=== PATIENT | male | born 1950 | race Caucasian/White ===

== ENCOUNTER 2017-09-22 03:27 | Emergency (ER) | payer OTHER ==
[2017-09-22] MEDS ORDERED: DEXAMETHASONE 10 MG/ML VIAL PO STA (03:45)
[2017-09-22] MEDS ORDERED: ALBUTEROL NEB 2.5 MG/3 ML INH STA (03:45)
[2017-09-22] MEDS ORDERED: IPRATROPIUM 0.2 MG/ML NEB INH STA (03:45)
--- NOTE | 2017-09-22 04:49 | XRAY Report ---
Procedure Date: 09/22/2017 Accession Number: [id number] / [id number] Procedure: XR - Chest 2 View X-Ray CPT Code: 20300 FULL RESULT: EXAM: CHEST RADIOGRAPHY EXAM DATE: 09/22/2017 04:41 AM. CLINICAL HISTORY: [place]. COMPARISON: CXR 1V 12/01/2006. TECHNIQUE: 2 views. FINDINGS: Lungs/Pleura: Basilar atelectasis. No effusion or pneumothorax. Mediastinum: Postoperative changes. No cardiomegaly. Other: None. IMPRESSION: Bibasilar atelectasis. RADIA
--- NOTE | 2017-09-22 05:21 | ED Physician Documentation ---
History of Present Illness - Stated complaint Stated Complaint: SOA - Chief complaint Chief Complaint: Resp - History obtained from History obtained from: Patient - Additonal information Additional information: 67-year-old male presents the emergency department with increasing wheezing and shortness of breath similar to his prior episodes of COPD. Patient has an ongoing history of COPD and did not get significant improvement with his normal inhaler. The patient denies any triggering factors. No fevers, chills, cough.No chest pain or abdominal pain. Symptoms are described as moderate. No other associated symptoms. Review of Systems Constitutional: denies: Fever, Chills Eyes: denies: Discharge Ears: denies: Ear pain Nose: denies: Congestion Throat: denies: Dental pain / toothache Cardiac: denies: Chest pain / pressure Respiratory: reports: Dyspnea, Wheezing GI: denies: Abdominal Pain Musculoskeletal: denies: Neck pain Neurologic: denies: Generalized weakness Immunocompromised: denies: Chemotherapy PD PAST MEDICAL HISTORY - Past Medical History Past Medical History: Yes Cardiovascular: Congestive heart failure, Hypertension, High cholesterol Respiratory: COPD, Emphysema, Shortness of breath : Other Other Past Medical History: Prostate CA - Past Surgical History Past Surgical History: No - Allergies Allergies/Adverse Reactions: Allergies Allergy/AdvReac Type Severity Reaction Status Date / Time buspirone [From BuSpar] Allergy Intermediate Respiratory Verified 09/22/17 03:33 - Social History Does the pt smoke?: Yes Smoking Status: Former smoker Does the pt drink ETOH?: Yes Does the pt have substance abuse?: No - Immunizations Immunizations are current?: Yes PD ED PE NORMAL - General General: Alert and oriented X 3, No acute distress - HEENT HEENT: Atraumatic, PERRL, EOMI, Ears normal - Neck Neck: Supple, no meningeal sign - Cardiac Cardiac: RRR, No gallop - Respiratory Respiratory: Other (The patient has decreased aeration and wheezing diffusely) - Abdomen Abdomen: Soft, Non tender - Derm Derm: Normal color - Extremities Extremities: No deformity - Neuro Neuro: Alert and oriented X 3, Normal speech - Psych Psych: Normal mood Results - Vitals Vitals: Vital Signs - 24 hr 09/22/17 09/22/17 03:33 03:59 Temperature 36.6 C Heart Rate 86 66 Respiratory 20 18 Rate Blood Pressure 163/93 H O2 Saturation 97 Oxygen O2 Source Room air - Rads (name of study) Chest x-ray Radiology: Final report received PD MEDICAL DECISION MAKING - ED course ED course: The patient was treated with a long breathing treatment, the patient was observed in the emergency department and on reevaluation is resting comfortably. The patient had much improved aeration and was reporting that he felt much improved and requested discharge home. The patient currently appears appropriate for discharge. I discussed warning signs and recommended returning to the emergency department immediately for worsening or any concerns. - Sepsis Event Vital Signs: Vital Signs - 24 hr 09/22/17 09/22/17 03:33 03:59 Temperature 36.6 C Heart Rate 86 66 Respiratory 20 18 Rate Blood Pressure 163/93 H O2 Saturation 97 Oxygen O2 Source Room air Departure - Departure Disposition: 01 Home, Self Care Clinical Impression: COPD exacerbation Condition: Good Instructions: COPD Dc, Emphysema Dc Comments: Please follow-up with your primary care physician this week for recheck. Please return to the emergency department immediately for worsening symptoms or any concerns
[2017-09-22 05:24] VITALS: BP 140/76
== END 2017-09-22 05:23 | disposition home or self-care (01) ==
LOC: ED 03:27
DX: J44.1 Chronic obstructive pulmonary disease with (acute) exacerbation (principal); Z87.891 Personal history of nicotine dependence; I11.0 Hypertensive heart disease with heart failure; I50.9 Heart failure, unspecified
CPT/HCPCS: 71046; 94640; 94664; 99283; 99284; A9270

== ENCOUNTER 2017-10-03 09:38 | Outpatient (CLI) | payer OTHER ==
[2017-10-03] MEDS ORDERED: ALBUTEROL NEB 2.5 MG/3 ML INH ONE (12:00)
== END 2017-10-03 09:39 | disposition home or self-care (01) ==
LOC: RT 09:38
PROVIDERS: ATTEND Nurse Practitioner Adult Health
DX: J44.9 Chronic obstructive pulmonary disease, unspecified (principal)
CPT/HCPCS: 94060; 94727

== ENCOUNTER 2017-12-04 10:27 | Outpatient (CLI) | payer OTHER | END 2017-12-04 10:28 | disposition short-term general hospital (02) | LOC: EMS 10:27 | PROVIDERS: ATTEND Surgery | DX: R07.9 Chest pain, unspecified (principal) | CPT/HCPCS: A0425; A0427 ==

== ENCOUNTER 2018-01-18 19:32 | Emergency (ER) | payer OTHER ==
[2018-01-18] MEDS ORDERED: IPRATROPIUM/ALBUTEROL 3 ML NEB INH STA (19:47)
[2018-01-18 19:55] LABS: BASOPHILS # (AUTO) 0.1 10^3/uL (0.0-0.1); BASOPHILS % (AUTO) 0.5 %; EOSINOPHILS # (AUTO) 0.1 10^3/uL (0.0-0.7); EOSINOPHILS % (AUTO) 0.5 %; HGB - HEMOGLOBIN 15.4 g/dL (14.0-18.0); LYMPHOCYTES # (AUTO) 2.6 10^3/uL (1.5-3.5); LYMPHOCYTES % (AUTO) 17.7 %; MEAN CORPUSCULAR HEMOGLOBIN 31.7 pg (27.0-31.0); MEAN CORPUSCULAR HGB CONC 33.7 g/dL (32.0-36.0); MEAN CORPUSCULAR VOLUME 94.1 fL (80.0-94.0); MEAN PLATELET VOLUME 8.1 fL (7.4-11.4); MONOCYTES % (AUTO) 6.9 %; NEUTROPHILS % (AUTO) 74.4 %; PLT - PLATELET COUNT 140 10^3/uL (130-450); RED BLOOD COUNT 4.86 10^6/uL (4.70-6.10); RED CELL DISTRIBUTION WIDTH 14.2 % (12.0-15.0); WHITE BLOOD COUNT 14.8 x10^3/uL (4.8-10.8)
--- NOTE | 2018-01-18 19:59 | ED Physician Documentation ---
PD HPI DYSPNEA - Stated complaint Stated Complaint: SOA - Chief complaint Chief Complaint: Resp - History obtained from History obtained from: Patient - History of Present Illness Timing - onset: How many weeks ago (2 weeks of worse breathing and using nebulizer more. Worse even more the past couple of days. Has cough with some sputum production. Continual wheezing even with nebs.) Timing - onset during: Light activity Timing - details: Gradual onset, Still present Inciting event(s): URI. No: Out of meds Improved by: O2, Inhaler/neb Associated symptoms: Cough, Wheezing, Chest pain / discomfort. No: Fever, Palpitations, Bilateral edema Similar symptoms before: Diagnosis (COPD and had pneumonia recently) Review of Systems Constitutional: reports: Myalgias. denies: Fever, Chills Nose: reports: Rhinorrhea / runny nose, Congestion Cardiac: denies: Chest pain / pressure, Palpitations Respiratory: reports: Dyspnea, Cough, Wheezing GI: denies: Vomiting, Diarrhea Skin: denies: Rash, Lesions Musculoskeletal: denies: Extremity swelling Neurologic: reports: Generalized weakness. denies: Focal weakness, Numbness, Near syncope, Altered mental status PD PAST MEDICAL HISTORY - Past Medical History Cardiovascular: Congestive heart failure, Hypertension, High cholesterol Respiratory: COPD, Emphysema, Shortness of breath : Other - Past Surgical History Past Surgical History: No - Present Medications Home Medications: Ambulatory Orders Medication Instructions Recorded Confirmed Albuterol 2.5 mg INH Q4H PRN #30 neb 01/18/18 Dexamethasone [Decadron] 4 mg PO DAILY #7 tablet 01/18/18 Doxycycline Hyclate 100 mg PO BID #20 capsule 01/18/18 - Allergies Allergies/Adverse Reactions: Allergies Allergy/AdvReac Type Severity Reaction Status Date / Time buspirone [From BuSpar] Allergy Intermediate Respiratory Verified 09/22/17 03:33 - Social History Does the pt smoke?: Yes Smoking Status: Former smoker Does the pt drink ETOH?: Yes Does the pt have substance abuse?: No - Immunizations Immunizations are current?: Yes PD ED PE NORMAL - Vitals Vital signs reviewed: Yes - General General: Alert and oriented X 3, Well developed/nourished, Other (appears in resp distress tripoding. ) - HEENT HEENT: Ears normal, Pharynx benign - Neck Neck: Supple, no meningeal sign, No adenopathy - Cardiac Cardiac: RRR, No murmur - Respiratory Respiratory: No: Clear bilaterally (diffuse wheezing and tight sounds. moderate accessory muscle use. ) - Abdomen Abdomen: Soft, Non tender - Derm Derm: Normal color, Warm and dry - Extremities Extremities: Normal ROM s pain, No edema, No calf tenderness / cord - Neuro Neuro: Alert and oriented X 3, No motor deficit, Normal speech Eye Opening: Spontaneous Motor: Obeys Commands Verbal: Oriented GCS Score: 15 Results - Vitals Vitals: Oxygen O2 Source Nasal cannula Oxygen Flow Rate 2 - EKG (time done) 19:46 Rate: Rate (enter#) (102) Rhythm: Sinus tachycardia [place]: Normal Intervals: Normal SC QRS: Normal Ischemia: Normal ST segments. No: ST elevation c/w ischemia, ST depression Compare to prior EKG: Unchanged from prior EKG - Labs Labs: Laboratory Tests 01/18/18 01/18/18 01/18/18 19:43 19:43 19:43 WBC 14.8 H RBC 4.86 Hgb 15.4 Hct 45.8 MCV 94.1 H MCH 31.7 H MCHC 33.7 RDW 14.2 Plt Count 140 MPV 8.1 Neut # (Auto) 11.0 H Lymph # (Auto) 2.6 [place] # (Auto) 1.0 Eos # (Auto) 0.1 Baso # (Auto) 0.1 Absolute Nucleated RBC 0.01 Nucleated RBC % 0.1 Manual Slide Review Indicated WBC Morphology 2+ HYPERSEG NEUT Platelet Estimate NORMAL (130-450,000) Platelet Morphology 1+ GIANT PLATELETS RBC Morph Micro Appear NORMAL APPEARANCE Sodium 138 Potassium 3.3 L Chloride 105 Carbon Dioxide 26 Anion Gap 7.0 BUN 18 Creatinine 0.9 Estimated GFR (MDRD) 84 L Glucose 157 H Calcium 8.3 L Total Bilirubin 0.6 AST 28 ALT 40 Alkaline Phosphatase 70 Troponin I < 0.04 B-Natriuretic Peptide Total Protein 6.2 L Albumin 3.4 Globulin 2.8 Albumin/Globulin Ratio 1.2 Lipase 37 01/18/18 19:43 WBC RBC Hgb Hct MCV MCH MCHC RDW Plt Count MPV Neut # (Auto) Lymph # (Auto) [place] # (Auto) Eos # (Auto) Baso # (Auto) Absolute Nucleated RBC Nucleated RBC % Manual Slide Review WBC Morphology Platelet Estimate Platelet Morphology RBC Morph Micro Appear Sodium Potassium Chloride Carbon Dioxide Anion Gap BUN Creatinine Estimated GFR (MDRD) Glucose Calcium Total Bilirubin AST ALT Alkaline Phosphatase Troponin I B-Natriuretic Peptide 197 H Total Protein Albumin Globulin Albumin/Globulin Ratio Lipase - Rads (name of study) chest xray Radiology: Prelim report reviewed (somewhat enlarged heart. No infiltrates. ), EMP read contemporaneously PD MEDICAL DECISION MAKING - ED course Complexity details: re-evaluated patient (still wheezing but he feels a lot better and says he always has some wheeze. He feels improved enough to go home. Has nebulizer there. Has home oxygen. ), considered differential (seems flare COPD and likely bronchitis/infectious. ), d/w patient Departure - Departure Disposition: Home, Self Care Clinical Impression: Acute exacerbation of COPD with asthma, Bronchitis Condition: Stable Record reviewed to determine appropriate education?: Yes Instructions: ED Bronchitis Asthmatic, ED COPD Flare Follow-Up: Marcie Mg MD [Primary Care Provider] - Prescriptions: Albuterol 2.5 mg INH Q4H PRN #30 neb PRN Reason: Wheezing Dexamethasone [Decadron] 4 mg PO DAILY #7 tablet Doxycycline Hyclate 100 mg PO BID #20 capsule Comments: Continue usual medications. Use your usual DuoNeb every 4 hours or 4 times a day as you usually do. Add albuterol every 1-2 hours if needed for wheezing. Decadron steroid daily for the following week. Doxycycline antibiotic twice daily for 10 days for presumed infection of bronchitis or early pneumonia. Activity as able. Recheck if not improving over the next couple of days and return sooner if worsening. Discharge Date/Time: 01/18/18 22:11
[2018-01-18 20:12] LABS: ALBUMIN 3.4 g/dL (3.2-5.5); ALBUMIN/GLOBULIN RATIO 1.2 (1.0-2.2); BILIRUBIN,TOTAL 0.6 mg/dL (0.2-1.0); CALCIUM 8.3 mg/dL (8.5-10.3); CREATININE 0.9 mg/dL (0.6-1.2); TOTAL PROTEIN 6.2 g/dL (6.7-8.2)
[2018-01-18] MEDS ORDERED: ALBUTEROL NEB 2.5 MG/3 ML INH STA ×2 (20:21→21:05)
[2018-01-18] MEDS ORDERED: DOXYCYCLINE 100 MG TABLET PO STA (20:21)
[2018-01-18 20:32] LABS: PLATELET ESTIMATE, MANUAL NORMAL (130-450,000) (NORMAL); PLATELET MORPHOLOGY 1+ GIANT PLATELETS (NORMAL); RBC MORPHOLOGY (MULTIPLE) NORMAL APPEARANCE (NORMAL)
[2018-01-18] MEDS ORDERED: DEXAMETHASONE 10 MG/ML VIAL IVP STA (21:05)
--- NOTE | 2018-01-18 21:14 | XRAY Report ---
Reason: dyspnea and cough Procedure Date: 01/18/2018 Accession Number: [id number] / [id number] Procedure: XR - Chest 1 View X-Ray CPT Code: 33427 FULL RESULT: EXAM: CHEST RADIOGRAPHY EXAM DATE: 01/18/2018 08:31 PM. CLINICAL HISTORY: Dyspnea and cough. COMPARISON: Chest x-ray 09/22/2017. TECHNIQUE: 1 view. FINDINGS: Lungs/Pleura: No pleural effusion or pneumothorax. Some attenuation of the vasculature in the upper lungs. Mild right infrahilar linear opacities. Mediastinum: Normal heart size. Status post median sternotomy. Other: None. IMPRESSION: 1. Mild right infrahilar opacities consistent with atelectasis or early pneumonia. 2. Mild attenuation of the vasculature suggesting underlying emphysema. RADIA
[2018-01-18 22:06] VITALS: BP 132/85
== END 2018-01-18 22:11 | disposition home or self-care (01) ==
LOC: ED 19:32
DX: J44.1 Chronic obstructive pulmonary disease with (acute) exacerbation (principal); J45.909 Unspecified asthma, uncomplicated; R00.0 Tachycardia, unspecified; I11.0 Hypertensive heart disease with heart failure; I50.9 Heart failure, unspecified; E78.00 Pure hypercholesterolemia, unspecified; Z87.891 Personal history of nicotine dependence
CPT/HCPCS: 36415; 71045; 80053; 83690; 83880; 84484; 85025; 94640; 96374; 99284; 99285; A9270

== ENCOUNTER 2018-02-04 14:35 | Outpatient (CLI) | payer OTHER | END 2018-02-04 14:36 | disposition critical access hospital (66) | LOC: EMS 14:35 | PROVIDERS: ATTEND Surgery | DX: R06.00 Dyspnea, unspecified (principal) | CPT/HCPCS: A0425; A0427 ==

== ENCOUNTER 2018-02-04 14:47 | Emergency (ER) | payer OTHER ==
--- NOTE | 2018-02-04 14:53 | ED Physician Documentation ---
PD HPI DYSPNEA - Stated complaint Stated Complaint: SOA - History obtained from History obtained from: Patient - History of Present Illness Timing - onset: How many days ago (few) Timing - duration: Days (few) Timing - details: Gradual onset, Still present Inciting event(s): Out of meds ([facility] not [facility] usual Duoneb Rx as yet, so out for couple days, and having some URI symptoms as well.) Improved by: Inhaler/neb (but ran out couple days ago) Worsened by: Exertion Associated symptoms: Cough, Wheezing. No: Fever, Hemoptysis, Bilateral edema Similar symptoms before: Diagnosis Recently seen: Not recently seen Review of Systems Constitutional: reports: Chills, Myalgias. denies: Fever Nose: reports: Rhinorrhea / runny nose, Congestion Throat: denies: Sore throat Respiratory: reports: Dyspnea, Cough, Wheezing GI: denies: Abdominal Pain, Nausea, Vomiting Skin: denies: Rash, Lesions Musculoskeletal: denies: Extremity swelling Neurologic: reports: Generalized weakness. denies: Near syncope PD PAST MEDICAL HISTORY - Past Medical History Cardiovascular: Congestive heart failure, Hypertension, High cholesterol Respiratory: COPD, Emphysema, Shortness of breath : Other - Past Surgical History Past Surgical History: No - Present Medications Home Medications: Ambulatory Orders Medication Instructions Recorded Confirmed Albuterol 2.5 mg INH Q4H PRN #30 neb 01/18/18 Dexamethasone [Decadron] 4 mg PO DAILY #7 tablet 01/18/18 Doxycycline Hyclate 100 mg PO BID #20 capsule 01/18/18 Amox/Clav 875/125 [Augmentin] 1 each PO Q12H #14 tablet 02/04/18 Benzonatate [Tessalon Perle] 100 - 200 mg PO TID PRN #30 capsule 02/04/18 Ipratropium/Albuterol [Duoneb] 3 ml INH Q6H #30 neb 02/04/18 predniSONE [Prednisone] 10 mg PO DAILY #20 tablet 02/04/18 - Allergies Allergies/Adverse Reactions: Allergies Allergy/AdvReac Type Severity Reaction Status Date / Time buspirone [From BuSpar] Allergy Intermediate Respiratory Verified 09/22/17 03:33 - Social History Does the pt smoke?: Yes Smoking Status: Former smoker Does the pt drink ETOH?: Yes Does the pt have substance abuse?: No - Immunizations Immunizations are current?: Yes PD ED PE NORMAL - Vitals Vital signs reviewed: Yes - General General: Alert and oriented X 3, No acute distress, Well developed/nourished - HEENT HEENT: Ears normal, Pharynx benign - Neck Neck: Supple, no meningeal sign, No adenopathy - Cardiac Cardiac: RRR, No murmur - Respiratory Respiratory: No: Clear bilaterally (diminished tidal volume and wheezing noted diffusely. ) - Abdomen Abdomen: Soft, Non tender - Back Back: No CVA TTP - Derm Derm: Normal color, Warm and dry - Extremities Extremities: No tenderness to palpate, Normal ROM s pain, No edema, No calf tenderness / cord - Neuro Neuro: Alert and oriented X 3, No motor deficit, Normal speech Results - Vitals Vitals: Oxygen O2 Source Nasal cannula Oxygen Flow Rate 2 - Labs Labs: Laboratory Tests 02/04/18 02/04/18 02/04/18 15:27 15:27 15:27 WBC 14.0 H RBC 4.94 Hgb 15.6 Hct 46.3 MCV 93.9 MCH 31.6 H MCHC 33.7 RDW 13.9 Plt Count 130 MPV 7.6 Neut # (Auto) Not Reportable Lymph # (Auto) Not Reportable [place] # (Auto) Not Reportable Eos # (Auto) Not Reportable Baso # (Auto) Not Reportable Absolute Nucleated RBC Not Reportable Total Counted 100 Band Neuts % (Manual) 7 Abnorm Lymph % (Manual) 0 Nucleated RBC % Not Reportable Neutrophils # (Manual) 11.9 H Lymphocytes # (Manual) 1.8 Monocytes # (Manual) 0.3 Eosinophils # (Manual) 0.0 Basophils # (Manual) 0.0 Differential Comment MANUAL DIFFERENTIAL Manual Slide Review Indicated WBC Morphology NORMAL APPEARANCE Platelet Estimate NORMAL (130-450,000) Platelet Morphology NORMAL APPEARANCE RBC Morph Micro Appear NORMAL APPEARANCE Sodium 136 Potassium 4.2 Chloride 100 L Carbon Dioxide 28 Anion Gap 8.0 BUN 20 Creatinine 0.8 Estimated GFR (MDRD) 96 Glucose 215 H Calcium 8.6 Total Bilirubin 1.5 H AST 29 ALT 65 H Alkaline Phosphatase 81 Troponin I < 0.04 B-Natriuretic Peptide Total Protein 5.8 L Albumin 3.4 Globulin 2.4 Albumin/Globulin Ratio 1.4 Lipase 02/04/18 15:27 WBC RBC Hgb Hct MCV MCH MCHC RDW Plt Count MPV Neut # (Auto) Lymph # (Auto) [place] # (Auto) Eos # (Auto) Baso # (Auto) Absolute Nucleated RBC Total Counted Band Neuts % (Manual) Abnorm Lymph % (Manual) Nucleated RBC % Neutrophils # (Manual) Lymphocytes # (Manual) Monocytes # (Manual) Eosinophils # (Manual) Basophils # (Manual) Differential Comment Manual Slide Review WBC Morphology Platelet Estimate Platelet Morphology RBC Morph Micro Appear Sodium Potassium Chloride Carbon Dioxide Anion Gap BUN Creatinine Estimated GFR (MDRD) Glucose Calcium Total Bilirubin AST ALT Alkaline Phosphatase Troponin I B-Natriuretic Peptide 132 H Total Protein Albumin Globulin Albumin/Globulin Ratio Lipase - Rads (name of study) chest xray Radiology: Prelim report reviewed, EMP read contemporaneously (no significant infiltrates), See rad report PD MEDICAL DECISION MAKING - ED course Complexity details: reviewed results, re-evaluated patient (improved with neb. ), considered differential (given history of COPD, with resp infection and flare of it, would treat with abx for likely improved outcome. ), d/w patient Departure - Departure Disposition: Home, Self Care Clinical Impression: Acute exacerbation of COPD with asthma, Bronchitis Dyspnea Qualifiers: Dyspnea type: dyspnea on exertion Qualified Code(s): R06.09 - Other forms of dyspnea Condition: Stable Record reviewed to determine appropriate education?: Yes Follow-Up: Marcie Mg MD [Primary Care Provider] - Prescriptions: Amox/Clav 875/125 [Augmentin] 1 each PO Q12H #14 tablet Benzonatate [Tessalon Perle] 100 - 200 mg PO TID PRN #30 capsule PRN Reason: Cough Ipratropium/Albuterol [Duoneb] 3 ml INH Q6H #30 neb predniSONE [Prednisone] 10 mg PO DAILY #20 tablet Comments: Continue usual medications. Increase her prednisone to 20 mg daily for the next 3 or 4 days and then back down to 10 mg. Continue your duo nebs 4 times a day. Add Augmentin antibiotic twice daily for a week. Use Tessalon if needed for cough. Follow-up with your primary care if not improving over the next couple of days and return sooner if worse. Discharge Date/Time: 02/04/18 16:45
[2018-02-04 15:03] VITALS: BP 119/65
[2018-02-04] MEDS: SODIUM CHLORIDE 0.9% 500 ML IV ONE (15:34)
[2018-02-04 15:35] LABS: BASOPHILS % (AUTO) 0.2 %; HGB - HEMOGLOBIN 15.6 g/dL (14.0-18.0); LYMPHOCYTES % (AUTO) 7.5 %; MEAN CORPUSCULAR HEMOGLOBIN 31.6 pg (27.0-31.0); MEAN CORPUSCULAR HGB CONC 33.7 g/dL (32.0-36.0); MEAN CORPUSCULAR VOLUME 93.9 fL (80.0-94.0); MEAN PLATELET VOLUME 7.6 fL (7.4-11.4); MONOCYTES % (AUTO) 5.3 %; PLT - PLATELET COUNT 130 10^3/uL (130-450); RED BLOOD COUNT 4.94 10^6/uL (4.70-6.10); RED CELL DISTRIBUTION WIDTH 13.9 % (12.0-15.0)
[2018-02-04 15:36] LABS: ABNORMAL LYMPHS % (MANUAL) 0 %
[2018-02-04 15:47] LABS: ALBUMIN 3.4 g/dL (3.2-5.5); ALBUMIN/GLOBULIN RATIO 1.4 (1.0-2.2); BILIRUBIN,TOTAL 1.5 mg/dL (0.2-1.0); CALCIUM 8.6 mg/dL (8.5-10.3); CREATININE 0.8 mg/dL (0.6-1.2); TOTAL PROTEIN 5.8 g/dL (6.7-8.2)
[2018-02-04 15:53] LABS: BAND NEUTROPHILS % (MANUAL) 7 %; LYMPHOCYTES # (MANUAL) 1.8 10^3/uL (1.5-3.5); LYMPHOCYTES % (MANUAL) 13 %; MONOCYTES # (MANUAL) 0.3 10^3/uL (0.0-1.0); NEUTROPHILS # (MANUAL) 11.9 10^3/uL (1.5-6.6); NEUTROPHILS % (MANUAL) 78 %
[2018-02-04 15:54] LABS: DIFFERENTIAL COMMENT MANUAL DIFFERENTIAL; PLATELET ESTIMATE, MANUAL NORMAL (130-450,000) (NORMAL); PLATELET MORPHOLOGY NORMAL APPEARANCE (NORMAL); RBC MORPHOLOGY (MULTIPLE) NORMAL APPEARANCE (NORMAL)
[2018-02-04] MEDS: cefTRIAXone 1 GM VIAL IVP STA (15:56)
[2018-02-04] MEDS: DEXAMETHASONE 10 MG/ML VIAL IVP STA (15:56)
[2018-02-04] MEDS: IPRATROPIUM/ALBUTEROL 3 ML NEB INH STA (15:58)
--- NOTE | 2018-02-04 16:21 | XRAY Report ---
Reason: dyspnea and cough Procedure Date: 02/04/2018 Accession Number: [id number] / [id number] Procedure: XR - Chest 2 View X-Ray CPT Code: 67187 FULL RESULT: EXAM: CHEST RADIOGRAPHY EXAM DATE: 02/04/2018 03:47 PM. CLINICAL HISTORY: Dyspnea and cough. COMPARISON: CHEST 1 VIEW 01/18/2018 8:21 PM. TECHNIQUE: 2 views. FINDINGS: Lungs/Pleura: No consolidative process or focal pneumonia. Negative for pleural effusion and pneumothorax. Lung volumes appear within normal limits. Mediastinum: Previous median sternotomy noted. Trachea is midline. Heart size is normal. Other: None. IMPRESSION: Negative for an acute cardiopulmonary abnormality. RADIA
== END 2018-02-04 16:45 | disposition home or self-care (01) ==
LOC: EDUNIT# → ED 14:47
DX: J44.1 Chronic obstructive pulmonary disease with (acute) exacerbation (principal); J40 Bronchitis, not specified as acute or chronic; I11.0 Hypertensive heart disease with heart failure; I50.9 Heart failure, unspecified; E78.00 Pure hypercholesterolemia, unspecified; Z87.891 Personal history of nicotine dependence
CPT/HCPCS: 36415; 71046; 80053; 83690; 83880; 84484; 85025; 94640; 96374; 99283; 99284

== ENCOUNTER 2018-02-09 02:04 | Outpatient (CLI) | payer OTHER | END 2018-02-09 02:05 | disposition critical access hospital (66) | LOC: EMS 02:04 | PROVIDERS: ATTEND Surgery | DX: R06.02 Shortness of breath (principal); R53.1 Weakness | CPT/HCPCS: A0425; A0427 ==

== ENCOUNTER 2018-02-10 16:09 | Outpatient (CLI) | payer OTHER | END 2018-02-10 16:10 | disposition critical access hospital (66) | LOC: EMS 16:09 | PROVIDERS: ATTEND Surgery | DX: R10.30 Lower abdominal pain, unspecified (principal); R19.8 Other specified symptoms and signs involving the digestive system and abdomen | CPT/HCPCS: A0425; A0429 ==

== ENCOUNTER 2018-02-21 23:27 | Outpatient (CLI) | payer OTHER | END 2018-02-21 23:28 | disposition critical access hospital (66) | LOC: EMS 23:27 | PROVIDERS: ATTEND Surgery | DX: R06.00 Dyspnea, unspecified (principal) | CPT/HCPCS: A0425; A0427 ==

== ENCOUNTER 2018-02-21 23:35 | Emergency (ER) | payer OTHER ==
[2018-02-21] MEDS ORDERED: methylPREDNISolone SUCCINATE 125 MG/2 ML VIAL IVP STA (23:43)
--- NOTE | 2018-02-22 00:03 | XRAY Report ---
Reason: dyspena Procedure Date: 02/21/2018 Accession Number: [id number] / [id number] Procedure: XR - Chest 1 View X-Ray CPT Code: 38348 FULL RESULT: EXAM: CHEST RADIOGRAPHY EXAM DATE: 02/21/2018 11:56 PM. CLINICAL HISTORY: Dyspena. COMPARISON: CHEST 1 VIEW 02/09/2018 2:32 AM. TECHNIQUE: 1 view. FINDINGS: Lungs/Pleura: No focal opacities evident. No pleural effusion. No pneumothorax. Mediastinum: Within exam limitations, the cardiomediastinal contour is normal. Other: None. IMPRESSION: Normal single view chest. RADIA
[2018-02-22 00:17] LABS: VBG PCO2 34.4 mmHg (41-51); VBG PH 7.46 (7.31-7.41); VBG PO2 91.9 mmHg (25-47)
[2018-02-22 00:18] LABS: VBG BASE EXCESS 0.6 mmol/L (-2 - +2)
--- NOTE | 2018-02-22 00:22 | ED Physician Documentation ---
PD HPI DYSPNEA - Stated complaint Stated Complaint: SOA - Chief complaint Chief Complaint: Resp - History obtained from History obtained from: Patient, Family, EMS - History of Present Illness Timing - onset: How many weeks ago (4) Timing - onset during: Rest Timing - duration: Weeks (4) Timing - details: Gradual onset, Still present, Waxing and waning Inciting event(s): URI Improved by: Inhaler/neb, Steroids Worsened by: Exertion, Coughing Associated symptoms: Cough, Wheezing. 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 Over the past 4 weeks he has had increased symptoms of dyspnea and cough. He has coughed up some yellow and green phlegm but he has not had fever or chest pain. He states that he has been taking some prednisone he is gone to taking 20 mg/day which seemed to help for a while and this is not helping any longer. He was unable to get any relief with 30 mg today and called the ambulance. He has been using his rescue inhaler and nebulizer machine. He has been placed on oxygen within the past month. He has an appointment to see the oyster buyer in 4 days. Review of Systems Constitutional: reports: Fatigue. denies: Fever Eyes: denies: Decreased vision Ears: denies: Ear pain Nose: reports: Congestion. denies: Rhinorrhea / runny nose Throat: denies: Sore throat Cardiac: denies: Chest pain / pressure, Palpitations Respiratory: reports: Dyspnea, Cough, Wheezing. denies: Hemoptysis GI: denies: Abdominal Pain, Nausea, Vomiting : denies: Dysuria, Frequency Musculoskeletal: denies: Neck pain, Back pain, Extremity pain Neurologic: denies: Generalized weakness, Focal weakness, Numbness Endocrine: reports: Polydypsia PD PAST MEDICAL HISTORY - Past Medical History Cardiovascular: Congestive heart failure, Hypertension, High cholesterol Respiratory: COPD, Emphysema, Shortness of breath : Other - Past Surgical History Past Surgical History: No - Present Medications Home Medications: Ambulatory Orders Medication Instructions Recorded Confirmed Albuterol 2.5 mg INH Q4H PRN #30 neb 01/18/18 Dexamethasone [Decadron] 4 mg PO DAILY #7 tablet 01/18/18 Doxycycline Hyclate 100 mg PO BID #20 capsule 01/18/18 Amox/Clav 875/125 [Augmentin] 1 each PO Q12H #14 tablet 02/04/18 Benzonatate [Tessalon Perle] 100 - 200 mg PO TID PRN #30 capsule 02/04/18 predniSONE [Prednisone] 10 mg PO DAILY #20 tablet 02/04/18 Azithromycin [Zithromax] 0 mg PO DAILY #6 tablet 02/09/18 Ipratropium/Albuterol [Duoneb] 3 ml INH Q6H #30 neb 02/09/18 predniSONE [Deltasone] 10 mg PO [id number] #30 tab 02/09/18 Amox/Clav 875/125 [Augmentin] 1 each PO Q12H #14 tablet 02/22/18 predniSONE [Deltasone] 10 mg PO ONCE #26 tablet 02/22/18 - Allergies Allergies/Adverse Reactions: Allergies Allergy/AdvReac Type Severity Reaction Status Date / Time buspirone [From BuSpar] Allergy Intermediate Respiratory Verified 02/10/18 16:39 - Social History Does the pt smoke?: Yes Smoking Status: Current every day smoker Does the pt drink ETOH?: Yes Does the pt have substance abuse?: No - Immunizations Immunizations are current?: Yes - POLST Patient has POLST: No PD ED PE NORMAL - Vitals Vital signs reviewed: Yes - General General: Alert and oriented X 3, Well developed/nourished, Other (acute dyspnea speaking in 4-6 word sentences ) - HEENT HEENT: Atraumatic, PERRL, EOMI, Other (mild inflamation along the umbo on the left side dry mucous membranes ) - Neck Neck: Supple, no meningeal sign, No bony TTP - Cardiac Cardiac: RRR, No murmur - Respiratory Respiratory: Other (tachypnea at rest with fine wheeze and diminished breat sounds bilaterally ) - Abdomen Abdomen: Soft, Non tender - Back Back: No CVA TTP, No spinal TTP - Derm Derm: Normal color, Warm and dry, No rash - Extremities Extremities: No deformity, Normal ROM s pain, No edema, No calf tenderness / cord - Neuro Neuro: Alert and oriented X 3, 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, No motor deficit, No sensory deficit, Normal speech Eye Opening: Spontaneous Motor: Obeys Commands Verbal: Oriented GCS Score: 15 - Psych Psych: Normal mood, Normal affect Results - Vitals Vitals: Vital Signs - 24 hr 02/21/18 02/22/18 02/22/18 23:40 00:46 01:09 Temperature 36.1 C L Heart Rate 99 95 85 Respiratory 28 H 20 20 Rate Blood Pressure 128/81 H 103/55 L 122/77 O2 Saturation 99 94 99 Oxygen O2 Source Room air Oxygen Flow Rate 2 - Labs Labs: Laboratory Tests 02/21/18 02/22/18 02/22/18 00:05 00:05 00:05 WBC 14.7 H RBC 4.36 L Hgb 13.7 L Hct 40.2 L MCV 92.3 MCH 31.5 H MCHC 34.1 RDW 14.0 Plt Count 142 MPV 7.9 Neut # (Auto) Not Reportable Lymph # (Auto) Not Reportable Arthur # (Auto) Not Reportable Eos # (Auto) Not Reportable Baso # (Auto) Not Reportable Absolute Nucleated RBC Not Reportable Total Counted 100 Band Neuts % (Manual) 6 Reactive Lymphs % (Man) 5 Abnorm Lymph % (Manual) 0 Metamyelocytes % 1 H Nucleated RBC % Not Reportable Neutrophils # (Manual) 12.8 H Lymphocytes # (Manual) 1.3 L Monocytes # (Manual) 0.4 Eosinophils # (Manual) 0.0 Basophils # (Manual) 0.0 Differential Comment MANUAL DIFFERENTIAL Platelet Estimate NORMAL (130-450,000) Platelet Morphology NORMAL APPEARANCE RBC Morph Micro Appear NORMAL APPEARANCE VBG pH VBG pCO2 VBG pO2 VBG HCO3 VBG Total CO2 VBG O2 Saturation VBG Base Excess Sodium 139 Potassium 4.4 Chloride 105 Carbon Dioxide 25 Anion Gap 9.0 BUN 15 Creatinine 0.8 Estimated GFR (MDRD) 96 Glucose 164 H Lactic Acid Calcium 8.7 Total Bilirubin 0.9 AST 22 ALT 46 Alkaline Phosphatase 98 Troponin I < 0.04 B-Natriuretic Peptide Total Protein 5.7 L Albumin 3.1 L Globulin 2.6 Albumin/Globulin Ratio 1.2 Lipase 27 02/22/18 02/22/18 02/22/18 00:05 00:05 00:05 WBC RBC Hgb Hct MCV MCH MCHC RDW Plt Count MPV Neut # (Auto) Lymph # (Auto) Arthur # (Auto) Eos # (Auto) Baso # (Auto) Absolute Nucleated RBC Total Counted Band Neuts % (Manual) Reactive Lymphs % (Man) Abnorm Lymph % (Manual) Metamyelocytes % Nucleated RBC % Neutrophils # (Manual) Lymphocytes # (Manual) Monocytes # (Manual) Eosinophils # (Manual) Basophils # (Manual) Differential Comment Platelet Estimate Platelet Morphology RBC Morph Micro Appear VBG pH 7.460 H VBG pCO2 34.4 L VBG pO2 91.9 H VBG HCO3 23.9 VBG Total CO2 25.0 VBG O2 Saturation 96.8 H VBG Base Excess 0.6 Sodium Potassium Chloride Carbon Dioxide Anion Gap BUN Creatinine Estimated GFR (MDRD) Glucose Lactic Acid 2.3 H Calcium Total Bilirubin AST ALT Alkaline Phosphatase Troponin I B-Natriuretic Peptide 161 H Total Protein Albumin Globulin Albumin/Globulin Ratio Lipase - Rads (name of study) 1 veiw chest Radiology: Prelim report reviewed (Impression normal single view chest.), EMP read indepedently, See rad report Procedures - IVC sono (time) 0100 Bedside IVC sono: IVC measures (cm) (1.07), IVC collapsed c insp (cm) (complete), Dehydration (est 1 liter deficit) PD MEDICAL DECISION MAKING - ED course Complexity details: reviewed old records, reviewed results, re-evaluated patient, considered differential, d/w patient, d/w family ED course: 67-year-old male with steroid-dependent asthma presents to the emergency department with acute dyspnea and he does not appear to have acute pneumonia but an exacerbation of his COPD. He has been coughing up some scant amount of yellow and green phlegm and on examination has signs of otitis in the left ear. In the emergency department he is administered Solu-Medrol 125 mg intravenously and he feels this has a prompt and sustained noticeable improvement. This improvement happens in a short order. On interrogation of the inferior vena cava the patient is found to be dehydrated and he is administered intravenous saline as well. His lactate was 2.3 on arrival. He is also administered Rocephin 1 g intravenously. Chest x-ray appea rs dry. The patient will need an increase in his prednisone we will put him on a taper starting at 60 mg/day and lowering to 40 mg by the time he goes into see his oyster buyer. Departure - Departure Disposition: 01 Home, Self Care Clinical Impression: COPD exacerbation Otitis media Qualifiers: Otitis media type: suppurative Chronicity: acute Laterality: left Recurrence: not specified as recurrent Spontaneous tympanic membrane rupture: without spontaneous rupture Qualified Code(s): H66.002 - Acute suppurative otitis media without spontaneous rupture of ear drum, left ear Condition: Stable Instructions: ED COPD Flare, ED Otitis Media Acute Adult Follow-Up: Marcie Mg MD [Primary Care Provider] - Prescriptions: Amox/Clav 875/125 [Augmentin] 1 each PO Q12H #14 tablet predniSONE [Deltasone] 10 mg PO ONCE #26 tablet
[2018-02-22 00:23] LABS: BASOPHILS % (AUTO) 0.6 %; HGB - HEMOGLOBIN 13.7 g/dL (14.0-18.0); LYMPHOCYTES % (AUTO) 9.4 %; MEAN CORPUSCULAR HEMOGLOBIN 31.5 pg (27.0-31.0); MEAN CORPUSCULAR HGB CONC 34.1 g/dL (32.0-36.0); MEAN CORPUSCULAR VOLUME 92.3 fL (80.0-94.0); MEAN PLATELET VOLUME 7.9 fL (7.4-11.4); MONOCYTES % (AUTO) 5.5 %; NEUTROPHILS % (AUTO) 84.5 %; PLT - PLATELET COUNT 142 10^3/uL (130-450); RED BLOOD COUNT 4.36 10^6/uL (4.70-6.10); WHITE BLOOD COUNT 14.7 x10^3/uL (4.8-10.8)
[2018-02-22 00:28] LABS: ALBUMIN 3.1 g/dL (3.2-5.5); ALBUMIN/GLOBULIN RATIO 1.2 (1.0-2.2); BILIRUBIN,TOTAL 0.9 mg/dL (0.2-1.0); CALCIUM 8.7 mg/dL (8.5-10.3); CREATININE 0.8 mg/dL (0.6-1.2); TOTAL PROTEIN 5.7 g/dL (6.7-8.2)
[2018-02-22 00:31] LABS: ABNORMAL LYMPHS % (MANUAL) 0 %
[2018-02-22] MEDS ORDERED: cefTRIAXone 1 GM in SODIUM CHLORIDE 0.9% MINIBAG 100 ML IV STA (00:44)
[2018-02-22] MEDS ORDERED: SODIUM CHLORIDE 0.9% 1,000 ML IV ONE (00:45)
[2018-02-22 00:46] LABS: BAND NEUTROPHILS % (MANUAL) 6 %; LYMPHOCYTES # (MANUAL) 1.3 10^3/uL (1.5-3.5); LYMPHOCYTES % (MANUAL) 4 %; METAMYELOCYTES % (MANUAL) 1 %; MONOCYTES # (MANUAL) 0.4 10^3/uL (0.0-1.0); NEUTROPHILS # (MANUAL) 12.8 10^3/uL (1.5-6.6); NEUTROPHILS % (MANUAL) 81 %
[2018-02-22 00:47] LABS: DIFFERENTIAL COMMENT MANUAL DIFFERENTIAL; PLATELET ESTIMATE, MANUAL NORMAL (130-450,000) (NORMAL); PLATELET MORPHOLOGY NORMAL APPEARANCE (NORMAL); RBC MORPHOLOGY (MULTIPLE) NORMAL APPEARANCE (NORMAL)
[2018-02-22 02:32] VITALS: BP 134/83
== END 2018-02-22 02:42 | disposition home or self-care (01) ==
LOC: EDUNIT# → ED 23:35
DX: J44.1 Chronic obstructive pulmonary disease with (acute) exacerbation (principal); H66.002 Acute suppurative otitis media without spontaneous rupture of ear drum, left ear; I11.0 Hypertensive heart disease with heart failure; I50.9 Heart failure, unspecified; E78.00 Pure hypercholesterolemia, unspecified; F17.200 Nicotine dependence, unspecified, uncomplicated
CPT/HCPCS: 36415; 71045; 80053; 82803; 83605; 83690; 83880; 84484; 85025; 87040; 96365; 96375; 99284

== ENCOUNTER 2018-03-03 14:37 | Emergency (ER) | payer OTHER ==
[2018-03-03 15:39] LABS: BASOPHILS % (AUTO) 0.5 %; EOSINOPHILS % (AUTO) 0.1 %; HGB - HEMOGLOBIN 14.3 g/dL (14.0-18.0); LYMPHOCYTES % (AUTO) 8.3 %; MEAN CORPUSCULAR HEMOGLOBIN 31.9 pg (27.0-31.0); MEAN CORPUSCULAR HGB CONC 34.9 g/dL (32.0-36.0); MEAN CORPUSCULAR VOLUME 91.3 fL (80.0-94.0); MEAN PLATELET VOLUME 8.2 fL (7.4-11.4); MONOCYTES % (AUTO) 6.5 %; NEUTROPHILS % (AUTO) 84.6 %; PLT - PLATELET COUNT 134 10^3/uL (130-450); RED BLOOD COUNT 4.47 10^6/uL (4.70-6.10); RED CELL DISTRIBUTION WIDTH 14.6 % (12.0-15.0); WHITE BLOOD COUNT 15.2 x10^3/uL (4.8-10.8)
[2018-03-03 15:40] LABS: BILIRUBIN,URINE NEGATIVE (NEGATIVE); GLUCOSE, URINE (UA) NEGATIVE (NEGATIVE); KETONES,URINE (UA) NEGATIVE (NEGATIVE); LEUKOCYTE ESTERASE, URINE NEGATIVE (NEGATIVE); NITRITE,URINE NEGATIVE (NEGATIVE); OCCULT BLOOD,URINE NEGATIVE (NEGATIVE); PROTEIN,URINE NEGATIVE (NEGATIVE); UROBILINOGEN,URINE 0.2 (NORMAL) E.U./dL (NORMAL)
[2018-03-03 15:41] LABS: ALBUMIN 3.2 g/dL (3.2-5.5); ALBUMIN/GLOBULIN RATIO 1.2 (1.0-2.2); CALCIUM 9.1 mg/dL (8.5-10.3); CREATININE 1.1 mg/dL (0.6-1.2); TOTAL PROTEIN 5.9 g/dL (6.7-8.2)
[2018-03-03 15:43] LABS: ABNORMAL LYMPHS % (MANUAL) 0 %
[2018-03-03 15:43] LABS: CLARITY,URINE CLEAR (CLEAR)
[2018-03-03] MEDS ORDERED: IPRATROPIUM/ALBUTEROL 3 ML NEB INH STA (15:58)
[2018-03-03 16:12] LABS: BAND NEUTROPHILS % (MANUAL) 2 %; LYMPHOCYTES # (MANUAL) 1.4 10^3/uL (1.5-3.5); LYMPHOCYTES % (MANUAL) 5 %; MONOCYTES # (MANUAL) 0.3 10^3/uL (0.0-1.0); NEUTROPHILS # (MANUAL) 13.5 10^3/uL (1.5-6.6); NEUTROPHILS % (MANUAL) 87 %
[2018-03-03 16:13] LABS: DIFFERENTIAL COMMENT MANUAL DIFFERENTIAL; PLATELET ESTIMATE, MANUAL NORMAL (130-450,000) (NORMAL); PLATELET MORPHOLOGY NORMAL APPEARANCE (NORMAL); RBC MORPHOLOGY (MULTIPLE) NORMAL APPEARANCE (NORMAL)
--- NOTE | 2018-03-03 16:31 | XRAY Report ---
Reason: chest pain Procedure Date: 03/03/2018 Accession Number: [id number] / [id number] Procedure: XR - Chest 1 View X-Ray CPT Code: 24005 FULL RESULT: EXAM: CHEST RADIOGRAPHY EXAM DATE: 03/03/2018 04:14 PM. CLINICAL HISTORY: Chest pain. COMPARISON: None. TECHNIQUE: 1 view. FINDINGS: Lungs/Pleura: Blunting left costophrenic angle consistent with small effusion. Left basilar atelectasis. Mild atelectasis right costophrenic angle. Mediastinum: Post sternotomy. Heart size normal. Other: None. IMPRESSION: Left basilar atelectasis, small left effusion. RADIA
[2018-03-03] MEDS ORDERED: FUROSEMIDE 40 MG/4 ML VIAL IVP STA (16:52)
--- NOTE | 2018-03-03 18:53 | ED Physician Documentation ---
History of Present Illness - Stated complaint Stated Complaint: WEAKNESS, UNABLE TO STAND - Chief complaint Chief Complaint: General - History obtained from History obtained from: Patient - History of Present Illness Timing: How many days ago (2) Pain level max: 3 Pain level now: 3 Severity Comments: Mild Quality: Dull Radiates to: None Improved by: Nothing Worsened by: Nothing Associated symptoms: Shortness of breath Review of Systems Ten Systems: 10 systems reviewed and negative Constitutional: reports: Reviewed and negative Eyes: reports: Reviewed and negative Ears: reports: Reviewed and negative Nose: reports: Reviewed and negative Throat: reports: Reviewed and negative Cardiac: reports: Reviewed and negative Respiratory: reports: Reviewed and negative GI: reports: Reviewed and negative : reports: Reviewed and negative Skin: reports: Reviewed and negative Musculoskeletal: reports: Reviewed and negative Neurologic: reports: Reviewed and negative Psychiatric: reports: Reviewed and negative Endocrine: reports: Reviewed and negative Immunocompromised: reports: Reviewed and negative PD PAST MEDICAL HISTORY - Past Medical History Cardiovascular: Congestive heart failure, Hypertension, High cholesterol Respiratory: COPD, Emphysema, Shortness of breath Neuro: Head injury Endocrine/Autoimmune: Type 1 diabetes GI: GERD : Other Musculoskeletal: Osteoarthritis - Past Surgical History Past Surgical History: No Cardiovascular: CABG HEENT: Cataracts - Present Medications Home Medications: Ambulatory Orders Medication Instructions Recorded Confirmed Albuterol 2.5 mg INH Q4H PRN #30 neb 01/18/18 03/03/18 predniSONE [Prednisone] 10 mg PO DAILY #20 tablet 02/04/18 03/03/18 Azithromycin [Zithromax] 0 mg PO DAILY #6 tablet 02/09/18 Ipratropium/Albuterol [Duoneb] 3 ml INH Q6H #30 neb 02/09/18 03/03/18 predniSONE [Deltasone] 10 mg PO [id number] #30 tab 02/09/18 03/03/18 predniSONE [Deltasone] 10 mg PO ONCE #26 tablet 02/22/18 03/03/18 - Allergies Allergies/Adverse Reactions: Allergies Allergy/AdvReac Type Severity Reaction Status Date / Time buspirone [From BuSpar] Allergy Intermediate Respiratory Verified 03/03/18 14:49 - Social History Does the pt smoke?: Yes Smoking Status: Current every day smoker Does the pt drink ETOH?: Yes Does the pt have substance abuse?: No - Immunizations Immunizations are current?: Yes - POLST Patient has POLST: No PD ED PE NORMAL - Vitals Vital signs reviewed: Yes - General General: Alert and oriented X 3, No acute distress - HEENT HEENT: PERRL - Neck Neck: Supple, no meningeal sign - Cardiac Cardiac: RRR, No murmur - Respiratory Respiratory: Clear bilaterally - Abdomen Abdomen: Normal bowel sounds, Soft, Non tender, Non distended - Derm Derm: Warm and dry - Extremities Extremities: No deformity, Other (Mild pitting edema bilaterally) - Neuro Neuro: Alert and oriented X 3 - Psych Psych: Normal mood, Normal affect Results - Vitals Vitals: Vital Signs - 24 hr 03/03/18 03/03/18 03/03/18 14:44 16:27 17:00 Temperature 36.9 C Heart Rate 102 H 95 93 Respiratory 14 21 24 Rate Blood Pressure 91/52 L 110/89 H O2 Saturation 95 98 03/03/18 19:03 Temperature 36.8 C Heart Rate 108 H Respiratory 20 Rate Blood Pressure 97/76 O2 Saturation 96 Oxygen O2 Source Room air Oxygen Flow Rate 3 - EKG (time done) 1616 Rate: Rate (enter#) (93) Rhythm: NSR [place]: Normal Intervals: Normal [place] QRS: Normal Ischemia: Normal ST segments. No: T wave inversion - Labs Labs: Laboratory Tests 03/03/18 03/03/18 03/03/18 15:19 15:19 15:19 WBC 15.2 H RBC 4.47 L Hgb 14.3 Hct 40.8 L MCV 91.3 MCH 31.9 H MCHC 34.9 RDW 14.6 Plt Count 134 MPV 8.2 Neut # (Auto) Not Reportable Lymph # (Auto) Not Reportable Mckean # (Auto) Not Reportable Eos # (Auto) Not Reportable Baso # (Auto) Not Reportable Absolute Nucleated RBC Not Reportable Total Counted 100 Band Neuts % (Manual) 2 Reactive Lymphs % (Man) 4 Abnorm Lymph % (Manual) 0 Nucleated RBC % Not Reportable Neutrophils # (Manual) 13.5 H Lymphocytes # (Manual) 1.4 L Monocytes # (Manual) 0.3 Eosinophils # (Manual) 0.0 Basophils # (Manual) 0.0 Differential Comment MANUAL DIFFERENTIAL Platelet Estimate NORMAL (130-450,000) Platelet Morphology NORMAL APPEARANCE RBC Morph Micro Appear NORMAL APPEARANCE Sodium 132 L Potassium 3.9 Chloride 93 L Carbon Dioxide 28 Anion Gap 11.0 BUN 34 H Creatinine 1.1 Estimated GFR (MDRD) 67 L Glucose 133 H Calcium 9.1 Total Bilirubin 1.0 AST 30 ALT 46 Alkaline Phosphatase 80 Troponin I < 0.04 B-Natriuretic Peptide Total Protein 5.9 L Albumin 3.2 Globulin 2.7 Albumin/Globulin Ratio 1.2 Lipase 93 H Urine Color Urine Clarity Urine pH Ur Specific [place] Urine Protein Urine Glucose (UA) Urine Ketones Urine Occult Blood Urine Nitrite Urine Bilirubin Urine Urobilinogen Ur Leukocyte Esterase Ur Microscopic Review Urine Culture Comments 03/03/18 03/03/18 15:19 15:23 WBC RBC Hgb Hct MCV MCH MCHC RDW Plt Count MPV Neut # (Auto) Lymph # (Auto) Mckean # (Auto) Eos # (Auto) Baso # (Auto) Absolute Nucleated RBC Total Counted Band Neuts % (Manual) Reactive Lymphs % (Man) Abnorm Lymph % (Manual) Nucleated RBC % Neutrophils # (Manual) Lymphocytes # (Manual) Monocytes # (Manual) Eosinophils # (Manual) Basophils # (Manual) Differential Comment Platelet Estimate Platelet Morphology RBC Morph Micro Appear Sodium Potassium Chloride Carbon Dioxide Anion Gap BUN Creatinine Estimated GFR (MDRD) Glucose Calcium Total Bilirubin AST ALT Alkaline Phosphatase Troponin I B-Natriuretic Peptide 109 H Total Protein Albumin Globulin Albumin/Globulin Ratio Lipase Urine Color YELLOW Urine Clarity CLEAR Urine pH 5.0 Ur Specific [place] >=1.030 H Urine Protein NEGATIVE Urine Glucose (UA) NEGATIVE Urine Ketones NEGATIVE Urine Occult Blood NEGATIVE Urine Nitrite NEGATIVE Urine Bilirubin NEGATIVE Urine Urobilinogen 0.2 (NORMAL) Ur Leukocyte Esterase NEGATIVE Ur Microscopic Review NOT INDICATED Urine Culture Comments NOT INDICATED - Rads (name of study) Chest XRAY Radiology: Prelim report reviewed, Final report received (IMPRESSION: Left basilar atelectasis, small left effusion. ) PD MEDICAL DECISION MAKING - ED course Complexity details: reviewed old records, reviewed results, re-evaluated patient, considered differential, d/w patient, d/w family ED course: 67-year-old male with history of CHF presents with bilateral lower extremity weakness, swelling, shortness of breath with exertion. BNP mildly elevated. Patient given twice his home dose of Lasix by IV. Patient able to ambulate without difficulty. Vital signs are reassuring. EKG is unremarkable. Chest x- ray shows mild fluid overload. Patient discharged home on increased dose of Lasix and will follow-up with PCP in 2 days. Departure - Departure Disposition: 01 Home, Self Care Clinical Impression: CHF exacerbation Qualifiers: Heart failure type: unspecified Qualified Code(s): I50.9 - Heart failure, unspecified Instructions: ED CHF General Follow-Up: Marcie gM MD [Primary Care Provider] - Comments: Please double dose of lasix for next two days. Return with worsening symptoms. Follow up with PCP in 1-2 days. Discharge Date/Time: 03/03/18 19:15
[2018-03-03 19:04] VITALS: BP 97/76
== END 2018-03-03 19:15 | disposition home or self-care (01) ==
LOC: ED 14:37
DX: I11.0 Hypertensive heart disease with heart failure (principal); I50.9 Heart failure, unspecified; J98.11 Atelectasis; E78.00 Pure hypercholesterolemia, unspecified; E10.9 Type 1 diabetes mellitus without complications; F17.200 Nicotine dependence, unspecified, uncomplicated; Z95.1 Presence of aortocoronary bypass graft
CPT/HCPCS: 36415; 71045; 80053; 81001; 81003; 83690; 83880; 84484; 85025; 87086; 93005; 94640; 96374; 99284

== ENCOUNTER 2018-03-09 09:30 | Outpatient (CLI) | payer OTHER | END 2018-03-09 09:31 | disposition critical access hospital (66) | LOC: EMS 09:30 | PROVIDERS: ATTEND Surgery | DX: M79.89 Other specified soft tissue disorders (principal); R42 Dizziness and giddiness; R06.01 Orthopnea; R25.2 Cramp and spasm; R06.02 Shortness of breath | CPT/HCPCS: A0425; A0429 ==

== ENCOUNTER 2018-03-09 09:42 | Emergency (ER) | payer OTHER ==
[2018-03-09] MEDS ORDERED: SODIUM CHLORIDE 0.9% 1,000 ML IV ONE (09:59)
--- NOTE | 2018-03-09 10:01 | ED Physician Documentation ---
History of Present Illness - Stated complaint Stated Complaint: DIZZY FEET SWELLING - Chief complaint Chief Complaint: Resp - History obtained from History obtained from: Patient - History of Present Illness Timing: Today - Additonal information Additional information: 67-year-old male who is recently been admitted to [facility] in [place] for exacerbation of COPD spent about 3 days in the hospital there and was discharged about 2 weeks ago. He had exacerabation of CHF and was placed on increased dose of lasix on 03-03-18. He states that he was doing better with his breathing and is now able to walk across the room without such a chore but this morning began to feel lightheaded and dizzy and had some numbness to the top of his head. He did take his furosemide this morning and he called the ambulance. Review of Systems Constitutional: reports: Fatigue. denies: Fever, Chills, Myalgias Eyes: denies: Decreased vision Ears: denies: Ear pain Nose: denies: Rhinorrhea / runny nose, Congestion Throat: denies: Sore throat Cardiac: reports: Pedal edema. denies: Chest pain / pressure, Palpitations, Calf pain Respiratory: reports: Dyspnea, Wheezing. denies: Cough GI: denies: Abdominal Pain, Nausea, Vomiting : denies: Dysuria, Frequency Skin: denies: Rash Musculoskeletal: reports: Extremity swelling. denies: Neck pain, Back pain, Extremity pain Neurologic: reports: Numbness. denies: Generalized weakness, Focal weakness PD PAST MEDICAL HISTORY - Past Medical History Cardiovascular: Congestive heart failure, Hypertension, High cholesterol Respiratory: COPD, Emphysema, Shortness of breath Neuro: Head injury Endocrine/Autoimmune: Type 1 diabetes GI: GERD : Other Musculoskeletal: Osteoarthritis - Past Surgical History Past Surgical History: No Cardiovascular: CABG HEENT: Cataracts - Present Medications Home Medications: Ambulatory Orders Medication Instructions Recorded Confirmed RX: Albuterol 2.5 mg INH Q4H PRN #30 neb 01/18/18 03/09/18 Ipratropium/Albuterol [Duoneb] 3 ml INH Q6H #30 neb 02/09/18 03/09/18 RX: Azithromycin [Zithromax] 0 mg PO DAILY #6 tablet 02/09/18 03/09/18 RX: predniSONE [Deltasone] 10 mg PO [id number] #30 tab 02/09/18 03/09/18 Albuterol Sulfate [Proair Hfa 1 - 2 puffs INH Q4H PRN 03/09/18 03/09/18 Inhaler] Budesonide/Formoterol Fumarate 10.2 gm IH BID 03/09/18 03/09/18 [Symbicort 160-4.5 Mcg Inhaler] Cholecalciferol (Vitamin D3) 1,000 unit PO DAILY 03/09/18 03/09/18 [Vitamin D3] RX: Atorvastatin Calcium 40 mg PO QPM 03/09/18 03/09/18 RX: Carvedilol 25 mg PO BID 03/09/18 03/09/18 RX: Losartan Potassium 25 mg PO BID 03/09/18 03/09/18 RX: Omeprazole 40 mg PO BID 03/09/18 03/09/18 Tiotropium [place] [Spiriva] 18 mcg IH DAILY 03/09/18 03/09/18 - Allergies Allergies/Adverse Reactions: Allergies Allergy/AdvReac Type Severity Reaction Status Date / Time buspirone [From BuSpar] Allergy Intermediate Respiratory Verified 03/09/18 11:24 - Social History Does the pt smoke?: Yes Smoking Status: Current every day smoker Does the pt drink ETOH?: Yes Does the pt have substance abuse?: No - Immunizations Immunizations are current?: Yes - POLST Patient has POLST: No PD ED PE NORMAL - Vitals Vital signs reviewed: Yes (hypertensive ) - General General: Alert and oriented X 3, No acute distress, Well developed/nourished - HEENT HEENT: Atraumatic, PERRL, EOMI - Neck Neck: Supple, no meningeal sign, No bony TTP - Cardiac Cardiac: RRR, No murmur - Respiratory Respiratory: No respiratory distress, Other (diminished breath sounds bilaterally) - Abdomen Abdomen: Soft, Non tender - Derm Derm: Normal color, Warm and dry, No rash - Extremities Extremities: No deformity, Other (There is trace edema to both feet ) - Neuro Neuro: Alert and oriented X 3, 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, No motor deficit, No sensory deficit, Normal speech Eye Opening: Spontaneous Motor: Obeys Commands Verbal: Oriented GCS Score: 15 - Psych Psych: Normal mood, Normal affect Results - Vitals Vitals: Vital Signs - 24 hr 03/09/18 03/09/18 03/09/18 09:48 11:17 12:30 Temperature 36.6 C 36.4 C L Heart Rate 86 71 81 Respiratory 18 16 18 Rate Blood Pressure 133/77 H 111/77 103/73 O2 Saturation 94 100 99 Oxygen O2 Source Nasal cannula - Labs Labs: Laboratory Tests 03/09/18 03/09/18 03/09/18 10:00 10:00 10:00 WBC 15.5 H RBC 4.20 L Hgb 13.5 L Hct 38.0 L MCV 90.4 MCH 32.1 H MCHC 35.5 RDW 15.3 H Plt Count 133 MPV 8.1 Neut # (Auto) Not Reportable Lymph # (Auto) Not Reportable [place] # (Auto) Not Reportable Eos # (Auto) Not Reportable Baso # (Auto) Not Reportable Absolute Nucleated RBC Not Reportable Total Counted 100 Band Neuts % (Manual) 9 Abnorm Lymph % (Manual) 0 Metamyelocytes % 2 H Nucleated RBC % Not Reportable Neutrophils # (Manual) 12.6 H Lymphocytes # (Manual) 1.1 L Monocytes # (Manual) 1.4 H Eosinophils # (Manual) 0.2 Basophils # (Manual) 0.0 Differential Comment MANUAL DIFFERENTIAL Manual Slide Review Indicated Platelet Estimate NORMAL (130-450,000) Platelet Morphology NORMAL APPEARANCE RBC Morph Micro Appear NORMAL APPEARANCE Sodium 133 L Potassium 3.9 Chloride 93 L Carbon Dioxide 29 Anion Gap 11.0 BUN 18 Creatinine 0.8 Estimated GFR (MDRD) 96 Glucose 169 H Calcium 8.8 Total Bilirubin 1.1 H AST 28 ALT 45 Alkaline Phosphatase 87 Troponin I < 0.04 B-Natriuretic Peptide Total Protein 5.9 L Albumin 3.3 Globulin 2.6 Albumin/Globulin Ratio 1.3 Lipase 35 Urine Color Urine Clarity Urine pH Ur Specific [place] Urine Protein Urine Glucose (UA) Urine Ketones Urine Occult Blood Urine Nitrite Urine Bilirubin Urine Urobilinogen Ur Leukocyte Esterase Ur Microscopic Review Urine Culture Comments 03/09/18 03/09/18 10:00 10:50 WBC RBC Hgb Hct MCV MCH MCHC RDW Plt Count MPV Neut # (Auto) Lymph # (Auto) [place] # (Auto) Eos # (Auto) Baso # (Auto) Absolute Nucleated RBC Total Counted Band Neuts % (Manual) Abnorm Lymph % (Manual) Metamyelocytes % Nucleated RBC % Neutrophils # (Manual) Lymphocytes # (Manual) Monocytes # (Manual) Eosinophils # (Manual) Basophils # (Manual) Differential Comment Manual Slide Review Platelet Estimate Platelet Morphology RBC Morph Micro Appear Sodium Potassium Chloride Carbon Dioxide Anion Gap BUN Creatinine Estimated GFR (MDRD) Glucose Calcium Total Bilirubin AST ALT Alkaline Phosphatase Troponin I B-Natriuretic Peptide 192 H Total Protein Albumin Globulin Albumin/Globulin Ratio Lipase Urine Color YELLOW Urine Clarity CLEAR Urine pH 6.0 Ur Specific [place] 1.015 Urine Protein NEGATIVE Urine Glucose (UA) 250 H Urine Ketones NEGATIVE Urine Occult Blood NEGATIVE Urine Nitrite NEGATIVE Urine Bilirubin NEGATIVE Urine Urobilinogen 0.2 (NORMAL) Ur Leukocyte Esterase NEGATIVE Ur Microscopic Review NOT INDICATED Urine Culture Comments NOT INDICATED Procedures - IVC sono (time) 0955 Bedside IVC sono: IVC measures (cm) (0.79), IVC collapsed c insp (cm) (complete), Dehydration (est 1-2 liter deficit.) PD MEDICAL DECISION MAKING - ED course Complexity details: reviewed old records, reviewed results, re-evaluated patient, considered differential, d/w patient ED course: 67-year-old male with a history of congestive heart failure and COPD has had a recent hospitalization he has been diuresed and today he appears dry. He is having some symptoms of lightheadedness and dizziness and is administered some intravenous fluid with improvement. I discussed with the patient daily weights and management of his congestive heart failure based on his weights. Departure - Departure Disposition: 01 Home, Self Care Clinical Impression: Dehydration Condition: Stable Instructions: ED Dehydration Follow-Up: Marcie Mg MD [Provider Admit Priv/Credential] - Comments: Today it appears that your lightheadedness and dizziness is related to dehydration. This is due to the increased amount of Lasix you have been taking. My recommendation is to weigh yourself daily and if you find you are several pounds over your dry weight,double up on your Lasix. If you are below your dry weight stop the Lasix. Today I am recomending you decrease your lasix to one per day. Discharge Date/Time: 03/09/18 13:24
[2018-03-09 10:16] LABS: BASOPHILS % (AUTO) 1.1 %; HGB - HEMOGLOBIN 13.5 g/dL (14.0-18.0); LYMPHOCYTES % (AUTO) 8.6 %; MEAN CORPUSCULAR HEMOGLOBIN 32.1 pg (27.0-31.0); MEAN CORPUSCULAR HGB CONC 35.5 g/dL (32.0-36.0); MEAN CORPUSCULAR VOLUME 90.4 fL (80.0-94.0); MEAN PLATELET VOLUME 8.1 fL (7.4-11.4); MONOCYTES % (AUTO) 4.9 %; NEUTROPHILS % (AUTO) 85.4 %; PLT - PLATELET COUNT 133 10^3/uL (130-450); RED CELL DISTRIBUTION WIDTH 15.3 % (12.0-15.0); WHITE BLOOD COUNT 15.5 x10^3/uL (4.8-10.8)
[2018-03-09 10:29] LABS: ALBUMIN 3.3 g/dL (3.2-5.5); ALBUMIN/GLOBULIN RATIO 1.3 (1.0-2.2); BILIRUBIN,TOTAL 1.1 mg/dL (0.2-1.0); CALCIUM 8.8 mg/dL (8.5-10.3); CREATININE 0.8 mg/dL (0.6-1.2); TOTAL PROTEIN 5.9 g/dL (6.7-8.2)
[2018-03-09 10:33] LABS: ABNORMAL LYMPHS % (MANUAL) 0 %
[2018-03-09 10:35] LABS: BAND NEUTROPHILS % (MANUAL) 9 %; EOSINOPHILS # (MANUAL) 0.2 10^3/uL (0-0.7); LYMPHOCYTES # (MANUAL) 1.1 10^3/uL (1.5-3.5); LYMPHOCYTES % (MANUAL) 7 %; METAMYELOCYTES % (MANUAL) 2 %; MONOCYTES # (MANUAL) 1.4 10^3/uL (0.0-1.0); NEUTROPHILS # (MANUAL) 12.6 10^3/uL (1.5-6.6); NEUTROPHILS % (MANUAL) 72 %
[2018-03-09 10:36] LABS: DIFFERENTIAL COMMENT MANUAL DIFFERENTIAL; PLATELET ESTIMATE, MANUAL NORMAL (130-450,000) (NORMAL); PLATELET MORPHOLOGY NORMAL APPEARANCE (NORMAL); RBC MORPHOLOGY (MULTIPLE) NORMAL APPEARANCE (NORMAL)
--- NOTE | 2018-03-09 10:47 | XRAY Report ---
Reason: dyspnea Procedure Date: 03/09/2018 Accession Number: [id number] / [id number] Procedure: XR - Chest 1 View X-Ray CPT Code: 02585 FULL RESULT: EXAM: CHEST RADIOGRAPHY EXAM DATE: 03/09/2018 10:30 AM. CLINICAL HISTORY: Dyspnea. COMPARISON: CHEST 1 VIEW 03/03/2018 4:00 PM. TECHNIQUE: 1 view. FINDINGS: Lungs/Pleura: Hyperinflation. Basilar parenchymal scarring. Bilateral upper lung lucent areas consistent with emphysematous changes. No vascular congestion. No pneumothorax. Mediastinum: Heart size and mediastinal contour are stable. Other: Changes again seen from median sternotomy. IMPRESSION: 1. Hyperinflation. 2. Basilar parenchymal scarring. 3. No acute disease. RADIA
[2018-03-09 11:01] LABS: BILIRUBIN,URINE NEGATIVE (NEGATIVE); GLUCOSE, URINE (UA) 250 mg/dL (NEGATIVE); KETONES,URINE (UA) NEGATIVE (NEGATIVE); LEUKOCYTE ESTERASE, URINE NEGATIVE (NEGATIVE); NITRITE,URINE NEGATIVE (NEGATIVE); OCCULT BLOOD,URINE NEGATIVE (NEGATIVE); PROTEIN,URINE NEGATIVE (NEGATIVE); UROBILINOGEN,URINE 0.2 (NORMAL) E.U./dL (NORMAL)
[2018-03-09 11:02] LABS: CLARITY,URINE CLEAR (CLEAR)
[2018-03-09 12:31] VITALS: BP 103/73
== END 2018-03-09 13:24 | disposition home or self-care (01) ==
LOC: EDUNIT# → ED 09:42
DX: E86.0 Dehydration (principal); R42 Dizziness and giddiness; I11.0 Hypertensive heart disease with heart failure; I50.9 Heart failure, unspecified; J43.9 Emphysema, unspecified; F17.200 Nicotine dependence, unspecified, uncomplicated; E10.9 Type 1 diabetes mellitus without complications
CPT/HCPCS: 36415; 71045; 80053; 81001; 81003; 83690; 83880; 84484; 85025; 87086; 96360; 96361; 99283; 99284

== ENCOUNTER 2018-04-30 12:32 | Outpatient (CLI) | payer OTHER | END 2018-04-30 12:33 | disposition home or self-care (01) | LOC: DI 12:32 | PROVIDERS: ATTEND Internal Medicine | DX: I11.0 Hypertensive heart disease with heart failure (principal); I50.9 Heart failure, unspecified | CPT/HCPCS: 93306 ==

== ENCOUNTER 2018-04-30 21:43 | Outpatient (CLI) | payer OTHER | END 2018-04-30 21:44 | disposition critical access hospital (66) | LOC: EMS 21:43 | PROVIDERS: ATTEND Surgery | DX: R06.02 Shortness of breath (principal); R05 Cough | CPT/HCPCS: A0425; A0427 ==

== ENCOUNTER 2018-04-30 21:54 | Emergency (ER) | payer OTHER ==
[2018-04-30] MEDS ORDERED: methylPREDNISolone SUCCINATE 125 MG/2 ML VIAL IVP STA (22:02)
[2018-04-30] MEDS ORDERED: ALBUTEROL NEB 2.5 MG/3 ML INH STA (22:06)
[2018-04-30] MEDS ORDERED: MORPHINE 2 MG/ML CARPUJECT NEB STA (22:06)
[2018-04-30] MEDS ORDERED: SODIUM CHLORIDE 0.9% 1,000 ML IV ONE (22:07)
--- NOTE | 2018-04-30 22:11 | ED Physician Documentation ---
PD HPI DYSPNEA - Stated complaint Stated Complaint: COPD/SOA - Chief complaint Chief Complaint: Resp - History obtained from History obtained from: Patient - History of Present Illness Timing - onset: Today Timing - onset during: Rest Timing - duration: Hours Timing - details: Abrupt onset, Still present Inciting event(s): URI Improved by: O2, Inhaler/neb Worsened by: Exertion Associated symptoms: Cough, Wheezing Similar symptoms before: Diagnosis (exacerbation of COPD) - Additional information Additional information: 67-year-old male with a history of COPD oxygen dependent at home and a history of congestive heart failure has developed increasing dyspnea over the past 2 days after getting a URI but the rest of his family has. He is increased his prednisone to 20 mg/day from 10 despite this he is continued to be short of breath. He does still get some relief with a nebulizer treatment. He is does not have any swelling to his extremities and he is not currently taking any diuretic. Review of Systems Constitutional: reports: Fatigue. denies: Fever, Chills, Myalgias Eyes: denies: Decreased vision Ears: denies: Ear pain Nose: reports: Rhinorrhea / runny nose, Congestion Throat: reports: Sore throat Cardiac: denies: Chest pain / pressure, Palpitations Respiratory: reports: Dyspnea, Cough, Wheezing GI: denies: Abdominal Pain, Nausea, Vomiting : denies: Dysuria, Frequency Skin: denies: Rash Musculoskeletal: denies: Neck pain, Back pain, Extremity pain, Extremity swelling Neurologic: denies: Generalized weakness, Focal weakness, Numbness PD PAST MEDICAL HISTORY - Past Medical History Cardiovascular: Congestive heart failure, Hypertension, High cholesterol Respiratory: COPD, Emphysema, Shortness of breath Neuro: Head injury Endocrine/Autoimmune: Type 1 diabetes GI: GERD : Other HEENT: None Psych: None Musculoskeletal: Osteoarthritis - Past Surgical History Past Surgical History: No Cardiovascular: CABG HEENT: Cataracts - Present Medications Home Medications: Ambulatory Orders Medication Instructions Recorded Confirmed RX: Albuterol 2.5 mg INH Q4H PRN #30 neb 01/18/18 03/09/18 RX: Azithromycin [Zithromax] 0 mg PO DAILY #6 tablet 02/09/18 03/09/18 Albuterol Sulfate [Proair Hfa 1 - 2 puffs INH Q4H PRN 03/09/18 03/09/18 Inhaler] Budesonide/Formoterol Fumarate 10.2 gm IH BID 03/09/18 03/09/18 [Symbicort 160-4.5 Mcg Inhaler] Cholecalciferol (Vitamin D3) 1,000 unit PO DAILY 03/09/18 03/09/18 [Vitamin D3] RX: Atorvastatin Calcium 40 mg PO QPM 03/09/18 03/09/18 RX: Carvedilol 25 mg PO BID 03/09/18 03/09/18 RX: Losartan Potassium 25 mg PO BID 03/09/18 03/09/18 RX: Omeprazole 40 mg PO BID 03/09/18 03/09/18 Tiotropium [place] [Spiriva] 18 mcg IH DAILY 03/09/18 03/09/18 Alfuzosin HCl [Alfuzosin HCl ER] 10 mg PO DAILY 04/30/18 04/30/18 Isosorbide Mononitrate [Isosorbide 30 mg PO 04/30/18 04/30/18 Mononitrate ER] RX: Furosemide 20 mg PO 04/30/18 04/30/18 metFORMIN [Glucophage] 250 mg PO BID 04/30/18 04/30/18 Amox/Clav 875/125 [Augmentin] 1 each PO Q12H #20 tablet 05/01/18 RX: predniSONE [Deltasone] 10 mg PO ONCE #26 tablet 05/01/18 - Allergies Allergies/Adverse Reactions: Allergies Allergy/AdvReac Type Severity Reaction Status Date / Time buspirone [From BuSpar] Allergy Intermediate Respiratory Verified 04/30/18 22:00 - Social History Does the pt smoke?: Yes Smoking Status: Current every day smoker Does the pt drink ETOH?: Yes Does the pt have substance abuse?: No - Immunizations Immunizations are current?: Yes - POLST Patient has POLST: No PD ED PE NORMAL - Vitals Vital signs reviewed: Yes (tachy, tachypneic and hypertensive ) - General General: Alert and oriented X 3, Well developed/nourished - HEENT HEENT: Atraumatic, PERRL, EOMI, Other (There is mild inflamation in the attic on the left side. ) - Neck Neck: Supple, no meningeal sign, No bony TTP - Cardiac Cardiac: No murmur, Other (tachy ) - Respiratory Respiratory: Other (tachypneic with diminished breath sounds. 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, No motor deficit, No sensory deficit, Normal speech Eye Opening: Spontaneous Motor: Obeys Commands Verbal: Oriented GCS Score: 15 - Psych Psych: Normal mood, Normal affect Results - Vitals Vitals: Vital Signs - 24 hr 04/30/18 04/30/18 04/30/18 21:55 22:12 22:16 Temperature 36.3 C L Heart Rate 105 H 102 H 103 H Respiratory 26 H 27 H 25 H Rate Blood Pressure 121/95 H O2 Saturation 93 04/30/18 04/30/18 05/01/18 22:25 22:26 00:00 Temperature Heart Rate 103 H 104 H 90 Respiratory 26 H 22 18 Rate Blood Pressure 110/71 94/54 L O2 Saturation 99 96 05/01/18 05/01/18 05/01/18 01:10 02:06 02:48 Temperature Heart Rate 94 97 80 Respiratory 16 22 20 Rate Blood Pressure 92/64 97/62 88/59 L O2 Saturation 95 96 96 05/01/18 05/01/18 05/01/18 02:51 03:03 03:16 Temperature 36.2 C L Heart Rate 86 79 80 Respiratory 24 23 23 Rate Blood Pressure 101/64 101/64 O2 Saturation 97 94 05/01/18 04:20 Temperature Heart Rate 84 Respiratory 20 Rate Blood Pressure 96/51 L O2 Saturation 96 Oxygen O2 Source Nasal cannula Oxygen Flow Rate 2 - Labs Labs: Laboratory Tests 04/30/18 04/30/18 04/30/18 22:10 22:10 22:10 WBC 8.1 RBC 4.02 L Hgb 12.8 L Hct 37.9 L MCV 94.2 H MCH 31.8 H MCHC 33.8 RDW 15.3 H Plt Count 181 MPV 7.4 Neut # (Auto) 6.0 Lymph # (Auto) 1.4 L [place] # (Auto) 0.6 Eos # (Auto) 0.0 Baso # (Auto) 0.1 Absolute Nucleated RBC 0.01 Nucleated RBC % 0.1 Sodium 135 Potassium 3.7 Chloride 100 L Carbon Dioxide 25 Anion Gap 10.0 BUN 11 Creatinine 0.8 Estimated GFR (MDRD) 96 Glucose 126 H Calcium 8.5 Total Bilirubin 1.2 H AST 26 ALT 24 Alkaline Phosphatase 103 Troponin I < 0.04 B-Natriuretic Peptide Total Protein 5.9 L Albumin 3.1 L Globulin 2.8 Albumin/Globulin Ratio 1.1 Lipase 28 04/30/18 22:10 WBC RBC Hgb Hct MCV MCH MCHC RDW Plt Count MPV Neut # (Auto) Lymph # (Auto) [place] # (Auto) Eos # (Auto) Baso # (Auto) Absolute Nucleated RBC Nucleated RBC % Sodium Potassium Chloride Carbon Dioxide Anion Gap BUN Creatinine Estimated GFR (MDRD) Glucose Calcium Total Bilirubin AST ALT Alkaline Phosphatase Troponin I B-Natriuretic Peptide 154 H Total Protein Albumin Globulin Albumin/Globulin Ratio Lipase - Rads (name of study) chest Radiology: Prelim report reviewed (Impression: COPD without acute process seen in the chest.), EMP read indepedently, See rad report Procedures - IVC sono (time) 1105 Bedside IVC sono: IVC measures (cm) (tiny vessle mostly collapsed) PD MEDICAL DECISION MAKING - ED course Complexity details: reviewed old records, reviewed results, re-evaluated patient, considered differential, d/w patient ED course: 67-year-old male with a history of oxygen dependent COPD has developed increased shortness of breath and despite using his nebulizer is unable to get adequate relief. Here in the emergency department he is again found to be volume depleted and today he has left otitis on exam. He has diminished breath sounds to his lungs and he does improve with use of a DuoNeb treatment and 125 mg of Solu-Medrol. He has improvement in his air movement and he appears to have an exacerbation of COPD and left otitis on exam. He is administered Rocephin 1 g intravenously and we will place him on a prednisone taper as well as outpatient antibiotic. Departure - Departure Disposition: 01 Home, Self Care Clinical Impression: COPD exacerbation, Otitis media, Dehydration Condition: Stable Instructions: ED COPD Flare, ED Otitis Media Acute Adult Follow-Up: Marcie Mg MD [Primary Care Provider] - Prescriptions: Amox/Clav 875/125 [Augmentin] 1 each PO Q12H #20 tablet RX: predniSONE [Deltasone] 10 mg PO ONCE #26 tablet Discharge Date/Time: 05/01/18 04:42
[2018-04-30 22:22] LABS: BASOPHILS # (AUTO) 0.1 10^3/uL (0.0-0.1); BASOPHILS % (AUTO) 0.9 %; EOSINOPHILS % (AUTO) 0.2 %; HGB - HEMOGLOBIN 12.8 g/dL (14.0-18.0); LYMPHOCYTES # (AUTO) 1.4 10^3/uL (1.5-3.5); LYMPHOCYTES % (AUTO) 16.9 %; MEAN CORPUSCULAR HEMOGLOBIN 31.8 pg (27.0-31.0); MEAN CORPUSCULAR HGB CONC 33.8 g/dL (32.0-36.0); MEAN CORPUSCULAR VOLUME 94.2 fL (80.0-94.0); MEAN PLATELET VOLUME 7.4 fL (7.4-11.4); MONOCYTES # (AUTO) 0.6 10^3/uL (0.0-1.0); MONOCYTES % (AUTO) 7.2 %; NEUTROPHILS % (AUTO) 74.8 %; PLT - PLATELET COUNT 181 10^3/uL (130-450); RED BLOOD COUNT 4.02 10^6/uL (4.70-6.10); RED CELL DISTRIBUTION WIDTH 15.3 % (12.0-15.0); WHITE BLOOD COUNT 8.1 x10^3/uL (4.8-10.8)
[2018-04-30 22:28] LABS: ALBUMIN 3.1 g/dL (3.2-5.5); ALBUMIN/GLOBULIN RATIO 1.1 (1.0-2.2); BILIRUBIN,TOTAL 1.2 mg/dL (0.2-1.0); CALCIUM 8.5 mg/dL (8.5-10.3); CREATININE 0.8 mg/dL (0.6-1.2); TOTAL PROTEIN 5.9 g/dL (6.7-8.2)
--- NOTE | 2018-04-30 22:45 | XRAY Report ---
Reason: dyspnea Procedure Date: 04/30/2018 Accession Number: [id number] / [id number] Procedure: XR - Chest 1 View X-Ray CPT Code: 84604 FULL RESULT: EXAM: CHEST RADIOGRAPHY EXAM DATE: 04/30/2018 10:23 PM. CLINICAL HISTORY: Dyspnea. COMPARISON: CHEST 1 VIEW 03/09/2018 10:18 AM. TECHNIQUE: 1 view. FINDINGS: Lungs/Pleura: Large volumes with mild scarring again noted. No focal pneumonia or overt edema. No pneumothorax or effusion. Mediastinum: Within exam limitations, cardiomediastinal contour is normal. Other: Post median sternotomy and CABG. IMPRESSION: COPD without acute process seen in the chest. RADIA
[2018-05-01] MEDS ORDERED: IPRATROPIUM/ALBUTEROL 3 ML NEB INH STA (02:27)
[2018-05-01] MEDS ORDERED: cefTRIAXone 1 GM in SODIUM CHLORIDE 0.9% MINIBAG 100 ML IV STA (03:30)
[2018-05-01 04:20] VITALS: BP 96/51
== END 2018-05-01 04:42 | disposition home or self-care (01) ==
LOC: EDUNIT# → ED 21:54
DX: J44.1 Chronic obstructive pulmonary disease with (acute) exacerbation (principal); H66.92 Otitis media, unspecified, left ear; E86.0 Dehydration; I11.0 Hypertensive heart disease with heart failure; I50.9 Heart failure, unspecified; E10.8 Type 1 diabetes mellitus with unspecified complications; F17.200 Nicotine dependence, unspecified, uncomplicated; Z79.84 Long term (current) use of oral hypoglycemic drugs; Z99.81 Dependence on supplemental oxygen
CPT/HCPCS: 36415; 71045; 80053; 83690; 83880; 84484; 85025; 94640; 96361; 96365; 96375; 99284

== ENCOUNTER 2018-05-02 11:49 | Outpatient (CLI) | payer OTHER | END 2018-05-02 11:50 | disposition critical access hospital (66) | LOC: EMS 11:49 | PROVIDERS: ATTEND Surgery | DX: R06.00 Dyspnea, unspecified (principal); R68.83 Chills (without fever); R51 Headache | CPT/HCPCS: A0425; A0427 ==

== ENCOUNTER 2018-05-02 11:55 | Inpatient (IN) | payer OTHER ==
[2018-05-02] MEDS ORDERED: IPRATROPIUM/ALBUTEROL 3 ML NEB INH STA ×3 (12:01)
[2018-05-02] MEDS ORDERED: IPRATROPIUM 0.2 MG/ML NEB INH STA (12:05)
[2018-05-02] MEDS ORDERED: LEVALBUTEROL 1.25 MG/3 ML NEB INH STA (12:05)
[2018-05-02 12:17] LABS: BASOPHILS # (AUTO) 0.2 10^3/uL (0.0-0.1); BASOPHILS % (AUTO) 0.9 %; HGB - HEMOGLOBIN 13.3 g/dL (14.0-18.0); LYMPHOCYTES # (AUTO) 2.8 10^3/uL (1.5-3.5); LYMPHOCYTES % (AUTO) 13.2 %; MEAN CORPUSCULAR HEMOGLOBIN 31.4 pg (27.0-31.0); MEAN CORPUSCULAR HGB CONC 32.4 g/dL (32.0-36.0); MEAN CORPUSCULAR VOLUME 96.8 fL (80.0-94.0); MEAN PLATELET VOLUME 7.6 fL (7.4-11.4); MONOCYTES # (AUTO) 1.3 10^3/uL (0.0-1.0); NEUTROPHILS # (AUTO) 17.1 10^3/uL (1.5-6.6); NEUTROPHILS % (AUTO) 79.9 %; PLT - PLATELET COUNT 262 10^3/uL (130-450); RED BLOOD COUNT 4.23 10^6/uL (4.70-6.10); RED CELL DISTRIBUTION WIDTH 15.3 % (12.0-15.0); WHITE BLOOD COUNT 21.4 x10^3/uL (4.8-10.8)
[2018-05-02 12:26] LABS: CALCIUM 8.4 mg/dL (8.5-10.3); CREATININE 0.8 mg/dL (0.6-1.2)
[2018-05-02 12:36] LABS: PLATELET ESTIMATE, MANUAL NORMAL (130-450,000) (NORMAL); PLATELET MORPHOLOGY NORMAL APPEARANCE (NORMAL); RBC MORPHOLOGY (MULTIPLE) 1+ POIKILOCYTOSIS (NORMAL)
[2018-05-02] MEDS ORDERED: fentaNYL 100 MCG/2 ML VIAL IVP STA (12:45)
[2018-05-02] MEDS ORDERED: MAGNESIUM SULFATE 2 GRAM 2 GM/50 ML BAG IV ONE (12:46)
--- NOTE | 2018-05-02 12:56 | XRAY Report ---
Reason: chest pain Procedure Date: 05/02/2018 Accession Number: [id number] / [id number] Procedure: XR - Chest 1 View X-Ray CPT Code: 24078 FULL RESULT: EXAM: CHEST RADIOGRAPHY EXAM DATE: 05/02/2018 12:30 PM. CLINICAL HISTORY: Chest pain. COMPARISON: 04/30/2018. TECHNIQUE: 1 view. FINDINGS: Lungs/Pleura: New interstitial abnormality is seen with lower lobe predominance, possibly right greater than left. There is a trace left pleural effusion. Mediastinum: There is mild cardiomegaly. Changes of prior sternotomy again seen. Other: None. IMPRESSION: 1. New interstitial abnormality with lower lobe predominance, possibly right greater than left. Findings likely represent edema. Atypical infection is less likely. 2. Trace left pleural effusion. 3. Mild cardiomegaly with persistent changes of prior sternotomy. RADIA
--- NOTE | 2018-05-02 14:09 | ED Physician Documentation ---
History of Present Illness - Stated complaint Stated Complaint: SOA - Chief complaint Chief Complaint: Resp - History obtained from History obtained from: Patient, Family - Additonal information Additional information: Patient is a 67-year-old male with history of COPD, CHF, and is oxygen dependent at approximately 3 L by nasal cannula at home. Patient was seen 2 days ago in this ED for COPD exacerbation and received DuoNeb, steroids, and Rocephin and was able to be discharged home. Family does note that many family members have been experiencing a viral-like or cold-like symptoms. Patient arrived by ear lids and had received DuoNeb and Solu-Medrol in route and was started on Atrovent and Xopenex given increased work of breathing. Patient reported cough and increased work of breathing, but denied chest pain, abdominal pain, vomiting, urinary or stool changes, fever. Patient reports he is compliant with all medications except for missed losartan dose earlier today.No particular Improving or worsening therapies noted. Review of Systems Ten Systems: 10 systems reviewed and negative Constitutional: denies: Fever Cardiac: denies: Chest pain / pressure Respiratory: reports: Dyspnea, Cough GI: denies: Abdominal Pain : denies: Dysuria PD PAST MEDICAL HISTORY - Past Medical History Cardiovascular: Congestive heart failure, Hypertension, High cholesterol Respiratory: COPD, Emphysema, Shortness of breath Neuro: Head injury Endocrine/Autoimmune: Type 1 diabetes GI: GERD : Other HEENT: None Psych: None Musculoskeletal: Osteoarthritis - Past Surgical History Past Surgical History: Yes Cardiovascular: CABG HEENT: Cataracts - Present Medications Home Medications: Ambulatory Orders Medication Instructions Recorded Confirmed RX: Albuterol 2.5 mg INH Q4H PRN #30 neb 01/18/18 05/02/18 Albuterol Sulfate [Proair Hfa 2 puffs INH Q4H PRN 03/09/18 05/02/18 Inhaler] Budesonide/Formoterol Fumarate 1 puffs INH BID 03/09/18 05/02/18 [Symbicort 160-4.5 Mcg Inhaler] Cholecalciferol (Vitamin D3) 1,000 unit PO DAILY 03/09/18 05/02/18 [Vitamin D3] RX: Atorvastatin Calcium 40 mg PO QPM 03/09/18 05/02/18 RX: Carvedilol 25 mg PO BID 03/09/18 05/02/18 RX: Losartan Potassium 25 mg PO BID 03/09/18 05/02/18 RX: Omeprazole 40 mg PO BID 03/09/18 05/02/18 Tiotropium [place] [Spiriva] 1 puffs INH DAILY 03/09/18 05/02/18 Alfuzosin HCl [Alfuzosin HCl ER] 10 mg PO DAILY 04/30/18 05/02/18 metFORMIN [Glucophage] 250 mg PO QDBREAKFAST 04/30/18 05/02/18 RX: Azithromycin [Zithromax] 250 mg PO DAILY 05/02/18 05/02/18 RX: Torsemide 20 mg PO DAILY 05/02/18 05/02/18 RX: predniSONE [Deltasone] 10 mg PO DAILY 05/02/18 05/02/18 - Allergies Allergies/Adverse Reactions: Allergies Allergy/AdvReac Type Severity Reaction Status Date / Time buspirone [From BuSpar] Allergy Intermediate Respiratory Verified 05/02/18 12:00 - Social History Does the pt smoke?: Yes Smoking Status: Current every day smoker Does the pt drink ETOH?: Yes Does the pt have substance abuse?: No - Immunizations Immunizations are current?: Yes - POLST Patient has POLST: No PD ED PE NORMAL - General General: Other (Arrives tachypneic with accessory muscle use present, short sentences of 1-2 words) - HEENT HEENT: Moist mucous membranes, Pharynx benign - Neck Neck: Supple, no meningeal sign, No JVD - Cardiac Cardiac: No murmur, Other (Tachycardic) - Respiratory Respiratory: Other (Acute distress, mild expiratory wheezing throughout, diminished lung sounds at bases bilaterally) - Abdomen Abdomen: Normal bowel sounds, Soft, Non tender, Non distended - Derm Derm: Normal color, Warm and dry, No rash - Extremities Extremities: No edema Results - Vitals Vitals: Vital Signs - 24 hr 05/02/18 05/02/18 05/02/18 11:55 12:00 12:15 Temperature 36.5 C Heart Rate 120 H 122 H 125 H Respiratory 40 H 32 H 44 H Rate Blood Pressure 142/88 H 123/83 H O2 Saturation 98 100 05/02/18 05/02/18 05/02/18 12:30 13:00 13:30 Temperature Heart Rate 126 H 127 H 124 H Respiratory 30 H 37 H 30 H Rate Blood Pressure 134/104 H 133/105 H 122/83 H O2 Saturation 10 L 97 98 05/02/18 05/02/18 05/02/18 13:56 14:00 14:30 Temperature 37.2 C Heart Rate 122 H 119 H Respiratory 34 H 37 H Rate Blood Pressure 115/88 H 119/88 H O2 Saturation 97 95 Oxygen O2 Source Non-rebreather mask Oxygen Flow Rate 3 - EKG (time done) 1403 Rate: Tachy Rhythm: Sinus tachycardia Ischemia: Normal ST segments - Labs Labs: Laboratory Tests 05/02/18 05/02/18 05/02/18 12:08 12:10 12:10 WBC 21.4 H RBC 4.23 L Hgb 13.3 L Hct 41.0 L MCV 96.8 H MCH 31.4 H MCHC 32.4 RDW 15.3 H Plt Count 262 MPV 7.6 Neut # (Auto) 17.1 H Lymph # (Auto) 2.8 [place] # (Auto) 1.3 H Eos # (Auto) 0.0 Baso # (Auto) 0.2 H Absolute Nucleated RBC 0.00 Nucleated RBC % 0.0 Manual Slide Review Indicated Platelet Estimate NORMAL (130-450,000) Platelet Morphology NORMAL APPEARANCE RBC Morph Micro Appear 1+ POIKILOCYTOSIS Sodium 136 Potassium 4.1 Chloride 99 L Carbon Dioxide 26 Anion Gap 11.0 BUN 12 Creatinine 0.8 Estimated GFR (MDRD) 96 Glucose 136 H Calcium 8.4 L Troponin I Influenza A (Rapid) POSITIVE H Influenza B (Rapid) Negative 05/02/18 12:10 WBC RBC Hgb Hct MCV MCH MCHC RDW Plt Count MPV Neut # (Auto) Lymph # (Auto) [place] # (Auto) Eos # (Auto) Baso # (Auto) Absolute Nucleated RBC Nucleated RBC % Manual Slide Review Platelet Estimate Platelet Morphology RBC Morph Micro Appear Sodium Potassium Chloride Carbon Dioxide Anion Gap BUN Creatinine Estimated GFR (MDRD) Glucose Calcium Troponin I < 0.04 Influenza A (Rapid) Influenza B (Rapid) PD MEDICAL DECISION MAKING - ED course Complexity details: reviewed old records, re-evaluated patient, considered differential, d/w patient, d/w family, d/w presales consultant ED course: Patient presented today with likely COPD exacerbation, but also considered viral illness given recent sick contacts at symptoms, as well as cardiac processes like CHF exacerbation, unstable angina, ACS, myocardial infarction. Patient arrives tachycardic, but feel this is likely due to his anxiety related to difficulty breathing and medications given. Do not find evidence of fluid overload on exam, but obtain chest x-ray to further evaluate. Chest x-ray did not show obvious pneumonia or fluid overload. Do not feel patient is likely experiencing a CHF exacerbation. Do not feel nitroglycerin or other diuretics are appropriate at this time. Patient currently denies chest pain and have a lower suspicion for acute coronary syndrome and others, but obtain troponin and EKG. Initial EKGs were of poor quality given patient movement. Repeat EKG showed sinus tachycardia. Troponin negative. Do not feel patient requires further cardiac workup or intervention. Upon arrival, patient repositioned repeatedly given multiple medications including Atrovent, Xopenex, and fentanyl by patient request for additional pain control.ABG attempted but could not be obtained. Lab work returned with significant leukocytosis and patient positive for flu A. Had multiple re-evaluations and discussions with both patient and his family. Patient's family reports that he is DNR/DNI it provides appropriate paperwork for such. Patient was agreeable to noninvasive ventilation which was in agreement with his directives, but when attempted, will not tolerate and ref used to continue.Do have concern that patient's motivation is lacking and family agrees that patient is becoming tired of being ill and multiple hospitalizations.Further motivation to positionally, patient able to find significant improvements in work of breathing. During entire ED stay, patient was saturating well into the high 90s.Spoke with hospitalist who agrees to admit for further evaluation and workup. Further treatments, including the possibility of Tamiflu deferred to hospitalist. Patient and family agreeable to this plan. Departure - Departure Disposition: 66 [facility] DC/Xfer
[2018-05-02] MEDS ORDERED: ONDANSETRON 4 MG/2 ML VIAL IVP PRN (14:33)
[2018-05-02] MEDS ORDERED: ACETAMINOPHEN 325 MG TABLET PO PRN (14:33)
[2018-05-02] MEDS ORDERED: LEVALBUTEROL 1.25 MG/3 ML NEB INH SCH (15:00)
[2018-05-02] MEDS: IPRATROPIUM 0.2 MG/ML NEB INH SCH ×2 (15:03→19:37)
[2018-05-02] MEDS ORDERED: MORPHINE 2 MG/ML CARPUJECT IVP PRN (16:06)
[2018-05-02] MEDS ORDERED: MORPHINE 2 MG/ML SYRINGE ONE (16:12)
[2018-05-02] MEDS: CEFEPIME 2 GM in SODIUM CHLORIDE 0.9% MINIBAG 100 ML IV SCH ×2 (16:13→23:00)
[2018-05-02] MEDS: methylPREDNISolone SUCCINATE 125 MG/2 ML VIAL IVP SCH ×2 (16:13→20:27)
[2018-05-02] MEDS: SODIUM CHLORIDE FLUSH 0.9% 10 ML SYRINGE IVP SCH ×2 (16:13→20:30)
[2018-05-02 16:45] LABS: ABG BASE EXCESS -3.2 mmol/L (-2.0-3.0); ABG HCO3 27.3 mmol/L (22.0-26.0); ABG OXYGEN SATURATION 95 % (94-98); ABG PCO2 76 mmHg (34-45); ABG PH 7.17 (7.35-7.45); ABG PO2 93 mmHg (80-100); ABG TCO2 29.6 MMOL/L (21.0-29.0); ALLEN TEST POSITIVE
[2018-05-02] MEDS ORDERED: methylPREDNISolone SUCCINATE 125 MG/2 ML VIAL IVP SCH (18:00)
[2018-05-02] MEDS: MORPHINE 2 MG/ML SYRINGE IVP PRN (18:10)
[2018-05-02] MEDS: LEVALBUTEROL 1.25 MG/3 ML NEB INH SCH (19:37)
[2018-05-02 19:48] LABS: ABG BASE EXCESS -3.5 mmol/L (-2.0-3.0); ABG HCO3 22.3 mmol/L (22.0-26.0); ABG OXYGEN SATURATION 96 % (94-98); ABG PCO2 43 mmHg (34-45); ABG PH 7.33 (7.35-7.45); ABG PO2 86 mmHg (80-100); ABG TCO2 23.6 MMOL/L (21.0-29.0); ALLEN TEST POSITIVE
--- NOTE | 2018-05-02 20:22 | HISTORY & PHYSICAL EXAMINATION ---
DATE OF SERVICE: 05/02/2018 Physician: Urmila Aguero MD HISTORY OF PRESENT ILLNESS: This is a 67-year-old white male with history of COPD, oxygen dependent at 3 liters nasal cannula, CHF, remote coronary artery bypass surgery. He also has a history of diabetes, GERD and hypertension. The patient has been to this emergency room now 9 times over the past 3-1/2 months with respiratory complaints. The last visit was 2 days ago to this ER, where he presented along with other family members, complaining of upper respiratory symptoms that were viral in nature. He was discharged with Zithromax, steroids, inhalers and got a Rocephin dose. Over these 2 days, he has gotten worse and presented again today with shortness of breath, received a DuoNeb treatment en route in the ambulance. He refused a BiPAP initially when there was some mention of this. The daughter noticed that after being in the emergency room for several hours, he became more obtunded with a very high respiratory rate. He was to be admitted to med/surg but a blood gas was done showing extreme acidosis with CO2 retention, and he is being admitted to the ICU for BiPAP treatment. His workup in the emergency room also showed a left lower lobe infiltrate on CXR, influenza A positive, white blood count elevated at 21 and tachycardic at a rate of 120, as well as tachypneic at rates in the 40s. PAST MEDICAL HISTORY: COPD, end-stage, on oxygen 3 liters nasal cannula, history of CHF and bypass surgery, diabetes, hypertension, GERD, cataracts. ALLERGIES: BUSPIRONE. MEDICATIONS 1. Albuterol inhaler q.4 hours p.r.n. 2. ProAir inhaler q.4 hours p.r.n. 3. Alfuzosin 10 mg daily. 4. Lipitor 40 mg every night. 5. Zithromax 250 mg daily. 6. Symbicort inhaler b.i.d. 7. Carvedilol 25 mg b.i.d. 8. Vitamin D3 daily. 9. Losartan 25 mg b.i.d. 10. Metformin 250 mg daily in the morning. 11. Omeprazole 40 mg b.i.d. 12. Prednisone 10 mg daily. 13. Spiriva 1 puff inhaled daily. 14. Torsemide 20 mg daily. FAMILY HISTORY: No inherited diseases. SOCIAL HISTORY: Patient is an ex-smoker, has no alcohol history or drug use history. REVIEW OF SYSTEMS: There has been chills and fever at home. The daughter reports that the patient has stated that he is giving up, does not want aggressive management, but he has not been seen by either Palliative Care or Hospice. A comprehensive review of systems was performed and the pertinent positives are listed, the rest are negative. PHYSICAL EXAMINATION GENERAL: Elderly white male. He is on BiPAP, obtunded, but opens his eyes to his name and is moving all extremities spontaneously. This is improved from his obtunded state the last several hours in the emergency room. VITAL SIGNS: Blood pressure 108/66, pulse of 117 in sinus rhythm, afebrile. Saturation is 96% on BiPAP at 50% setting. Respiratory rate is still in the 40 range. HEENT: Reveals dry oral mucosa. He is mouth breathing and on the BiPAP mask. NECK: Has positive JVD in a vertical position. CHEST: Increased AP diameter, poor air movement diffusely. No rales or rhonchi heard. HEART: Sounds are very distant. No murmurs. ABDOMEN: Is distended. He has mild tympany (probably swallowing air from the BiPAP mask). No organomegaly. Decreased bowel sounds. No guarding or rebound. EXTREMITIES: Without clubbing, cyanosis or edema. NEUROLOGIC: Obtundation, but moving all extremities spontaneously and responds to his name. LABORATORY DATA: Sodium 136, potassium 4.1, BUN 12, creatinine 0.8. Troponin not detectable. White blood count 21.4, with a left shift, hemoglobin 13 with MCV of 97 and RDW 15, platelet count 262,000. No INR was done. Serology shows positive influenza A. Blood gas showed pH of 7.1, pCO2 of 75, pO2 of 93. Chest x-ray: Hazy left lower lobe infiltrate. EKG: Sinus tachycardia at a rate of 121. Poor R-wave progression. Inferolateral T-wave flattening. DIAGNOSES 1. Sepsis by virtue of elevated WBC and respiratory acidosis, tachycardic heart rate and rapid respiratory rate, with pneumonia on CXR. 2. Chronic obstructive pulmonary disease with acute exacerbation. 3. Community-acquired pneumonia. 4. Altered mental status, very likely from CO2 narcosis. 5. Influenza A positive; however, his symptoms began over 72 hours ago, therefore not a Tamiflu candidate. 6. Diabetes, on oral agents. 7. History of coronary disease and coronary bypass surgery. PLAN 1. Admit the patient to the ICU on telemetry. 2. Treat with BiPAP mask, recheck the blood gas to determine proper settings. Begin nebs and high dose iv steroids. 3. Begin IV antibiotics after blood cultures drawn. Check a lactic acid level, follow if elevated. 4. Obtain sputum culture if he makes it. 5. N.p.o. status because of his obtundation, plus need for BiPAP mask management. Begin iv hydration. Routine fingerstick blood glucose checks and sliding scale Insulin in an npo patient. 6. Medications will be changed to IV based from his home medications, such as the beta dennis for heart rate control. 7. The daughter (his medical POA) has stated that if this management with BiPAP is not successful in turning him around, no intubation will be planned as he is a DNR and DNI, and he would then be transitioned to comfort measures, by the family's request. CODE STATUS: DO NOT RESUSCITATE. DEEP VENOUS THROMBOSIS PROPHYLAXIS: Pharmacotherapy. ATTESTATION: The patient is expected to be discharged or transferred to another facility within 96 hours: Yes. cc: Primary Care Maye TD: 05/02/2018 19:08 EZ
[2018-05-02] MEDS: FAMOTIDINE 20 MG TABLET PO SCH (20:27)
[2018-05-02] MEDS: MIN OIL/DIMETHICON/COCONUT OIL 92 GM TUBE TOP PRN (22:09)
[2018-05-03] MEDS: methylPREDNISolone SUCCINATE 125 MG/2 ML VIAL IVP SCH ×4 (02:50→20:18)
[2018-05-03] MEDS: SODIUM CHLORIDE FLUSH 0.9% 10 ML SYRINGE IVP PRN (02:50)
[2018-05-03 07:12] LABS: BASOPHILS % (AUTO) 0.4 %; HGB - HEMOGLOBIN 11.8 g/dL (14.0-18.0); LYMPHOCYTES # (AUTO) 1.1 10^3/uL (1.5-3.5); LYMPHOCYTES % (AUTO) 9.9 %; MEAN CORPUSCULAR HEMOGLOBIN 31.2 pg (27.0-31.0); MEAN CORPUSCULAR HGB CONC 32.8 g/dL (32.0-36.0); MEAN CORPUSCULAR VOLUME 95.1 fL (80.0-94.0); MEAN PLATELET VOLUME 7.6 fL (7.4-11.4); MONOCYTES # (AUTO) 0.4 10^3/uL (0.0-1.0); MONOCYTES % (AUTO) 3.9 %; NEUTROPHILS # (AUTO) 9.6 10^3/uL (1.5-6.6); NEUTROPHILS % (AUTO) 85.8 %; PLT - PLATELET COUNT 162 10^3/uL (130-450); RED CELL DISTRIBUTION WIDTH 15.3 % (12.0-15.0); WHITE BLOOD COUNT 11.2 x10^3/uL (4.8-10.8)
[2018-05-03 07:17] LABS: CALCIUM 7.7 mg/dL (8.5-10.3); CREATININE 0.9 mg/dL (0.6-1.2)
[2018-05-03] MEDS: CEFEPIME 2 GM in SODIUM CHLORIDE 0.9% MINIBAG 100 ML IV SCH ×3 (07:25→22:10)
[2018-05-03] MEDS: IPRATROPIUM 0.2 MG/ML NEB INH SCH ×4 (07:45→19:29)
[2018-05-03] MEDS: LEVALBUTEROL 1.25 MG/3 ML NEB INH SCH ×4 (07:45→19:29)
--- NOTE | 2018-05-03 08:25 | PROVIDER PROGRESS NOTE ---
Assessment/Plan - Problem List (1) CO2 narcosis Assessment/Plan: The BIPAP was successful in ventilating off the CO2 and he awoke. Will give trial off BIPAP, on O2 per n.c. Remain in ICU today, in case he fails and needs BIPAP again. (2) COPD exacerbation Assessment/Plan: Continue nebs, iv steroids, will order Mucinex if there is sputum. Treat the underlying pneumonia. (3) CAP (community acquired pneumonia) Assessment/Plan: Patient on empiric iv Cefipime. Awaiting culture results. (4) Influenza A Assessment/Plan: The patient was out of the window to start Tamiflu. Supportive symptom management planned. (5) Hx of coronary artery disease Assessment/Plan: Resume his statin and Carvedilol po. His home med list does not have daily aspirin, which he should be on. Will start daily aspirin. - Current Meds Current Meds: Current Medications Generic Name Dose Route Start Last Admin Trade Name Freq PRN Reason Stop Dose Admin Famotidine 20 mg 05/02/18 21:00 05/02/18 20:27 Pepcid PO 20 mg BID PEE Administration Cefepime HCl 2 gm/ Sodium 100 mls @ 200 mls/hr 05/02/18 15:00 05/03/18 07:25 Chloride IV 200 mls/hr Q8H PEE Administration Ipratropium [place] 0.5 mg 05/02/18 15:00 05/02/18 19:37 Atrovent INH 0.5 mg RTQ4H PEE Administration Levalbuterol HCl 1.25 mg 05/02/18 15:07 05/02/18 19:37 Xopenex INH 1.25 mg RTQ4H PEE Administration Methylprednisolone Sodium Succinate 60 mg 05/02/18 15:00 05/03/18 02:50 Solu-Medrol (125mg Vial) IVP 60 mg Q6H PEE Administration Mineral Oil 1 applic 05/02/18 21:46 05/02/18 22:09 Cavilon TOP 1 applic PRN PRN Administration Skin Care Morphine Sulfate 2 mg 05/02/18 16:38 05/02/18 18:10 Morphine IVP 2 mg Q2HR PRN Administration PAIN Sodium Chloride 10 ml 05/02/18 14:33 05/03/18 02:50 Normal Saline Flush 0.9% IVP 10 ml PRN PRN Administration NEEDED PER PROVIDER ORDERS Sodium Chloride 10 ml 05/02/18 17:00 05/02/18 20:30 Normal Saline Flush 0.9% IVP 10 ml 0100,0900,1700 PEE Administration - Lab Result Fish Bone Diagrams: 05/03/18 06:57 05/03/18 06:57 - Additional Planning My Orders: My Active Orders 05/02/18 19:05 CULTURE, BLOOD #1 [RM] Stat 05/02/18 19:10 CULTURE, BLOOD #2 [RM] Stat 05/02/18 19:52 Nebulizer/MDI Tx. [RC] .qid 05/03/18 09:00 Alfuzosin HCl [Alfuzosin HCl ER] 10 mg PO DAILY Carvedilol [Carvedilol] 25 mg PO BID Cholecalciferol (Vitamin D3) [Vitamin D3] 1,000 unit PO DAILY Losartan Potassium [Losartan Potassium] 25 mg PO BID 05/03/18 21:00 Atorvastatin [Lipitor] 40 mg PO QPM Subjective - Subjective Patient Reports: Feeling Better, Resting Comfortably Nursing Reports: Other (Awake and communicating with family, tolerated several hours off BIPAP and on oxygen by nasal cannula) Objective Vital Signs: Vital Signs - 24 hr 05/02/18 05/02/18 05/02/18 11:55 12:00 12:15 Temperature 36.5 C Heart Rate 120 H 122 H 125 H Heart Rate [ Monitoring electrodes] Respiratory 40 H 32 H 44 H Rate Blood Pressure 142/88 H 123/83 H Blood Pressure [Left Brachial artery] Blood Pressure [Right Brachial artery] O2 Saturation 98 100 05/02/18 05/02/18 05/02/18 12:30 13:00 13:30 Temperature Heart Rate 126 H 127 H 124 H Heart Rate [ Monitoring electrodes] Respiratory 30 H 37 H 30 H Rate Blood Pressure 134/104 H 133/105 H 122/83 H Blood Pressure [Left Brachial artery] Blood Pressure [Right Brachial artery] O2 Saturation 10 L 97 98 05/02/18 05/02/18 05/02/18 13:56 14:00 14:30 Temperature 37.2 C Heart Rate 122 H 119 H Heart Rate [ Monitoring electrodes] Respiratory 34 H 37 H Rate Blood Pressure 115/88 H 119/88 H Blood Pressure [Left Brachial artery] Blood Pressure [Right Brachial artery] O2 Saturation 97 95 05/02/18 05/02/18 05/02/18 15:00 15:30 15:58 Temperature 36.4 C L Heart Rate 118 H 118 H Heart Rate [ 119 H Monitoring electrodes] Respiratory 42 H 35 H 48 H Rate Blood Pressure 113/64 113/64 Blood Pressure [Left Brachial artery] Blood Pressure 109/78 [Right Brachial artery] O2 Saturation 95 94 93 05/02/18 05/02/18 05/02/18 17:00 17:15 17:25 Temperature Heart Rate 118 H Heart Rate [ 117 H Monitoring electrodes] Respiratory 44 H 46 H Rate Blood Pressure Blood Pressure 108/66 [Left Brachial artery] Blood Pressure [Right Brachial artery] O2 Saturation 95 05/02/18 05/02/18 05/02/18 18:00 19:00 19:53 Temperature 36.4 C L Heart Rate 112 H Heart Rate [ 117 H 117 H Monitoring electrodes] Respiratory 44 H 43 H 34 H Rate Blood Pressure Blood Pressure 94/68 92/69 [Left Brachial artery] Blood Pressure [Right Brachial artery] O2 Saturation 96 95 05/02/18 05/02/18 05/02/18 19:57 20:00 21:00 Temperature Heart Rate 112 H Heart Rate [ 112 H 104 H Monitoring electrodes] Respiratory 34 H 30 H Rate Blood Pressure Blood Pressure 95/72 79/57 L [Left Brachial artery] Blood Pressure [Right Brachial artery] O2 Saturation 97 97 05/02/18 05/02/18 05/02/18 22:00 22:15 23:00 Temperature Heart Rate 96 Heart Rate [ 96 92 Monitoring electrodes] Respiratory 25 H 26 H Rate Blood Pressure Blood Pressure 82/59 L 83/63 L [Left Brachial artery] Blood Pressure [Right Brachial artery] O2 Saturation 97 99 05/03/18 05/03/18 05/03/18 00:00 00:12 01:00 Temperature 36.6 C Heart Rate 87 Heart Rate [ 86 79 Monitoring electrodes] Respiratory 22 23 Rate Blood Pressure Blood Pressure 83/62 L 84/62 L [Left Brachial artery] Blood Pressure [Right Brachial artery] O2 Saturation 99 100 05/03/18 05/03/18 05/03/18 02:00 02:25 03:00 Temperature Heart Rate 92 Heart Rate [ 81 94 Monitoring electrodes] Respiratory 22 28 H Rate Blood Pressure Blood Pressure 97/69 104/69 [Left Brachial artery] Blood Pressure [Right Brachial artery] O2 Saturation 100 91 L 05/03/18 05/03/18 05/03/18 03:11 03:57 04:00 Temperature 36.6 C Heart Rate 92 88 Heart Rate [ 88 Monitoring electrodes] Respiratory 21 Rate Blood Pressure Blood Pressure 99/70 [Left Brachial artery] Blood Pressure [Right Brachial artery] O2 Saturation 99 05/03/18 05/03/18 05/03/18 05:00 05:30 06:00 Temperature Heart Rate 80 Heart Rate [ 89 80 Monitoring electrodes] Respiratory 23 22 Rate Blood Pressure Blood Pressure 88/68 L 94/66 [Left Brachial artery] Blood Pressure [Right Brachial artery] O2 Saturation 99 99 05/03/18 05/03/18 07:00 08:00 Temperature 36.1 C L Heart Rate Heart Rate [ 80 78 Monitoring electrodes] Respiratory 25 H 22 Rate Blood Pressure Blood Pressure 107/69 103/70 [Left Brachial artery] Blood Pressure [Right Brachial artery] O2 Saturation 100 Oxygen O2 Source BIPAP Oxygen Flow Rate 3 I&O (Last 24 Hrs): Intake and Output Totals x24h 05/01/18 05/02/18 05/03/18 23:59 23:59 23:59 Intake Total 250 50 Output Total 150 125 Balance 100 -75 General: Alert, Oriented x3 HEENT: Mucous membr. moist/pink, Other (Lips cyanotic, face chelsie) Neck: Supple, No JVD Neuro: Non Focal Cardiovascular: No murmurs, Other (Distant heart sounds) Respiratory: No respiratory distress, Breath sounds nml Abdomen: Soft Extremities: No edema - Results Results: Laboratory Results WBC 11.2 x10^3/uL (4.8-10.8) H 05/03/18 06:57 RBC 3.80 10^6/uL (4.70-6.10) L 05/03/18 06:57 Hgb 11.8 g/dL (14.0-18.0) L 05/03/18 06:57 Hct 36.1 % (42.0-52.0) L 05/03/18 06:57 MCV 95.1 fL (80.0-94.0) H 05/03/18 06:57 MCH 31.2 pg (27.0-31.0) H 05/03/18 06:57 MCHC 32.8 g/dL (32.0-36.0) 05/03/18 06:57 RDW 15.3 % (12.0-15.0) H 05/03/18 06:57 Plt Count 162 10^3/uL (130-450) 05/03/18 06:57 MPV 7.6 fL (7.4-11.4) 05/03/18 06:57 Neut # (Auto) 9.6 10^3/uL (1.5-6.6) H 05/03/18 06:57 Lymph # (Auto) 1.1 10^3/uL (1.5-3.5) L 05/03/18 06:57 [place] # (Auto) 0.4 10^3/uL (0.0-1.0) 05/03/18 06:57 Eos # (Auto) 0.0 10^3/uL (0.0-0.7) 05/03/18 06:57 Baso # (Auto) 0.0 10^3/uL (0.0-0.1) 05/03/18 06:57 Absolute Nucleated RBC 0.00 x10^3/uL 05/03/18 06:57 Nucleated RBC % 0.0 /100WBC 05/03/18 06:57 Manual Slide Review Indicated 05/02/18 12:10 Platelet Estimate NORMAL (130-450,000) (NORMAL) 05/02/18 12:10 Platelet Morphology NORMAL APPEARANCE (NORMAL) 05/02/18 12:10 RBC Morph Micro Appear 1+ POIKILOCYTOSIS (NORMAL) 05/02/18 12:10 Bld Gas Analysis Time 193505/02/18 19:36 Sample Site RIGHT RADIAL 05/02/18 19:36 ABG pH 7.33 (7.35-7.45) L 05/02/18 19:36 ABG pCO2 43 mmHg (34-45) 05/02/18 19:36 ABG pO2 86 mmHg (80-100) 05/02/18 19:36 ABG HCO3 22.3 mmol/L (22.0-26.0) 05/02/18 19:36 ABG Total CO2 23.6 MMOL/L (21.0-29.0) 05/02/18 19:36 ABG O2 Saturation 96 % (94-98) 05/02/18 19:36 ABG Base Excess -3.5 mmol/L (-2.0-3.0) L 05/02/18 19:36 [place]airo Test POSITIVE 05/02/18 19:36 O2 Delivery Device BiPAP 05/02/18 19:36 O2 Liters/Min 15.00 LPM 05/02/18 16:34 Vent Mode SYNCHRONOUS/TIMES 05/02/18 19:36 FiO2 50.00 05/02/18 19:36 Pressure Support Vent 8 cmH2O 05/02/18 19:36 EPAP 6 cmH2O 05/02/18 19:36 IPAP 14 cmH2O 05/02/18 19:36 Sodium 134 mmol/L (135-145) L 05/03/18 06:57 Potassium 4.4 mmol/L (3.5-5.0) 05/03/18 06:57 Chloride 103 mmol/L (101-111) 05/03/18 06:57 Carbon Dioxide 24 mmol/L (21-32) 05/03/18 06:57 Anion Gap 7.0 (6-13) 05/03/18 06:57 BUN 24 mg/dL (6-20) H 05/03/18 06:57 Creatinine 0.9 mg/dL (0.6-1.2) 05/03/18 06:57 Estimated GFR (MDRD) 84 (>89) L 05/03/18 06:57 Glucose 166 mg/dL (70-100) H 05/03/18 06:57 Lactic Acid 1.5 mmol/L (0.5-2.2) 05/02/18 19:10 Calcium 7.7 mg/dL (8.5-10.3) L 05/03/18 06:57 Troponin I < 0.04 ng/mL (<0.49) 05/02/18 12:10 Influenza A (Rapid) POSITIVE (Negative) H 05/02/18 12:08 Influenza B (Rapid) Negative (Negative) 05/02/18 12:08
[2018-05-03] MEDS: SODIUM CHLORIDE FLUSH 0.9% 10 ML SYRINGE IVP SCH ×3 (09:24→22:10)
[2018-05-03] MEDS: CARVEDILOL 12.5 MG TABLET PO SCH ×2 (10:05→20:17)
[2018-05-03] MEDS: FINASTERIDE 5 MG TABLET PO SCH (10:07)
[2018-05-03] MEDS: CHOLECALCIFEROL 1,000 UNIT TABLET PO SCH (10:07)
[2018-05-03] MEDS: ASPIRIN EC 81 MG TABLET PO SCH (10:07)
[2018-05-03] MEDS: FAMOTIDINE 20 MG TABLET PO SCH ×2 (10:07→20:17)
[2018-05-03] MEDS: LOSARTAN 50 MG TABLET PO SCH ×2 (10:08→20:18)
[2018-05-03] MEDS: POLYETHYLENE GLYCOL 3350 17 GM PACKET PO SCH (10:12)
--- NOTE | 2018-05-03 12:57 | ED Physician Documentation ---
ED Addendum - Addendum Addendum: 05/03/18 12:57 Diagnosis COPD exacerbation Status poor
[2018-05-03] MEDS: ATORVASTATIN 40 MG TABLET PO SCH (20:17)
[2018-05-03] MEDS: MORPHINE 2 MG/ML SYRINGE IVP PRN ×2 (20:18→23:16)
[2018-05-03] MEDS ORDERED: CALCIUM CARBONATE CHEW 500 MG TABLET PO PRN (21:13)
[2018-05-03] MEDS: LEVALBUTEROL 1.25 MG/3 ML NEB INH PRN (23:20)
[2018-05-04] MEDS: methylPREDNISolone SUCCINATE 125 MG/2 ML VIAL IVP SCH ×4 (02:21→20:29)
[2018-05-04] MEDS: LEVALBUTEROL 1.25 MG/3 ML NEB INH PRN ×5 (02:51→19:25)
[2018-05-04 05:16] LABS: BASOPHILS % (AUTO) 0.1 %; HGB - HEMOGLOBIN 11.4 g/dL (14.0-18.0); LYMPHOCYTES # (AUTO) 0.5 10^3/uL (1.5-3.5); MEAN CORPUSCULAR HEMOGLOBIN 31.9 pg (27.0-31.0); MEAN CORPUSCULAR HGB CONC 33.4 g/dL (32.0-36.0); MEAN CORPUSCULAR VOLUME 95.5 fL (80.0-94.0); MEAN PLATELET VOLUME 7.6 fL (7.4-11.4); MONOCYTES # (AUTO) 0.4 10^3/uL (0.0-1.0); MONOCYTES % (AUTO) 4.2 %; NEUTROPHILS # (AUTO) 9.4 10^3/uL (1.5-6.6); NEUTROPHILS % (AUTO) 90.7 %; PLT - PLATELET COUNT 152 10^3/uL (130-450); RED BLOOD COUNT 3.56 10^6/uL (4.70-6.10); WHITE BLOOD COUNT 10.4 x10^3/uL (4.8-10.8)
[2018-05-04 05:23] LABS: CREATININE 0.8 mg/dL (0.6-1.2)
[2018-05-04] MEDS: CEFEPIME 2 GM in SODIUM CHLORIDE 0.9% MINIBAG 100 ML IV SCH ×3 (06:35→22:34)
[2018-05-04] MEDS: IPRATROPIUM 0.2 MG/ML NEB INH SCH ×4 (07:50→19:25)
[2018-05-04] MEDS: FAMOTIDINE 20 MG TABLET PO SCH ×2 (09:00→20:29)
[2018-05-04] MEDS: ASPIRIN EC 81 MG TABLET PO SCH (09:00)
[2018-05-04] MEDS: FINASTERIDE 5 MG TABLET PO SCH (09:01)
[2018-05-04] MEDS: CHOLECALCIFEROL 1,000 UNIT TABLET PO SCH (09:01)
[2018-05-04] MEDS: LOSARTAN 50 MG TABLET PO SCH ×2 (09:01→20:29)
[2018-05-04] MEDS: CARVEDILOL 12.5 MG TABLET PO SCH ×2 (09:01→20:29)
[2018-05-04] MEDS: POLYETHYLENE GLYCOL 3350 17 GM PACKET PO SCH (09:04)
--- NOTE | 2018-05-04 10:48 | PROVIDER PROGRESS NOTE ---
Assessment/Plan - Problem List (1) COPD exacerbation Assessment/Plan: Continue iv steroids, nebs, Mucinex and treating underlying pneumonia. Will order OOB to chair tid, Acappella and IS for better ventilation. (2) CAP (community acquired pneumonia) Assessment/Plan: Continue empiric iv antibiotic. Await sputum and blood cultures. Follow CBC daily. (3) Influenza A Assessment/Plan: He is in respiratory isolation. Tamiflu was not started as he presented > 72 hors from onset of symptoms. (4) DM type 2 (diabetes mellitus, type 2) Assessment/Plan: Continue carb controlled diet, ss Insulin for fingerstick glu checks. A1c is pending. (5) Hx of coronary artery disease Assessment/Plan: Stable on meds. (6) CO2 narcosis Assessment/Plan: Resolved (7) Sepsis Assessment/Plan: Resolved - Current Meds Current Meds: Current Medications Generic Name Dose Route Start Last Admin Trade Name Freq PRN Reason Stop Dose Admin Aspirin 81 mg 05/03/18 09:00 05/04/18 09:00 Ecotrin PO 81 mg DAILY PEE Administration Atorvastatin Calcium 40 mg 05/03/18 21:00 05/03/18 20:17 Lipitor PO 40 mg QPM PEE Administration Calcium Carbonate/Glycine 500 mg 05/03/18 21:13 05/03/18 22:09 Tums PO 500 mg TID PRN Administration Heartburn Carvedilol 25 mg 05/03/18 09:00 05/04/18 09:01 Coreg PO 25 mg BID PEE Administration Cholecalciferol 1,000 unit 05/03/18 09:00 05/04/18 09:01 Vitamin D3 PO 1,000 unit DAILY PEE Administration Famotidine 20 mg 05/02/18 21:00 05/04/18 09:00 Pepcid PO 20 mg BID PEE Administration Finasteride 5 mg 05/03/18 09:00 05/04/18 09:01 Proscar PO 5 mg DAILY PEE Administration Cefepime HCl 2 gm/ Sodium 100 mls @ 200 mls/hr 05/02/18 15:00 05/04/18 07:05 Chloride IV Infused Q8H PEE Infusion Ipratropium [place] 0.5 mg 05/02/18 15:00 05/04/18 07:50 Atrovent INH 0.5 mg RTQ4H PEE Administration Levalbuterol HCl 1.25 mg 05/03/18 20:11 05/04/18 07:50 Xopenex INH 1.25 mg RTQ4H PRN Administration Dyspnea Losartan Potassium 25 mg 05/03/18 09:00 05/04/18 09:01 Cozaar PO 25 mg BID PEE Administration Methylprednisolone Sodium Succinate 60 mg 05/02/18 15:00 05/04/18 09:00 Solu-Medrol (125mg Vial) IVP 60 mg Q6H PEE Administration Mineral Oil 1 applic 05/02/18 21:46 05/02/18 22:09 Cavilon TOP 1 applic PRN PRN Administration Skin Care Polyethylene Glycol 17 gm 05/03/18 09:00 05/04/18 09:04 Miralax PO Not Given DAILY PEE Sodium Chloride 10 ml 05/02/18 14:33 05/03/18 02:50 Normal Saline Flush 0.9% IVP 10 ml PRN PRN Administration NEEDED PER PROVIDER ORDERS Sodium Chloride 10 ml 05/02/18 17:00 05/03/18 22:10 Normal Saline Flush 0.9% IVP 10 ml 0100,0900,1700 PEE Administration - Lab Result Fish Bone Diagrams: 05/04/18 05:08 05/04/18 05:08 - Additional Planning My Orders: My Active Orders 05/03/18 21:00 Atorvastatin [Lipitor] 40 mg PO QPM 05/04/18 08:47 ALPRAZolam [Xanax] 0.25 mg PO Q6HR PRN Subjective - Subjective Patient Reports: Shortness of Breath, Other (He had a sudden SOB episode and wa nted the BIPAP back on.) Nursing Reports: Other (He got a nebulizer treatment and felt better, did not get put on BIPAP, continues to be on oximizer for O2) Objective Vital Signs: Vital Signs - 24 hr 05/03/18 05/03/18 05/03/18 11:00 12:00 12:30 Temperature 36.6 C Heart Rate 77 Heart Rate [ 74 78 Monitoring electrodes] Respiratory 18 22 26 H Rate Blood Pressure 108/85 H 109/70 [Left Brachial artery] O2 Saturation 94 94 05/03/18 05/03/18 05/03/18 13:00 14:00 15:00 Temperature Heart Rate Heart Rate [ 75 76 79 Monitoring electrodes] Respiratory 266 H 26 H 20 Rate Blood Pressure 95/69 101/68 109/64 [Left Brachial artery] O2 Saturation 95 95 98 05/03/18 05/03/18 05/03/18 15:25 16:00 17:00 Temperature Heart Rate 77 Heart Rate [ 80 866 H Monitoring electrodes] Respiratory 24 22 24 Rate Blood Pressure 108/63 113/74 [Left Brachial artery] O2 Saturation 96 96 05/03/18 05/03/18 05/03/18 18:00 19:00 19:30 Temperature Heart Rate 78 Heart Rate [ 86 82 Monitoring electrodes] Respiratory 23 22 25 H Rate Blood Pressure 114/73 113/67 [Left Brachial artery] O2 Saturation 96 97 05/03/18 05/03/18 05/03/18 20:00 21:00 22:00 Temperature Heart Rate Heart Rate [ 88 86 76 Monitoring electrodes] Respiratory 24 21 21 Rate Blood Pressure 116/71 113/73 109/71 [Left Brachial artery] O2 Saturation 95 98 96 05/03/18 05/03/18 05/04/18 23:00 23:21 00:00 Temperature 36.6 C Heart Rate 88 Heart Rate [ 88 82 Monitoring electrodes] Respiratory 17 21 22 Rate Blood Pressure 119/64 101/70 [Left Brachial artery] O2 Saturation 94 100 05/04/18 05/04/18 05/04/18 01:00 01:37 02:00 Temperature Heart Rate 73 Heart Rate [ 70 70 Monitoring electrodes] Respiratory 19 19 Rate Blood Pressure 91/64 99/62 [Left Brachial artery] O2 Saturation 99 94 05/04/18 05/04/18 05/04/18 02:59 03:00 04:00 Temperature 36.8 C Heart Rate 74 Heart Rate [ 73 65 Monitoring electrodes] Respiratory 23 20 20 Rate Blood Pressure 116/65 106/62 [Left Brachial artery] O2 Saturation 97 95 18/05/04/18 05/04/18 05:00 06:00 07:00 Temperature Heart Rate Heart Rate [ 71 69 65 Monitoring electrodes] Respiratory 23 21 21 Rate Blood Pressure 111/66 116/63 113/89 H [Left Brachial artery] O2 Saturation 96 92 97 05/04/1805/04/05/04/18 07:55 08:00 09:00 Temperature 36.8 C Heart Rate 100 Heart Rate [ 95 100 Monitoring electrodes] Respiratory 26 H 30 H 25 H Rate Blood Pressure 132/88 H 119/67 [Left Brachial artery] O2 Saturation 99 90 L 05/04/18 10:00 Temperature Heart Rate Heart Rate [ 92 Monitoring electrodes] Respiratory 23 Rate Blood Pressure 116/71 [Left Brachial artery] O2 Saturation 94 Oxygen O2 Source Nasal cannula Oxygen Flow Rate 3 I&O (Last 24 Hrs): Intake and Output Totals x24h 05/02/18 05/03/18 05/04/18 23:59 23:59 23:59 Intake Total 250 1525 460 Output Total 150 500 200 Balance 100 1025 260 General: Alert, Oriented x3 HEENT: Mucous membr. moist/pink, Other (Wearing O2 per oximizer, pursed lip breathing between sentences. Lips are cyanotic (prurple).) Neck: Supple Neuro: Non Focal Cardiovascular: No murmurs Respiratory: Breath sounds nml Abdomen: Soft, Other (I cannot R/O organomegaly) Extremities: No edema - Results Results: Laboratory Results WBC 10.4 x10^3/uL (4.8-10.8) 05/04/18 05:08 RBC 3.56 10^6/uL (4.70-6.10) L 05/04/18 05:08 Hgb 11.4 g/dL (14.0-18.0) L 05/04/18 05:08 Hct 34.0 % (42.0-52.0) L 05/04/18 05:08 MCV 95.5 fL (80.0-94.0) H 05/04/18 05:08 MCH 31.9 pg (27.0-31.0) H 05/04/18 05:08 MCHC 33.4 g/dL (32.0-36.0) 05/04/18 05:08 RDW 15.0 % (12.0-15.0) 05/04/18 05:08 Plt Count 152 10^3/uL (130-450) 05/04/18 05:08 MPV 7.6 fL (7.4-11.4) 05/04/18 05:08 Neut # (Auto) 9.4 10^3/uL (1.5-6.6) H 05/04/18 05:08 Lymph # (Auto) 0.5 10^3/uL (1.5-3.5) L 05/04/18 05:08 [place] # (Auto) 0.4 10^3/uL (0.0-1.0) 05/04/18 05:08 Eos # (Auto) 0.0 10^3/uL (0.0-0.7) 05/04/18 05:08 Baso # (Auto) 0.0 10^3/uL (0.0-0.1) 05/04/18 05:08 Absolute Nucleated RBC 0.02 x10^3/uL 05/04/18 05:08 Nucleated RBC % 0.1 /100WBC 05/04/18 05:08 Manual Slide Review Indicated 05/02/18 12:10 Platelet Estimate NORMAL (130-450,000) (NORMAL) 05/02/18 12:10 Platelet Morphology NORMAL APPEARANCE (NORMAL) 05/02/18 12:10 RBC Morph Micro Appear 1+ POIKILOCYTOSIS (NORMAL) 05/02/18 12:10 Bld Gas Analysis Time 19305/02/18 19:36 Sample Site RIGHT RADIAL 05/02/18 19:36 ABG pH 7.33 (7.35-7.45) L 05/02/18 19:36 ABG pCO2 43 mmHg (34-45) 05/02/18 19:36 ABG pO2 86 mmHg (80-100) 05/02/18 19:36 ABG HCO3 22.3 mmol/L (22.0-26.0) 05/02/18 19:36 ABG Total CO2 23.6 MMOL/L (21.0-29.0) 05/02/18 19:36 ABG O2 Saturation 96 % (94-98) 05/02/18 19:36 ABG Base Excess -3.5 mmol/L (-2.0-3.0) L 05/02/18 19:36 [place] Test POSITIVE 05/02/18 19:36 O2 Delivery Device BiPAP 05/02/18 19:36 O2 Liters/Min 15.00 LPM 05/02/18 16:34 Vent Mode SYNCHRONOUS/TIMES 05/02/18 19:36 FiO2 50.00 05/02/18 19:36 Pressure Support Vent 8 cmH2O 05/02/18 19:36 EPAP 6 cmH2O 05/02/18 19:36 IPAP 14 cmH2O 05/02/18 19:36 Sodium 136 mmol/L (135-145) 05/04/18 05:08 Potassium 4.4 mmol/L (3.5-5.0) 05/04/18 05:08 Chloride 104 mmol/L (101-111) 05/04/18 05:08 Carbon Dioxide 25 mmol/L (21-32) 05/04/18 05:08 Anion Gap 7.0 (6-13) 05/04/18 05:08 BUN 22 mg/dL (6-20) H 05/04/18 05:08 Creatinine 0.8 mg/dL (0.6-1.2) 05/04/18 05:08 Estimated GFR (MDRD) 96 (>89) 05/04/18 05:08 Glucose 167 mg/dL (70-100) H 05/04/18 05:08 Lactic Acid 1.5 mmol/L (0.5-2.2) 05/02/18 19:10 Calcium 8.0 mg/dL (8.5-10.3) L 05/04/18 05:08 Troponin I < 0.04 ng/mL (<0.49) 05/02/18 12:10 Influenza A (Rapid) POSITIVE (Negative) H 05/02/18 12:08 Influenza B (Rapid) Negative (Negative) 05/02/18 12:08
[2018-05-04] MEDS: ALPRAZolam 0.25 MG TABLET PO PRN (13:29)
[2018-05-04] MEDS: SODIUM CHLORIDE FLUSH 0.9% 10 ML SYRINGE IVP SCH ×2 (15:15→17:39)
[2018-05-04] MEDS: MORPHINE 2 MG/ML SYRINGE IVP PRN ×2 (15:24→19:23)
[2018-05-04 15:30] LABS: ALBUMIN 2.4 g/dL (3.2-5.5); BILIRUBIN,DIRECT 0.2 mg/dL (0.1-0.5); TOTAL PROTEIN 5.1 g/dL (6.7-8.2)
[2018-05-04 15:52] LABS: HB2 TOTAL 11.9 g/dL; HEMOGLOBIN A1C 0.47 g/dL; HEMOGLOBIN A1C % 5.8 % (4.6-6.2)
[2018-05-04] MEDS: INSULIN ASPART 300 UNIT/3 ML PEN SUBQ SCH ×2 (17:52→20:41)
[2018-05-04] MEDS ORDERED: INSULIN ASPART 300 UNIT/3 ML PEN SUBQ ONE (17:54)
[2018-05-04] MEDS: SODIUM CHLORIDE FLUSH 0.9% 10 ML SYRINGE IVP PRN (19:23)
[2018-05-04] MEDS: ATORVASTATIN 40 MG TABLET PO SCH (20:30)
[2018-05-05] MEDS: MORPHINE 2 MG/ML SYRINGE IVP PRN ×4 (00:10→22:13)
[2018-05-05] MEDS: SODIUM CHLORIDE FLUSH 0.9% 10 ML SYRINGE IVP SCH ×5 (00:10→19:17)
[2018-05-05] MEDS: methylPREDNISolone SUCCINATE 125 MG/2 ML VIAL IVP SCH (02:49)
[2018-05-05 05:07] LABS: BASOPHILS % (AUTO) 0.2 %; HGB - HEMOGLOBIN 11.5 g/dL (14.0-18.0); LYMPHOCYTES # (AUTO) 0.4 10^3/uL (1.5-3.5); LYMPHOCYTES % (AUTO) 4.4 %; MEAN CORPUSCULAR HEMOGLOBIN 31.6 pg (27.0-31.0); MEAN CORPUSCULAR HGB CONC 33.2 g/dL (32.0-36.0); MEAN CORPUSCULAR VOLUME 95.1 fL (80.0-94.0); MEAN PLATELET VOLUME 7.7 fL (7.4-11.4); MONOCYTES # (AUTO) 0.4 10^3/uL (0.0-1.0); MONOCYTES % (AUTO) 4.5 %; NEUTROPHILS # (AUTO) 8.4 10^3/uL (1.5-6.6); NEUTROPHILS % (AUTO) 90.9 %; PLT - PLATELET COUNT 165 10^3/uL (130-450); RED BLOOD COUNT 3.63 10^6/uL (4.70-6.10); RED CELL DISTRIBUTION WIDTH 15.3 % (12.0-15.0); WHITE BLOOD COUNT 9.3 x10^3/uL (4.8-10.8)
[2018-05-05 05:18] LABS: CREATININE 0.6 mg/dL (0.6-1.2)
[2018-05-05 05:24] LABS: HB2 TOTAL 12.4 g/dL; HEMOGLOBIN A1C 0.49 g/dL; HEMOGLOBIN A1C % 5.8 % (4.6-6.2)
[2018-05-05] MEDS: CEFEPIME 2 GM in SODIUM CHLORIDE 0.9% MINIBAG 100 ML IV SCH ×3 (06:07→22:15)
[2018-05-05] MEDS: IPRATROPIUM 0.2 MG/ML NEB INH SCH ×4 (07:13→19:17)
[2018-05-05] MEDS: LEVALBUTEROL 1.25 MG/3 ML NEB INH PRN ×4 (07:13→19:17)
[2018-05-05] MEDS: CARVEDILOL 12.5 MG TABLET PO SCH ×2 (08:54→20:31)
[2018-05-05] MEDS: CHOLECALCIFEROL 1,000 UNIT TABLET PO SCH (08:54)
[2018-05-05] MEDS: FAMOTIDINE 20 MG TABLET PO SCH ×2 (08:55→20:31)
[2018-05-05] MEDS: FINASTERIDE 5 MG TABLET PO SCH (08:55)
[2018-05-05] MEDS: LOSARTAN 50 MG TABLET PO SCH ×2 (08:55→20:31)
[2018-05-05] MEDS: ASPIRIN EC 81 MG TABLET PO SCH (08:55)
[2018-05-05] MEDS: INSULIN ASPART 300 UNIT/3 ML PEN SUBQ SCH ×4 (09:03→20:37)
[2018-05-05] MEDS: methylPREDNISolone SUCCINATE 40 MG/ML VIAL IVP SCH ×3 (10:29→22:07)
[2018-05-05] MEDS: POLYETHYLENE GLYCOL 3350 17 GM PACKET PO SCH (11:14)
[2018-05-05] MEDS: SODIUM CHLORIDE FLUSH 0.9% 10 ML SYRINGE IVP PRN ×2 (11:17→22:08)
[2018-05-05] MEDS: MULTIVITAMIN W/MINERALS TABLET PO SCH (12:26)
[2018-05-05] MEDS: SACCHAROMYCES BOULARDII 250 MG CAPSULE PO SCH (17:32)
[2018-05-05] MEDS: ATORVASTATIN 40 MG TABLET PO SCH (20:31)
--- NOTE | 2018-05-05 20:49 | PROVIDER PROGRESS NOTE ---
Subjective - Prog Note Date Prog Note Date: 05/05/18 Prog Note Time: 20:46 - Subjective Pt reports feeling: Improved Subjective: he reports being improved but still using acessory muscles to breathe. at baseline, on a good day, he can get up to bathroom and kitchen and do his ADL's slowly and steadily. But not quickly. He lives w his daughter and she does housework, grocery shopping. He can still walk to car and walk inside store and back to car. again slowly. uses cart to support him. at home occ uses a walker to support him. right now sob at rest. better but still sob. Current Medications - Current Medications Current Medications: Active Medications Acetaminophen (Tylenol) 650 mg PO Q4HR PRN PRN Reason: Pain 1 to 4 Alprazolam (Xanax) 0.25 mg PO Q6HR PRN PRN Reason: Anxiety Last Admin: 05/04/18 13:29 Dose: 0.25 mg Aspirin (Ecotrin) 81 mg PO DAILY [facility] Last Admin: 05/05/18 08:55 Dose: 81 mg Atorvastatin Calcium (Lipitor) 40 mg PO QPM [facility] Last Admin: 05/05/18 20:31 Dose: 40 mg Calcium Carbonate/Glycine (Tums) 500 mg PO TID PRN PRN Reason: Heartburn Last Admin: 05/03/18 22:09 Dose: 500 mg Carvedilol (Coreg) 25 mg PO BID [facility] Last Admin: 05/05/18 20:31 Dose: 25 mg Cholecalciferol (Vitamin D3) 1,000 unit PO DAILY [facility] Last Admin: 05/05/18 08:54 Dose: 1,000 unit Famotidine (Pepcid) 20 mg PO BID [facility] Last Admin: 05/05/18 20:31 Dose: 20 mg Finasteride (Proscar) 5 mg PO DAILY [facility] Last Admin: 05/05/18 08:55 Dose: 5 mg Cefepime HCl 2 gm/ Sodium (Chloride) 100 mls @ 200 mls/hr IV Q8H [facility] Last Infusion: 05/05/18 16:12 Dose: Infused Insulin Aspart (Novolog) 1 - 5 unit SUBQ 0800,1200,1700,2100 [facility]; Protocol Last Admin: 05/05/18 20:37 Dose: 3 unit Ipratropium [place] (Atrovent) 0.5 mg INH RTQ4H [facility] Last Admin: 05/05/18 19:17 Dose: 0.5 mg Levalbuterol HCl (Xopenex) 1.25 mg INH RTQ4H PRN PRN Reason: Dyspnea Last Admin: 05/05/18 19:17 Dose: 1.25 mg Losartan Potassium (Cozaar) 25 mg PO BID [facility] Last Admin: 05/05/18 20:31 Dose: 25 mg Methylprednisolone (Solu-Medrol (40mg Vial)) 60 mg IVP Q6H [facility] Last Admin: 05/05/18 16:17 Dose: 60 mg Mineral Oil (Cavilon) 1 applic TOP PRN PRN PRN Reason: Skin Care Last Admin: 05/02/18 22:09 Dose: 1 applic Morphine Sulfate (Morphine) 2 mg IVP Q2HR PRN PRN Reason: pain or dyspnea Last Admin: 05/05/18 19:17 Dose: 2 mg Multivitamins/Minerals (Theragran M) 1 tab PO DAILYWM [facility] Last Admin: 05/05/18 12:26 Dose: 1 tab Ondansetron HCl (Zofran Inj) 4 mg IVP Q6HR PRN PRN Reason: Nausea / Vomiting Polyethylene Glycol (Miralax) 17 gm PO DAILY [facility] Last Admin: 05/05/18 11:14 Dose: Not Given Saccharomyces Boulardii (Florastor) 250 mg PO BIDWM [facility] Last Admin: 05/05/18 17:32 Dose: 250 mg Sodium Chloride (Normal Saline Flush 0.9%) 10 ml IVP PRN PRN PRN Reason: NEEDED PER PROVIDER ORDERS Last Admin: 05/05/18 11:17 Dose: 10 ml Sodium Chloride (Normal Saline Flush 0.9%) 10 ml IVP 0100,0900,1700 [facility] Last Admin: 05/05/18 19:17 Dose: 10 ml Albuterol Sulfate [Proair Hfa Inhaler] 2 puffs INH Q4H PRN 03/09/18 Atorvastatin Calcium 40 mg PO QPM 03/09/18 Budesonide/Formoterol Fumarate [Symbicort 160-4.5 Mcg Inhaler] 1 puffs INH BID 03/09/18 Carvedilol 25 mg PO BID 03/09/18 Cholecalciferol (Vitamin D3) [Vitamin D3] 1,000 unit PO DAILY 03/09/18 Losartan Potassium 25 mg PO BID 03/09/18 Omeprazole 40 mg PO BID 03/09/18 Tiotropium [place] [Spiriva] 1 puffs INH DAILY 03/09/18 Alfuzosin HCl [Alfuzosin HCl ER] 10 mg PO DAILY 04/30/18 metFORMIN [Glucophage] 250 mg PO QDBREAKFAST 04/30/18 Azithromycin [Zithromax] 250 mg PO DAILY 05/02/18 Torsemide 20 mg PO DAILY 05/02/18 predniSONE [Deltasone] 10 mg PO DAILY 05/02/18 Objective - Vital Signs/Intake & Output Reviewed Vital Signs: Yes Vital Signs: Vital Signs x48h Temp Pulse Pulse Resp BP Pulse Ox 05/05/18 20:00 84 25 H 124/70 94 05/05/18 19:17 81 24 05/05/18 19:00 88 28 H 126/77 94 05/05/18 18:00 87 21 110/62 92 05/05/18 17:00 82 21 127/62 94 05/05/18 16:00 72 21 125/73 97 05/05/18 15:00 69 20 132/74 H 97 05/05/18 14:00 36.5 C 65 19 123/68 96 05/05/18 13:00 87 26 H 130/73 96 Intake & Output: Intake & Output 05/02/18 05/03/18 05/04/18 05/05/18 23:59 23:59 23:59 23:59 Intake Total 250 1525 1220 1220 Output Total 150 500 950 650 Balance 100 1025 270 570 - Objective General Appearance: positive: Alert, Moderate distress (w pursed lips, use of chest wall and abd wall muscles. but not tachypneic. tired.), Other (obese white male w respiratory distress, still falls asleep easily) Eyes Bilateral: positive: PERRL, EOMI ENT: positive: Dry mucous membranes Neck: positive: Other (can't assess JVD since neck so thick). negative: Stiff neck, Carotid bruit Respiratory: positive: Chest non-tender, Wheezes, Rhonchi. negative: Rales Cardiovascular: positive: Regular rate & rhythm, Other (distant tones adn can't feel PMI or RV lift.). negative: Gallop/S4, Friction rub Abdomen: positive: Non-tender, Nml bowel sounds, No distention, Other (huge obese panus). negative: Guarding, Rebound Extremities: positive: Full ROM, Pedal edema Neurologic/Psychiatric: positive: Oriented x3, CN's nml (2-12), Motor nml - Lab Results Fish Bones: 05/05/18 04:48 05/05/18 04:48 Other Labs: Lab Results x24hrs 05/05/18 05/05/18 05/05/18 Range/Units 04:48 04:48 04:48 WBC 9.3 (4.8-10.8) x10^3/uL RBC 3.63 L (4.70-6.10) 10^6/uL Hgb 11.5 L (14.0-18.0) g/dL Hct 34.5 L (42.0-52.0) % MCV 95.1 H (80.0-94.0) fL MCH 31.6 H (27.0-31.0) pg MCHC 33.2 (32.0-36.0) g/dL RDW 15.3 H (12.0-15.0) % Plt Count 165 (130-450) 10^3/uL MPV 7.7 (7.4-11.4) fL Neut # (Auto) 8.4 H (1.5-6.6) 10^3/uL Lymph # (Auto) 0.4 L (1.5-3.5) 10^3/uL [place] # (Auto) 0.4 (0.0-1.0) 10^3/uL Eos # (Auto) 0.0 (0.0-0.7) 10^3/uL Baso # (Auto) 0.0 (0.0-0.1) 10^3/uL Absolute Nucleated RBC 0.00 x10^3/uL Nucleated RBC % 0.0 /100WBC Sodium 135 (135-145) mmol/L Potassium 4.3 (3.5-5.0) mmol/L Chloride 102 (101-111) mmol/L Carbon Dioxide 27 (21-32) mmol/L Anion Gap 6.0 (6-13) BUN 20 (6-20) mg/dL Creatinine 0.6 (0.6-1.2) mg/dL Estimated GFR (MDRD) 134 (>89) Glucose 189 H (70-100) mg/dL Glycated Hemoglobin 5.8 (4.6-6.2) % Estim Average Glucose 120 H (70-100) Calcium 8.0 L (8.5-10.3) mg/dL ABX Reporting Has patient been on IV antibiotics over the past 48 hours?: Yes Assessment/Plan - Problem List (1) Acute exacerbation of COPD with asthma Impression: Continue iv steroids, nebs, Mucinex and treating underlying pneumonia. Will order OOB to chair tid, Acappella and IS for better ventilation. Day #3. VERY slow to improve. I anticipate transfer from ICU to med surg tomorrow with another 1-2 days on med surg. I willl have him get up and walk once on med surg. (2) CAP (community acquired pneumonia) Assessment/Plan: Continue empiric iv antibiotic. blood cultures neg, izabella in sputum. reponding to treatment so izabella is colonization. I would expect he would not have improved if this were yeast pneumonia. Follow CBC daily. (3) Influenza A Assessment/Plan: He is in respiratory isolation. Tamiflu was not started as he presented > 72 hors from onset of symptoms. (4) DM type 2 (diabetes mellitus, type 2) Assessment/Plan: Continue carb controlled diet, ss Insulin for fingerstick glu checks. Selected Entries 05/05/18 05/05/18 05/05/18 07:28 11:25 17:00 Result (mg/dL) 170 218 158 05/05/18 20:36 Result (mg/dL) 235 A1c is 5.8% (5) Hx of coronary artery disease Assessment/Plan: Stable on meds. (6) CO2 narcosis Assessment/Plan: Resolved (7) Sepsis Assessment/Plan: Resolved
[2018-05-06] MEDS: SODIUM CHLORIDE FLUSH 0.9% 10 ML SYRINGE IVP PRN ×4 (02:43→23:01)
[2018-05-06] MEDS: MORPHINE 2 MG/ML SYRINGE IVP PRN ×4 (02:43→23:01)
[2018-05-06] MEDS: LEVALBUTEROL 1.25 MG/3 ML NEB INH PRN ×6 (02:45→23:04)
[2018-05-06] MEDS: methylPREDNISolone SUCCINATE 40 MG/ML VIAL IVP SCH ×4 (04:30→21:24)
[2018-05-06 05:35] LABS: BASOPHILS % (AUTO) 0.1 %; HGB - HEMOGLOBIN 10.8 g/dL (14.0-18.0); LYMPHOCYTES # (AUTO) 0.5 10^3/uL (1.5-3.5); LYMPHOCYTES % (AUTO) 5.4 %; MEAN CORPUSCULAR HEMOGLOBIN 31.4 pg (27.0-31.0); MEAN CORPUSCULAR HGB CONC 33.4 g/dL (32.0-36.0); MEAN CORPUSCULAR VOLUME 94.3 fL (80.0-94.0); MEAN PLATELET VOLUME 8.4 fL (7.4-11.4); MONOCYTES # (AUTO) 0.4 10^3/uL (0.0-1.0); MONOCYTES % (AUTO) 4.3 %; NEUTROPHILS # (AUTO) 8.2 10^3/uL (1.5-6.6); NEUTROPHILS % (AUTO) 90.2 %; PLT - PLATELET COUNT 159 10^3/uL (130-450); RED BLOOD COUNT 3.42 10^6/uL (4.70-6.10); RED CELL DISTRIBUTION WIDTH 14.7 % (12.0-15.0); WHITE BLOOD COUNT 9.1 x10^3/uL (4.8-10.8)
[2018-05-06 05:41] LABS: CREATININE 0.6 mg/dL (0.6-1.2)
[2018-05-06] MEDS: CEFEPIME 2 GM in SODIUM CHLORIDE 0.9% MINIBAG 100 ML IV SCH ×3 (06:19→22:33)
[2018-05-06] MEDS: IPRATROPIUM 0.2 MG/ML NEB INH SCH ×4 (07:42→19:08)
[2018-05-06] MEDS: INSULIN ASPART 300 UNIT/3 ML PEN SUBQ SCH ×4 (08:02→20:41)
[2018-05-06] MEDS: SACCHAROMYCES BOULARDII 250 MG CAPSULE PO SCH ×2 (08:03→17:25)
[2018-05-06] MEDS: CARVEDILOL 12.5 MG TABLET PO SCH ×2 (08:04→20:33)
[2018-05-06] MEDS: MULTIVITAMIN W/MINERALS TABLET PO SCH (08:04)
[2018-05-06] MEDS: ASPIRIN EC 81 MG TABLET PO SCH (08:04)
[2018-05-06] MEDS: FAMOTIDINE 20 MG TABLET PO SCH ×2 (08:04→20:33)
[2018-05-06] MEDS: CHOLECALCIFEROL 1,000 UNIT TABLET PO SCH (08:04)
[2018-05-06] MEDS: LOSARTAN 50 MG TABLET PO SCH ×2 (08:05→20:33)
[2018-05-06] MEDS: FINASTERIDE 5 MG TABLET PO SCH (08:05)
[2018-05-06] MEDS: POLYETHYLENE GLYCOL 3350 17 GM PACKET PO SCH (08:08)
--- NOTE | 2018-05-06 10:20 | PROVIDER PROGRESS NOTE ---
Subjective - Prog Note Date Prog Note Date: 05/06/18 Prog Note Time: 10:16 - Subjective Pt reports feeling: No change Subjective: He is a little more short of breath this morning. Yesterday he was able to have slow steady conversation with me without increased respiratory effort. This morning just greeting me and trying to speak leaves him gasping for air. He is frightened. He would like a nebulizer treatment "right now". Overnight there have been no fevers. Vital signs of been stable. Current Medications - Current Medications Current Medications: Active Medications Acetaminophen (Tylenol) 650 mg PO Q4HR PRN PRN Reason: Pain 1 to 4 Alprazolam (Xanax) 0.25 mg PO Q6HR PRN PRN Reason: Anxiety Last Admin: 05/04/18 13:29 Dose: 0.25 mg Aspirin (Ecotrin) 81 mg PO DAILY [facility] Last Admin: 05/06/18 08:04 Dose: 81 mg Atorvastatin Calcium (Lipitor) 40 mg PO QPM [facility] Last Admin: 05/05/18 20:31 Dose: 40 mg Calcium Carbonate/Glycine (Tums) 500 mg PO TID PRN PRN Reason: Heartburn Last Admin: 05/03/18 22:09 Dose: 500 mg Carvedilol (Coreg) 25 mg PO BID [facility] Last Admin: 05/06/18 08:04 Dose: 25 mg Cholecalciferol (Vitamin D3) 1,000 unit PO DAILY [facility] Last Admin: 05/06/18 08:04 Dose: 1,000 unit Famotidine (Pepcid) 20 mg PO BID [facility] Last Admin: 05/06/18 08:04 Dose: 20 mg Finasteride (Proscar) 5 mg PO DAILY [facility] Last Admin: 05/06/18 08:05 Dose: 5 mg Cefepime HCl 2 gm/ Sodium (Chloride) 100 mls @ 200 mls/hr IV Q8H [facility] Last Infusion: 05/06/18 07:00 Dose: Infused Insulin Aspart (Novolog) 1 - 5 unit SUBQ 0800,1200,1700,2100 [facility]; Protocol Last Admin: 05/06/18 08:02 Dose: 2 unit Ipratropium [place] (Atrovent) 0.5 mg INH RTQ4H [facility] Last Admin: 05/06/18 07:42 Dose: 0.5 mg Levalbuterol HCl (Xopenex) 1.25 mg INH RTQ4H PRN PRN Reason: Dyspnea Last Admin: 05/06/18 07:42 Dose: 1.25 mg Losartan Potassium (Cozaar) 25 mg PO BID [facility] Last Admin: 05/06/18 08:05 Dose: 25 mg Methylprednisolone (Solu-Medrol (40mg Vial)) 60 mg IVP Q6H [facility] Last Admin: 05/06/18 04:30 Dose: 60 mg Mineral Oil (Cavilon) 1 applic TOP PRN PRN PRN Reason: Skin Care Last Admin: 05/02/18 22:09 Dose: 1 applic Morphine Sulfate (Morphine) 2 mg IVP Q2HR PRN PRN Reason: pain or dyspnea Last Admin: 05/06/18 06:13 Dose: 2 mg Multivitamins/Minerals (Theragran M) 1 tab PO DAILYWM [facility] Last Admin: 05/06/18 08:04 Dose: 1 tab Ondansetron HCl (Zofran Inj) 4 mg IVP Q6HR PRN PRN Reason: Nausea / Vomiting Polyethylene Glycol (Miralax) 17 gm PO DAILY [facility] Last Admin: 05/06/18 08:08 Dose: Not Given Saccharomyces Boulardii (Florastor) 250 mg PO BIDWM [facility] Last Admin: 05/06/18 08:03 Dose: 250 mg Sodium Chloride (Normal Saline Flush 0.9%) 10 ml IVP PRN PRN PRN Reason: NEEDED PER PROVIDER ORDERS Last Admin: 05/06/18 06:14 Dose: 10 ml Sodium Chloride (Normal Saline Flush 0.9%) 10 ml IVP 0100,0900,1700 [facility] Last Admin: 05/05/18 19:17 Dose: 10 ml Albuterol Sulfate [Proair Hfa Inhaler] 2 puffs INH Q4H PRN 03/09/18 Atorvastatin Calcium 40 mg PO QPM 03/09/18 Budesonide/Formoterol Fumarate [Symbicort 160-4.5 Mcg Inhaler] 1 puffs INH BID 03/09/18 Carvedilol 25 mg PO BID 03/09/18 Cholecalciferol (Vitamin D3) [Vitamin D3] 1,000 unit PO DAILY 03/09/18 Losartan Potassium 25 mg PO BID 03/09/18 Omeprazole 40 mg PO BID 03/09/18 Tiotropium [place] [Spiriva] 1 puffs INH DAILY 03/09/18 Alfuzosin HCl [Alfuzosin HCl ER] 10 mg PO DAILY 04/30/18 metFORMIN [Glucophage] 250 mg PO QDBREAKFAST 04/30/18 Azithromycin [Zithromax] 250 mg PO DAILY 05/02/18 Torsemide 20 mg PO DAILY 05/02/18 predniSONE [Deltasone] 10 mg PO DAILY 05/02/18 Objective - Vital Signs/Intake & Output Reviewed Vital Signs: Yes Vital Signs: Vital Signs Temp Pulse Pulse Resp BP Pulse Ox 05/06/18 10:00 88 23 130/65 93 05/06/18 09:00 92 25 H 131/70 H 88 L 05/06/18 08:00 36.4 C L 77 22 134/80 H 92 05/06/18 07:42 65 21 05/06/18 07:00 62 18 123/65 97 Intake & Output: Intake & Output 05/03/18 05/04/18 05/05/18 05/06/18 23:59 23:59 23:59 23:59 Intake Total 1525 1220 1640 420 Output Total 500 950 850 325 Balance 1025 270 790 95 - Objective General Appearance: positive: Alert, Moderate distress Eyes Bilateral: positive: PERRL, EOMI ENT: positive: Dry mucous membranes Neck: negative: Stiff neck, Carotid bruit Respiratory: positive: Chest non-tender, Other (He has respiratory distress this morning. Yesterday while listening to him, I could hear wheezes and rhonchi, today he is so tight that his lungs are almost silent.He is using his accessory muscles even more than yesterday with chest wall, diaphragm, abdominal muscles. Sternocleidomastoids are not being used, he is not tripoding.) Cardiovascular: positive: Regular rate & rhythm, Other (RV lift is palpable today. Rhythm is now hard and knocking). negative: Gallop/S4, Friction rub Abdomen: positive: Non-tender, Nml bowel sounds, No distention, Other (Huge abdominal pannus). negative: Guarding, Rebound Skin: positive: Warm, Dry Extremities: positive: Non-tender, No pedal edema, Other (Severe onychomycosis involving all the toenails on his feet.) Neurologic/Psychiatric: positive: Oriented x3, CN's nml (2-12), Motor nml - Lab Results Fish Bones: 05/06/18 04:40 05/06/18 04:40 Other Labs: Lab Results x24hrs 05/06/18 05/06/18 05/06/18 Range/Units 07:51 04:40 04:40 WBC 9.1 (4.8-10.8) x10^3/uL RBC 3.42 L (4.70-6.10) 10^6/uL Hgb 10.8 L (14.0-18.0) g/dL Hct 32.3 L (42.0-52.0) % MCV 94.3 H (80.0-94.0) fL MCH 31.4 H (27.0-31.0) pg MCHC 33.4 (32.0-36.0) g/dL RDW 14.7 (12.0-15.0) % Plt Count 159 (130-450) 10^3/uL MPV 8.4 (7.4-11.4) fL Neut # (Auto) 8.2 H (1.5-6.6) 10^3/uL Lymph # (Auto) 0.5 L (1.5-3.5) 10^3/uL Bath # (Auto) 0.4 (0.0-1.0) 10^3/uL Eos # (Auto) 0.0 (0.0-0.7) 10^3/uL Baso # (Auto) 0.0 (0.0-0.1) 10^3/uL Absolute Nucleated RBC 0.01 x10^3/uL Nucleated RBC % 0.1 /100WBC Sodium 137 (135-145) mmol/L Potassium 4.5 (3.5-5.0) mmol/L Chloride 102 (101-111) mmol/L Carbon Dioxide 28 (21-32) mmol/L Anion Gap 7.0 (6-13) BUN 18 (6-20) mg/dL Creatinine 0.6 (0.6-1.2) mg/dL Estimated GFR (MDRD) 134 (>89) Glucose 169 H (70-100) mg/dL POC Whole Bld Glucose 190 H (70 - 100) mg/dL Calcium 8.0 L (8.5-10.3) mg/dL 05/05/18 05/05/18 05/05/18 Range/Units 20:32 20:29 16:53 WBC (4.8-10.8) x10^3/uL RBC (4.70-6.10) 10^6/uL Hgb (14.0-18.0) g/dL Hct (42.0-52.0) % MCV (80.0-94.0) fL MCH (27.0-31.0) pg MCHC (32.0-36.0) g/dL RDW (12.0-15.0) % Plt Count (130-450) 10^3/uL MPV (7.4-11.4) fL Neut # (Auto) (1.5-6.6) 10^3/uL Lymph # (Auto) (1.5-3.5) 10^3/uL Bath # (Auto) (0.0-1.0) 10^3/uL Eos # (Auto) (0.0-0.7) 10^3/uL Baso # (Auto) (0.0-0.1) 10^3/uL Absolute Nucleated RBC x10^3/uL Nucleated RBC % /100WBC Sodium (135-145) mmol/L Potassium (3.5-5.0) mmol/L Chloride (101-111) mmol/L Carbon Dioxide (21-32) mmol/L Anion Gap (6-13) BUN (6-20) mg/dL Creatinine (0.6-1.2) mg/dL Estimated GFR (MDRD) (>89) Glucose (70-100) mg/dL POC Whole Bld Glucose 261 H 235 H 158 H (70 - 100) mg/dL Calcium (8.5-10.3) mg/dL 05/05/18 05/05/18 05/04/18 Range/Units 11:24 07:27 20:05 WBC (4.8-10.8) x10^3/uL RBC (4.70-6.10) 10^6/uL Hgb (14.0-18.0) g/dL Hct (42.0-52.0) % MCV (80.0-94.0) fL MCH (27.0-31.0) pg MCHC (32.0-36.0) g/dL RDW (12.0-15.0) % Plt Count (130-450) 10^3/uL MPV (7.4-11.4) fL Neut # (Auto) (1.5-6.6) 10^3/uL Lymph # (Auto) (1.5-3.5) 10^3/uL Bath # (Auto) (0.0-1.0) 10^3/uL Eos # (Auto) (0.0-0.7) 10^3/uL Baso # (Auto) (0.0-0.1) 10^3/uL Absolute Nucleated RBC x10^3/uL Nucleated RBC % /100WBC Sodium (135-145) mmol/L Potassium (3.5-5.0) mmol/L Chloride (101-111) mmol/L Carbon Dioxide (21-32) mmol/L Anion Gap (6-13) BUN (6-20) mg/dL Creatinine (0.6-1.2) mg/dL Estimated GFR (MDRD) (>89) Glucose (70-100) mg/dL POC Whole Bld Glucose 218 H 170 H 181 H (70 - 100) mg/dL Calcium (8.5-10.3) mg/dL 05/04/18 05/04/18 05/04/18 Range/Units 16:58 11:50 07:48 WBC (4.8-10.8) x10^3/uL RBC (4.70-6.10) 10^6/uL Hgb (14.0-18.0) g/dL Hct (42.0-52.0) % MCV (80.0-94.0) fL MCH (27.0-31.0) pg MCHC (32.0-36.0) g/dL RDW (12.0-15.0) % Plt Count (130-450) 10^3/uL MPV (7.4-11.4) fL Neut # (Auto) (1.5-6.6) 10^3/uL Lymph # (Auto) (1.5-3.5) 10^3/uL Bath # (Auto) (0.0-1.0) 10^3/uL Eos # (Auto) (0.0-0.7) 10^3/uL Baso # (Auto) (0.0-0.1) 10^3/uL Absolute Nucleated RBC x10^3/uL Nucleated RBC % /100WBC Sodium (135-145) mmol/L Potassium (3.5-5.0) mmol/L Chloride (101-111) mmol/L Carbon Dioxide (21-32) mmol/L Anion Gap (6-13) BUN (6-20) mg/dL Creatinine (0.6-1.2) mg/dL Estimated GFR (MDRD) (>89) Glucose (70-100) mg/dL POC Whole Bld Glucose 155 H 204 H 172 H (70 - 100) mg/dL Calcium (8.5-10.3) mg/dL 05/03/18 05/03/18 05/03/18 Range/Units 16:53 11:35 07:11 WBC (4.8-10.8) x10^3/uL RBC (4.70-6.10) 10^6/uL Hgb (14.0-18.0) g/dL Hct (42.0-52.0) % MCV (80.0-94.0) fL MCH (27.0-31.0) pg MCHC (32.0-36.0) g/dL RDW (12.0-15.0) % Plt Count (130-450) 10^3/uL MPV (7.4-11.4) fL Neut # (Auto) (1.5-6.6) 10^3/uL Lymph # (Auto) (1.5-3.5) 10^3/uL Bath # (Auto) (0.0-1.0) 10^3/uL Eos # (Auto) (0.0-0.7) 10^3/uL Baso # (Auto) (0.0-0.1) 10^3/uL Absolute Nucleated RBC x10^3/uL Nucleated RBC % /100WBC Sodium (135-145) mmol/L Potassium (3.5-5.0) mmol/L Chloride (101-111) mmol/L Carbon Dioxide (21-32) mmol/L Anion Gap (6-13) BUN (6-20) mg/dL Creatinine (0.6-1.2) mg/dL Estimated GFR (MDRD) (>89) Glucose (70-100) mg/dL POC Whole Bld Glucose 188 H 138 H 166 H (70 - 100) mg/dL Calcium (8.5-10.3) mg/dL Sepsis Event Note (H) - Evaluation Current Stage of Sepsis: Resolved Assessment/Plan - Problem List (1) Acute exacerbation of COPD with asthma Impression: Very slow to improve. Dyspnea at rest continues. Continue iv steroids, nebs, Mucinex and treating underlying pneumonia. Will order OOB to chair tid, Acappella and IS for better ventilation. Day #4. I anticipated transfer from ICU to med surg today with another 1-2 days on med surg. but will keep him in ICU. Too tenuous. Stop BiPap order. Parameters for O2 already in chart. I willl have him get up and walk once on med surg. (2) CAP (community acquired pneumonia) Assessment/Plan: Continue empiric iv antibiotic. blood cultures neg, izabella in sputum. White cell count on admission was 21.4 thousand. He has been normal since the where he was 10.4. Today he is 9.1.No fever on admission or during his stay. Lactic acid was normal. reponding to treatment so izabella is Probable colonization. I would expect he would not have improved if this were yeast pneumonia. Follow CBC daily. (3) Influenza A Assessment/Plan: He is in respiratory isolation. Tamiflu was not started as he presented > 72 hors from onset of symptoms. (4) DM type 2 (diabetes mellitus, type 2) Assessment/Plan: Selected Entries 05/05/18 05/05/18 05/06/18 17:00 20:36 07:52 Result (mg/dL) 158 235 190 Continue carb controlled diet, ss Insulin for fingerstick glu checks. A1c is 5.8% (6) anemia. Assesment/Plan: While here, his Hgb had dropped. Started at 13 and down to 10. Platelets slightly down as well but not in abnormal range. Check anemia panel. Check stool for FOBT (5) Hx of coronary artery disease Assessment/Plan: Stable on meds. (6) CO2 narcosis Assessment/Plan: Resolved (7) Sepsis Assessment/Plan: Resolved
[2018-05-06] MEDS: SODIUM CHLORIDE FLUSH 0.9% 10 ML SYRINGE IVP SCH ×3 (11:38→21:25)
[2018-05-06 18:19] LABS: ABG PCO2 36 mmHg (34-45); ABG PH 7.55 (7.35-7.45)
[2018-05-06 18:20] LABS: ABG HCO3 31.5 mmol/L (22.0-26.0); ABG OXYGEN SATURATION 95 % (94-98); ABG PO2 67 mmHg (80-100); ALLEN TEST POSITIVE
[2018-05-06] MEDS: ATORVASTATIN 40 MG TABLET PO SCH (20:33)
[2018-05-06] MEDS: CHLORHEXIDINE GLUCONATE 15 ML UDC PO SCH (20:33)
--- NOTE | 2018-05-06 21:34 | XRAY Report ---
Reason: pneumonia with compensatory metabolic alkalosis Procedure Date: 05/06/2018 Accession Number: [id number] / [id number] Procedure: XR - Chest 1 View X-Ray CPT Code: 30458 FULL RESULT: EXAM: CHEST RADIOGRAPHY EXAM DATE: 05/06/2018 09:19 PM. CLINICAL HISTORY: Pneumonia with compensatory metabolic alkalosis. COMPARISON: CHEST 1 VIEW 05/02/2018 12:18 PM. TECHNIQUE: 1 view. FINDINGS: Lungs/Pleura: Small effusions and mild bibasilar airspace disease is seen. The upper lungs remain clear. There is no pneumothorax. Hyperlucency of the left upper lung region is seen suggesting COPD changes Mediastinum: Heart and mediastinal contours are notable for aortic calcification. Other: Median sternotomy wires and surgical clips consistent with CABG is seen. IMPRESSION: Small effusions and mild bibasilar airspace disease which may be related to atelectasis. Superimposed pneumonia is not excluded. [facility]
[2018-05-07] MEDS: LEVALBUTEROL 1.25 MG/3 ML NEB INH PRN ×6 (03:03→22:27)
[2018-05-07] MEDS: SODIUM CHLORIDE FLUSH 0.9% 10 ML SYRINGE IVP PRN ×3 (03:13→07:17)
[2018-05-07] MEDS: MORPHINE 2 MG/ML SYRINGE IVP PRN ×3 (03:13→22:23)
[2018-05-07] MEDS: methylPREDNISolone SUCCINATE 40 MG/ML VIAL IVP SCH ×4 (03:44→22:24)
[2018-05-07 05:12] LABS: CALCIUM 8.4 mg/dL (8.5-10.3); CREATININE 0.7 mg/dL (0.6-1.2)
[2018-05-07] MEDS ORDERED: PANTOPRAZOLE 40 MG VIAL IVP SCH (07:00)
[2018-05-07] MEDS: IPRATROPIUM 0.2 MG/ML NEB INH SCH ×4 (07:14→19:08)
[2018-05-07] MEDS: CEFEPIME 2 GM in SODIUM CHLORIDE 0.9% MINIBAG 100 ML IV SCH ×3 (07:17→23:16)
[2018-05-07] MEDS: INSULIN ASPART 300 UNIT/3 ML PEN SUBQ SCH ×4 (07:36→21:12)
--- NOTE | 2018-05-07 07:48 | PROVIDER PROGRESS NOTE ---
Subjective - Prog Note Date Prog Note Date: 05/07/18 Prog Note Time: 11:32 - Subjective Pt reports feeling: No change Subjective: He has 7 children. So I met his older daughter who was here yesterday. This morning I am meeting his son who would phone in to visit him. He is getting ready to leave to go to the airport and fly back home again. He lives with 1 of his younger daughters. Overall he is about the same as he was yesterday. As long as he is resting, not talking, his respiratory rate is 15-16. Pulse is in the 70s-80s. And he does use his abdominal wall muscles to breathe even at baseline according to the son. Son describes him as relatively sedentary. He does get up and walk around within the house. Friday through Friday he is at home waiting for his daughter to get home. He can get to the bathroom, bathe himself, feed himself but that is about it. Takes a long time for him to recover in between 10-15 steps. Then the daughter will come home. They dinner together. On Saturdays and Sundays that we can get in the car and they usually go grocery shopping or go visit other people. He rarely drives the car by himself. Almost needed to go on BiPap last night. ABG reveiwed. Lawnmower Repair Mechanic did fu CXR to make sure different treatment not needed. Current Medications - Current Medications Current Medications: Active Medications Acetaminophen (Tylenol) 650 mg PO Q4HR PRN PRN Reason: Pain 1 to 4 Alprazolam (Xanax) 0.25 mg PO Q6HR PRN PRN Reason: Anxiety Last Admin: 05/04/18 13:29 Dose: 0.25 mg Aspirin (Ecotrin) 81 mg PO DAILY [facility] Last Admin: 05/07/18 08:15 Dose: 81 mg Atorvastatin Calcium (Lipitor) 40 mg PO QPM [facility] Last Admin: 05/06/18 20:33 Dose: 40 mg Calcium Carbonate/Glycine (Tums) 500 mg PO TID PRN PRN Reason: Heartburn Last Admin: 05/03/18 22:09 Dose: 500 mg Carvedilol (Coreg) 25 mg PO BID [facility] Last Admin: 05/07/18 08:14 Dose: 25 mg Chlorhexidine Gluconate (Peridex) 15 ml PO BID [facility] Last Admin: 05/07/18 09:16 Dose: 15 ml Cholecalciferol (Vitamin D3) 1,000 unit PO DAILY [facility] Last Admin: 05/07/18 08:13 Dose: 1,000 unit Famotidine (Pepcid) 20 mg PO BID [facility] Last Admin: 05/07/18 08:15 Dose: 20 mg Finasteride (Proscar) 5 mg PO DAILY [facility] Last Admin: 05/07/18 08:14 Dose: 5 mg Cefepime HCl 2 gm/ Sodium (Chloride) 100 mls @ 200 mls/hr IV Q8H [facility] Last Infusion: 05/07/18 07:50 Dose: Infused Insulin Aspart (Novolog) 1 - 9 unit SUBQ 0800,1200,1700,2100 [facility]; Protocol Insulin Glargine (Lantus Solostar) 10 unit SUBQ QPM [facility] Ipratropium Bells (Atrovent) 0.5 mg INH RTQ4H [facility] Last Admin: 05/07/18 10:56 Dose: 0.5 mg Levalbuterol HCl (Xopenex) 1.25 mg INH RTQ4H PRN PRN Reason: Dyspnea Last Admin: 05/07/18 10:56 Dose: 1.25 mg Losartan Potassium (Cozaar) 25 mg PO BID [facility] Last Admin: 05/07/18 08:13 Dose: 25 mg Methylprednisolone (Solu-Medrol (40mg Vial)) 40 mg IVP Q6H [facility] Last Admin: 05/07/18 10:07 Dose: 40 mg Mineral Oil (Cavilon) 1 applic TOP PRN PRN PRN Reason: Skin Care Last Admin: 05/02/18 22:09 Dose: 1 applic Morphine Sulfate (Morphine) 2 mg IVP Q2HR PRN PRN Reason: pain or dyspnea Last Admin: 05/07/18 03:13 Dose: 2 mg Multivitamins/Minerals (Theragran M) 1 tab PO DAILYWM [facility] Last Admin: 05/07/18 08:11 Dose: 1 tab Ondansetron HCl (Zofran Inj) 4 mg IVP Q6HR PRN PRN Reason: Nausea / Vomiting Polyethylene Glycol (Miralax) 17 gm PO DAILY [facility] Last Admin: 05/07/18 08:43 Dose: Not Given Saccharomyces Boulardii (Florastor) 250 mg PO BIDWM [facility] Last Admin: 05/07/18 08:11 Dose: 250 mg Sodium Chloride (Normal Saline Flush 0.9%) 10 ml IVP PRN PRN PRN Reason: NEEDED PER PROVIDER ORDERS Last Admin: 05/07/18 07:17 Dose: 10 ml Sodium Chloride (Normal Saline Flush 0.9%) 10 ml IVP 0100,0900,1700 [facility] Last Admin: 05/07/18 10:07 Dose: Not Given Albuterol Sulfate [Proair Hfa Inhaler] 2 puffs INH Q4H PRN 03/09/18 Atorvastatin Calcium 40 mg PO QPM 03/09/18 Budesonide/Formoterol Fumarate [Symbicort 160-4.5 Mcg Inhaler] 1 puffs INH BID 03/09/18 Carvedilol 25 mg PO BID 03/09/18 Cholecalciferol (Vitamin D3) [Vitamin D3] 1,000 unit PO DAILY 03/09/18 Losartan Potassium 25 mg PO BID 03/09/18 Omeprazole 40 mg PO BID 03/09/18 Tiotropium Bells [Spiriva] 1 puffs INH DAILY 03/09/18 Alfuzosin HCl [Alfuzosin HCl ER] 10 mg PO DAILY 04/30/18 metFORMIN [Glucophage] 250 mg PO QDBREAKFAST 04/30/18 Azithromycin [Zithromax] 250 mg PO DAILY 05/02/18 Torsemide 20 mg PO DAILY 05/02/18 predniSONE [Deltasone] 10 mg PO DAILY 05/02/18 Objective - Vital Signs/Intake & Output Reviewed Vital Signs: Yes Vital Signs: Vital Signs x48h Temp Pulse Pulse Resp BP Pulse Ox 05/07/18 07:23 55 L 17 05/07/18 07:00 50 L 17 125/54 L 98 05/07/18 06:00 54 L 16 141/65 H 97 05/07/18 05:00 55 L 16 132/65 H 95 05/07/18 04:00 36.7 C 55 L 18 113/65 95 05/07/18 03:08 59 L 20 134/80 H 94 05/07/18 03:04 64 22 05/07/18 02:00 52 L 17 133/63 H 96 05/07/18 01:00 60 17 125/63 95 05/07/18 00:00 36.7 C 63 18 101/55 L 95 Intake & Output: Intake & Output 05/04/18 05/05/18 05/06/18 05/07/18 23:59 23:59 23:59 23:59 Intake Total 1220 1640 1740 310 Output Total 950 850 950 200 Balance 270 790 790 110 - Objective General Appearance: positive: No acute distress, Alert, Other (Stocky, moderately overweight middle-aged male who looks older than his stated age, who will quickly decompensate with just talking.) Eyes Bilateral: positive: PERRL, EOMI ENT: positive: Dry mucous membranes (He mouth breathes, and because of that has to have the Oxymizer in his mouth) Neck: positive: No JVD. negative: Stiff neck, Carotid bruit Respiratory: positive: Chest non-tender, Wheezes, Other (Yesterday he was very quiet and I almost did not hear any breath sounds whatsoever. Today there seems to be freer air movement, with scant wheezing diffusely at the end of exhalation but he still easily decompensated which is simple talking. Not even getting out of bed. When I come into the room to do advance care planning conversation and speak to his son, the patient's participation resulted in a heart rate in the 90s, respiratory rate in the 20s with just laying in bed talking. He always already using his abdominal muscles to breathe at baseline, and then he starts using his accessory muscles of his chest wall). negative: Rales, Rhonchi Cardiovascular: positive: Regular rate & rhythm. negative: Gallop/S4, Friction rub Abdomen: positive: Non-tender, No organomegaly, Nml bowel sounds, No distention, Other (Large obese abdominal pannus) Skin: positive: Warm, Dry. negative: Diaphoresis, Pallor Extremities: positive: Non-tender, Full ROM, No pedal edema Neurologic/Psychiatric: positive: Oriented x3, CN's nml (2-12), Motor nml - Lab Results Fish Bones: 05/06/18 04:40 05/07/18 04:15 Other Labs: Lab Results x24hrs 05/07/18 05/07/18 05/06/18 Range/Units 07:29 04:15 20:30 Bld Gas Analysis Time Sample Site ABG pH (7.35-7.45) ABG pCO2 (34-45) mmHg ABG pO2 (80-100) mmHg ABG HCO3 (22.0-26.0) mmol/L ABG Total CO2 (21.0-29.0) MMOL/L ABG O2 Saturation (94-98) % ABG Base Excess (-2.0-3.0) mmol/L Jairo Test O2 Delivery Device O2 Liters/Min LPM Sodium 141 (135-145) mmol/L Potassium 4.5 (3.5-5.0) mmol/L Chloride 106 (101-111) mmol/L Carbon Dioxide 29 (21-32) mmol/L Anion Gap 6.0 (6-13) BUN 20 (6-20) mg/dL Creatinine 0.7 (0.6-1.2) mg/dL Estimated GFR (MDRD) 112 (>89) Glucose 195 H (70-100) mg/dL POC Whole Bld Glucose 216 H 229 H (70 - 100) mg/dL Calcium 8.4 L (8.5-10.3) mg/dL 05/06/18 05/06/18 05/06/18 Range/Units 18:05 16:59 11:33 Bld Gas Analysis Time 1616 Sample Site LEFT RADIAL ABG pH 7.55 H (7.35-7.45) ABG pCO2 36 (34-45) mmHg ABG pO2 67 L (80-100) mmHg ABG HCO3 31.5 H (22.0-26.0) mmol/L ABG Total CO2 33.0 H (21.0-29.0) MMOL/L ABG O2 Saturation 95 (94-98) % ABG Base Excess 9.0 H (-2.0-3.0) mmol/L Jairo Test POSITIVE O2 Delivery Device NASAL CANNULA O2 Liters/Min 3.00 LPM Sodium (135-145) mmol/L Potassium (3.5-5.0) mmol/L Chloride (101-111) mmol/L Carbon Dioxide (21-32) mmol/L Anion Gap (6-13) BUN (6-20) mg/dL Creatinine (0.6-1.2) mg/dL Estimated GFR (MDRD) (>89) Glucose (70-100) mg/dL POC Whole Bld Glucose 200 H 270 H (70 - 100) mg/dL Calcium (8.5-10.3) mg/dL 05/06/18 Range/Units 07:51 Bld Gas Analysis Time Sample Site ABG pH (7.35-7.45) ABG pCO2 (34-45) mmHg ABG pO2 (80-100) mmHg ABG HCO3 (22.0-26.0) mmol/L ABG Total CO2 (21.0-29.0) MMOL/L ABG O2 Saturation (94-98) % ABG Base Excess (-2.0-3.0) mmol/L Jairo Test O2 Delivery Device O2 Liters/Min LPM Sodium (135-145) mmol/L Potassium (3.5-5.0) mmol/L Chloride (101-111) mmol/L Carbon Dioxide (21-32) mmol/L Anion Gap (6-13) BUN (6-20) mg/dL Creatinine (0.6-1.2) mg/dL Estimated GFR (MDRD) (>89) Glucose (70-100) mg/dL POC Whole Bld Glucose 190 H (70 - 100) mg/dL Calcium (8.5-10.3) mg/dL - Diagnostic Imaging Diagnostic Imaging Results: positive: Final report reviewed Diagnostic Imaging Comments: EXAM: [id number] ([id number]) Reason: pneumonia with compensatory metabolic alkalosis Procedure Date: 05/06/2018 Accession Number: [id number] / [id number] Procedure: XR - Chest 1 View X-Ray CPT Code: 17288 FULL RESULT: EXAM: CHEST RADIOGRAPHY EXAM DATE: 05/06/2018 09:19 PM. CLINICAL HISTORY: Pneumonia with compensatory metabolic alkalosis. COMPARISON: CHEST 1 VIEW 05/02/2018 12:18 PM. TECHNIQUE: 1 view. FINDINGS: Lungs/Pleura: Small effusions and mild bibasilar airspace disease is seen. The upper lungs remain clear. There is no pneumothorax. Hyperlucency of the left upper lung region is seen suggesting COPD changes Mediastinum: Heart and mediastinal contours are notable for aortic calcification. Other: Median sternotomy wires and surgical clips consistent with CABG is seen. IMPRESSION: Small effusions and mild bibasilar airspace disease which may be related to atelectasis. Superimposed pneumonia is not excluded. Sepsis Event Note (H) - Evaluation Current Stage of Sepsis: Resolved Assessment/Plan - Problem List (1) Acute exacerbation of COPD with asthma Impression: Continues to be slow very slow to improve. Dyspnea at rest continues. Continue iv steroids, nebs, Mucinex and treating underlying pneumonia. Decrease steroid dose today. I ordered OOB to chair tid, Acappella and IS for better ventilation. Hasn't gotten out of bed yet. Hopefully will do so today. Day #5. I anticipated transfer from ICU to med surg 05/06 with another 1-2 days on med surg. but will keep him in ICU. Too tenuous. Stopped BiPap order yesterday morning but renewed them last night. Parameters for O2 already in chart. I will have him get up and walk to chair today. Family and I are coming to conclusion that he will need rehab. He is much more deconditioned now than he is at home. Advanced Care Planning conversation under separate note. (2) CAP (community acquired pneumonia) Assessment/Plan: Continue empiric iv antibiotic.Day #5. Followup CXR without change. blood cultures neg, izabella in sputum. White cell count on admission was 21.4 thousand. He has been normal since the where he was 10.4> 9.1. No fever on admission or during his stay. Lactic acid was normal. reponding to treatment so izabella is probable colonization. I would expect he would not have improved if this were yeast pneumonia. (3) Influenza A Assessment/Plan: He is in respiratory isolation. Tamiflu was not started as he presented > 72 hours from onset of symptoms. (4) DM type 2 (diabetes mellitus, type 2) Assessment/Plan: Selected Entries 05/06/18 05/06/18 05/06/18 07:52 17:07 20:41 Result (mg/dL) 190 200 229 05/07/18 05/07/18 07:36 11:39 Result (mg/dL) 216 242 I will add lantus 10 units at night and decrease steroids. Continue carb controlled diet, ss Insulin for fingerstick glu checks. A1c is 5.8% (6) anemia. Assesment/Plan: While here, his Hgb had dropped. Started at 13 and down to 10. Platelets slightly down as well but not in abnormal range. Check anemia panel. Check stool for FOBT (5) Hx of coronary artery disease Assessment/Plan: Stable on meds. (6) CO2 narcosis Assessment/Plan: Resolved and now with compensatory alkalosis on ABG. (7) Sepsis Assessment/Plan: Resolved
[2018-05-07] MEDS ORDERED: methylPREDNISolone SUCCINATE 40 MG/ML VIAL IVP SCH (08:00)
[2018-05-07] MEDS: SACCHAROMYCES BOULARDII 250 MG CAPSULE PO SCH ×2 (08:11→17:08)
[2018-05-07] MEDS: MULTIVITAMIN W/MINERALS TABLET PO SCH (08:11)
[2018-05-07] MEDS: LOSARTAN 50 MG TABLET PO SCH ×2 (08:13→21:13)
[2018-05-07] MEDS: CHOLECALCIFEROL 1,000 UNIT TABLET PO SCH (08:13)
[2018-05-07] MEDS: CARVEDILOL 12.5 MG TABLET PO SCH ×2 (08:14→21:12)
[2018-05-07] MEDS: FINASTERIDE 5 MG TABLET PO SCH (08:14)
[2018-05-07] MEDS: FAMOTIDINE 20 MG TABLET PO SCH ×2 (08:15→21:12)
[2018-05-07] MEDS: ASPIRIN EC 81 MG TABLET PO SCH (08:15)
[2018-05-07] MEDS: POLYETHYLENE GLYCOL 3350 17 GM PACKET PO SCH (08:43)
[2018-05-07] MEDS: CHLORHEXIDINE GLUCONATE 15 ML UDC PO SCH ×2 (09:16→21:24)
[2018-05-07] MEDS: SODIUM CHLORIDE FLUSH 0.9% 10 ML SYRINGE IVP SCH ×2 (10:07→17:05)
[2018-05-07] MEDS ORDERED: INSULIN ASPART 300 UNIT/3 ML PEN SUBQ SCH (10:46)
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
[2018-05-07 13:00] LABS: ABSOLUTE RETICS # AUTO 0.059 10^6/uL (0.020-0.110); MEAN RETIC VALUE 111.9; RED BLOOD COUNT 3.76 10^6/uL (4.70-6.10)
[2018-05-07 13:20] LABS: % IRON SATURATION 34 % (20-50); FERRITIN 1418.2 ng/mL (23.9-336.2); IRON 58 ug/dL (45-182); TOTAL IRON BINDING CAPACITY 172 ug/dL (250-450); TRANSFERRIN 123 mg/dL (180-329)
[2018-05-07] MEDS: ATORVASTATIN 40 MG TABLET PO SCH (21:13)
[2018-05-07] MEDS: INSULIN GLARGINE 300 UNIT/3 ML PEN SUBQ SCH (21:28)
[2018-05-08] MEDS: SODIUM CHLORIDE FLUSH 0.9% 10 ML SYRINGE IVP SCH ×3 (01:00→16:47)
[2018-05-08] MEDS: MORPHINE 2 MG/ML SYRINGE IVP PRN ×5 (02:12→19:30)
[2018-05-08] MEDS: LEVALBUTEROL 1.25 MG/3 ML NEB INH PRN ×3 (02:15→10:45)
[2018-05-08] MEDS: methylPREDNISolone SUCCINATE 40 MG/ML VIAL IVP SCH ×4 (04:33→22:36)
[2018-05-08] MEDS: IPRATROPIUM 0.2 MG/ML NEB INH SCH ×2 (06:10→10:45)
[2018-05-08] MEDS: CEFEPIME 2 GM in SODIUM CHLORIDE 0.9% MINIBAG 100 ML IV SCH ×3 (06:56→23:33)
[2018-05-08] MEDS: POLYETHYLENE GLYCOL 3350 17 GM PACKET PO SCH (08:15)
[2018-05-08] MEDS: MULTIVITAMIN W/MINERALS TABLET PO SCH (08:18)
[2018-05-08] MEDS: ASPIRIN EC 81 MG TABLET PO SCH (08:18)
[2018-05-08] MEDS: FAMOTIDINE 20 MG TABLET PO SCH ×2 (08:18→20:46)
[2018-05-08] MEDS: CHOLECALCIFEROL 1,000 UNIT TABLET PO SCH (08:18)
[2018-05-08] MEDS: SACCHAROMYCES BOULARDII 250 MG CAPSULE PO SCH ×2 (08:18→17:22)
[2018-05-08] MEDS: FINASTERIDE 5 MG TABLET PO SCH (08:18)
[2018-05-08] MEDS: LOSARTAN 50 MG TABLET PO SCH ×2 (08:19→21:03)
[2018-05-08] MEDS: CARVEDILOL 12.5 MG TABLET PO SCH ×2 (08:19→21:01)
[2018-05-08] MEDS: INSULIN ASPART 300 UNIT/3 ML PEN SUBQ SCH ×4 (08:35→21:03)
[2018-05-08] MEDS: SODIUM CHLORIDE FLUSH 0.9% 10 ML SYRINGE IVP PRN ×4 (10:05→22:36)
[2018-05-08] MEDS: ALPRAZolam 0.25 MG TABLET PO PRN (10:34)
[2018-05-08] MEDS: CHLORHEXIDINE GLUCONATE 15 ML UDC PO SCH ×2 (10:41→22:37)
--- NOTE | 2018-05-08 12:17 | PROVIDER PROGRESS NOTE ---
Subjective - Prog Note Date Prog Note Date: 05/08/18 Prog Note Time: 12:24 - Subjective Subjective: able to get out of bed and get to bedside chair. very weak. gets tachypeic but recovers. From endurance perpective he is not even close to his baseline at home. Current Medications - Current Medications Current Medications: Active Medications Acetaminophen (Tylenol) 650 mg PO Q4HR PRN PRN Reason: Pain 1 to 4 Alprazolam (Xanax) 0.25 mg PO Q6HR PRN PRN Reason: Anxiety Last Admin: 05/08/18 10:34 Dose: 0.25 mg Aspirin (Ecotrin) 81 mg PO DAILY [facility] Last Admin: 05/08/18 08:18 Dose: 81 mg Atorvastatin Calcium (Lipitor) 40 mg PO QPM [facility] Last Admin: 05/07/18 21:13 Dose: 40 mg Calcium Carbonate/Glycine (Tums) 500 mg PO TID PRN PRN Reason: Heartburn Last Admin: 05/03/18 22:09 Dose: 500 mg Carvedilol (Coreg) 25 mg PO BID [facility] Last Admin: 05/08/18 08:19 Dose: 25 mg Chlorhexidine Gluconate (Peridex) 15 ml PO BID [facility] Last Admin: 05/08/18 10:41 Dose: Not Given Cholecalciferol (Vitamin D3) 1,000 unit PO DAILY [facility] Last Admin: 05/08/18 08:18 Dose: 1,000 unit Famotidine (Pepcid) 20 mg PO BID [facility] Last Admin: 05/08/18 08:18 Dose: 20 mg Finasteride (Proscar) 5 mg PO DAILY [facility] Last Admin: 05/08/18 08:18 Dose: 5 mg Cefepime HCl 2 gm/ Sodium (Chloride) 100 mls @ 200 mls/hr IV Q8H [facility] Last Infusion: 05/08/18 07:26 Dose: Infused Insulin Aspart (Novolog) 3 - 11 unit SUBQ 0800,1200,1700,2100 P[facility]; Protocol Insulin Glargine (Lantus Solostar) 10 unit SUBQ QPM [facility] Last Admin: 05/07/18 21:28 Dose: 10 unit Insulin Glargine (Lantus Solostar) 5 unit SUBQ QDBREAKFAST [facility] Ipratropium Alexander (Atrovent) 0.5 mg INH RTQ4H [facility] Last Admin: 05/08/18 10:45 Dose: 0.5 mg Levalbuterol HCl (Xopenex) 1.25 mg INH RTQ4H PRN PRN Reason: Dyspnea Last Admin: 05/08/18 10:45 Dose: 1.25 mg Losartan Potassium (Cozaar) 25 mg PO BID [facility] Last Admin: 05/08/18 08:19 Dose: 25 mg Methylprednisolone (Solu-Medrol (40mg Vial)) 20 mg IVP Q6H [facility] Mineral Oil (Cavilon) 1 applic TOP PRN PRN PRN Reason: Skin Care Last Admin: 05/02/18 22:09 Dose: 1 applic Morphine Sulfate (Morphine) 2 mg IVP Q2HR PRN PRN Reason: pain or dyspnea Last Admin: 05/08/18 10:04 Dose: 2 mg Multivitamins/Minerals (Theragran M) 1 tab PO DAILYWM [facility] Last Admin: 05/08/18 08:18 Dose: 1 tab Ondansetron HCl (Zofran Inj) 4 mg IVP Q6HR PRN PRN Reason: Nausea / Vomiting Polyethylene Glycol (Miralax) 17 gm PO DAILY [facility] Last Admin: 05/08/18 08:15 Dose: 17 gm Saccharomyces Boulardii (Florastor) 250 mg PO BIDWM [facility] Last Admin: 05/08/18 08:18 Dose: 250 mg Sodium Chloride (Normal Saline Flush 0.9%) 10 ml IVP PRN PRN PRN Reason: NEEDED PER PROVIDER ORDERS Last Admin: 05/08/18 10:05 Dose: 10 ml Sodium Chloride (Normal Saline Flush 0.9%) 10 ml IVP 0100,0900,1700 [facility] Last Admin: 05/08/18 10:11 Dose: Not Given Albuterol Sulfate [Proair Hfa Inhaler] 2 puffs INH Q4H PRN 03/09/18 Atorvastatin Calcium 40 mg PO QPM 03/09/18 Budesonide/Formoterol Fumarate [Symbicort 160-4.5 Mcg Inhaler] 1 puffs INH BID 03/09/18 Carvedilol 25 mg PO BID 03/09/18 Cholecalciferol (Vitamin D3) [Vitamin D3] 1,000 unit PO DAILY 03/09/18 Losartan Potassium 25 mg PO BID 03/09/18 Omeprazole 40 mg PO BID 03/09/18 Tiotropium Alexander [Spiriva] 1 puffs INH DAILY 03/09/18 Alfuzosin HCl [Alfuzosin HCl ER] 10 mg PO DAILY 04/30/18 metFORMIN [Glucophage] 250 mg PO QDBREAKFAST 04/30/18 Azithromycin [Zithromax] 250 mg PO DAILY 05/02/18 Torsemide 20 mg PO DAILY 05/02/18 predniSONE [Deltasone] 10 mg PO DAILY 05/02/18 Objective - Vital Signs/Intake & Output Reviewed Vital Signs: Yes Vital Signs: Vital Signs x48h Temp Pulse Pulse Resp BP Pulse Ox 05/08/18 10:45 92 20 05/08/18 07:50 36.6 C 60 19 93 05/08/18 07:00 57 L 15 124/61 96 05/08/18 06:10 70 19 05/08/18 06:00 52 L 14 141/68 H 100 05/08/18 05:00 52 L 14 122/67 97 Intake & Output: Intake & Output 05/05/18 05/06/18 05/07/18 05/08/18 23:59 23:59 23:59 23:59 Intake Total 1640 1740 2390 680 Output Total 116 681 0196 725 Balance 077 607 1922 -45 - Objective General Appearance: positive: Alert, Mild distress (using acessory abd muscles at rest and no talking) Eyes Bilateral: positive: PERRL ENT: positive: Dry mucous membranes (open mouth breathing quite a bit) Neck: positive: No JVD. negative: Stiff neck, Carotid bruit Respiratory: positive: Chest non-tender, Wheezes. negative: Rales, Rhonchi Cardiovascular: positive: Regular rate & rhythm. negative: Gallop/S4, Friction rub Abdomen: positive: Non-tender, No organomegaly, Nml bowel sounds, No distention Skin: positive: Warm, Dry, Other (ecchymoses of arms and antecubital fossa) Extremities: positive: No pedal edema Neurologic/Psychiatric: positive: Oriented x3, CN's nml (2-12), Motor nml, Weakness - Lab Results Fish Bones: 05/06/18 04:40 05/07/18 04:15 Other Labs: Lab Results x24hrs 05/08/18 05/08/1819 Range/Units 12:05 07:39 20:59 RBC (4.70-6.10) 10^6/uL Reticulocyte % (Auto) (0.5-2.3) % Absolute Retic (0.020-0.110) 10^6/uL POC Whole Bld Glucose 273 H 188 H 273 H (70 - 100) mg/dL Iron (45-182) ug/dL TIBC (250-450) ug/dL % Saturation (20-50) % Transferrin (180-329) mg/dL Ferritin (23.9-336.2) ng/mL Lactate Dehydrogenase (91-225) IU/L Vitamin B12 (180-914) pg/mL 05/07/18 05/07/18 05/07/18 Range/Units 16:51 12:37 12:37 RBC (4.70-6.10) 10^6/uL Reticulocyte % (Auto) (0.5-2.3) % Absolute Retic (0.020-0.110) 10^6/uL POC Whole Bld Glucose 259 H (70 - 100) mg/dL Iron (45-182) ug/dL TIBC (250-450) ug/dL % Saturation (20-50) % Transferrin (180-329) mg/dL Ferritin 1418.2 H (23.9-336.2) ng/mL Lactate Dehydrogenase 372 H (91-225) IU/L Vitamin B12 584 (180-914) pg/mL 05/07/18 05/07/18 Range/Units 12:37 12:37 RBC 3.76 L (4.70-6.10) 10^6/uL Reticulocyte % (Auto) 1.57 (0.5-2.3) % Absolute Retic 0.059 (0.020-0.110) 10^6/uL POC Whole Bld Glucose (70 - 100) mg/dL Iron 58 (45-182) ug/dL TIBC 172 L (250-450) ug/dL % Saturation 34 (20-50) % Transferrin 123 L (180-329) mg/dL Ferritin (23.9-336.2) ng/mL Lactate Dehydrogenase (91-225) IU/L Vitamin B12 (180-914) pg/mL ABX Reporting Has patient been on IV antibiotics over the past 48 hours?: Yes Sepsis Event Note (H) - Evaluation Current Stage of Sepsis: Resolved Assessment/Plan - Problem List (1) Acute exacerbation of COPD with asthma Impression: Continues to be slow very slow to improve. Dyspnea at rest continues. Continue iv steroids, nebs, Mucinex and treating underlying pneumonia. Decrease steroid dose yesterday from 60 to 40, today decrease from 40 to 20 I ordered OOB to chair tid, Acappella and IS for better ventilation. Hasn't gotten out of bed yet. Hopefully will do so today. Day #6. I anticipated transfer from ICU to med surg 3 with another 1-2 days on med surg. but kept him in ICU. Too tenuous. Transfer to Med Surg today. Stopped BiPap order 3 morning but renewed them 3/ pm bc got severely sob. Didn't need it. Parameters for O2 already in chart. Stable over the course of 05/07 but weak, 2 assists. Able to stand and step 1 to chair w 2 assists. Family and I are coming to conclusion that he will need rehab. He is much more deconditioned now than he is at home. Advanced Care Planning conversation under separate note. Plan is for dc today of SNF for rehab will accept him. (2) CAP (community acquired pneumonia) Assessment/Plan: Continue empiric iv antibiotic.Day #6. Followup CXR without change. blood cultures neg, izabella in sputum. White cell count on admission was 21.4 thousand. He has been normal since the where he was 10.4> 9.1. No fever on admission or during his stay. Lactic acid was normal. reponding to treatment so izabella is probable colonization. I would expect he would not have improved if this were yeast pneumonia. (3) Influenza A Assessment/Plan: He is in respiratory isolation. Tamiflu was not started as he presented > 72 hours from onset of symptoms. (4) DM type 2 (diabetes mellitus, type 2) Assessment/Plan: Laboratory Tests 05/06/18 05/06/18 05/06/18 07:51 11:33 16:59 POC Whole Bld Glucose 190 H 270 H 200 H 05/06/18 05/07/18 05/07/18 20:30 07:29 11:20 POC Whole Bld Glucose 229 H 216 H 242 H 0305/07/18 05/08/18 16:51 20:59 07:39 POC Whole Bld Glucose 259 H 273 H 188 H 05/08/18 12:05 POC Whole Bld Glucose 273 H I added lantus 10 units at night and decreased steroids. Continue carb controlled diet, ss Insulin for fingerstick glu checks. A1c is 5.8%. Will increase lantus to bid (6) anemia. Assesment/Plan: While here, his Hgb had dropped. Started at 13 and down to 10. Platelets slightly down as well but not in abnormal range. Laboratory Tests 05/07/18 05/07/18 05/07/18 12:37 12:37 12:37 RBC 3.76 L Reticulocyte % (Auto) 1.57 Absolute Retic 0.059 Iron 58 TIBC 172 L % Saturation 34 Transferrin 123 L Ferritin 1418.2 H Lactate Dehydrogenase Vitamin B12 584 05/07/18 12:37 RBC Reticulocyte % (Auto) Absolute Retic Iron TIBC % Saturation Transferrin Ferritin Lactate Dehydrogenase 372 H Vitamin B12 (5) Hx of coronary artery disease Assessment/Plan: Stable on meds. (6) CO2 narcosis Assessment/Plan: Resolved and now with compensatory alkalosis on ABG. (7) Sepsis Assessment/Plan: Resolved
[2018-05-08] MEDS: MIN OIL/DIMETHICON/COCONUT OIL 92 GM TUBE TOP PRN (12:28)
[2018-05-08] MEDS: IPRATROPIUM/ALBUTEROL 3 ML NEB INH PRN ×2 (15:40→19:32)
[2018-05-08] MEDS: ATORVASTATIN 40 MG TABLET PO SCH (20:46)
[2018-05-08] MEDS: INSULIN GLARGINE 300 UNIT/3 ML PEN SUBQ SCH (21:01)
[2018-05-09] MEDS: IPRATROPIUM/ALBUTEROL 3 ML NEB INH PRN ×4 (00:15→18:21)
[2018-05-09] MEDS: MORPHINE SOL 10 MG/0.5 ML SYRINGE PO PRN ×2 (03:50→07:22)
[2018-05-09] MEDS: methylPREDNISolone SUCCINATE 40 MG/ML VIAL IVP SCH ×2 (03:53→10:09)
[2018-05-09] MEDS: SODIUM CHLORIDE FLUSH 0.9% 10 ML SYRINGE IVP SCH ×3 (03:54→17:18)
[2018-05-09] MEDS: CEFEPIME 2 GM in SODIUM CHLORIDE 0.9% MINIBAG 100 ML IV SCH (06:50)
--- NOTE | 2018-05-09 07:19 | PROVIDER PROGRESS NOTE ---
Subjective - Prog Note Date Prog Note Date: 05/09/18 Prog Note Time: 07:21 - Subjective Subjective: He really does not want to get out of bed. He says that just rolling around in bed trying to get himself reposition resulted in severe respiratory distress and he starts to feel like he is suffocating. That in turn causes panic and he needs Ativan and morphine to calm him down. I am gradually de-escalating his steroids. Respiratory therapy asked that he be changed from Xopenex to albuterol yesterday and that was done. Today is day 7 of antibiotics. Otherwise he is with severe dyspnea on exertion. Stabilized since admission but still below the baseline of what he does at home. Current Medications - Current Medications Current Medications: Active Medications Acetaminophen (Tylenol) 650 mg PO Q4HR PRN PRN Reason: Pain 1 to 4 Albuterol/Ipratropium (Duoneb) 3 ml INH RTQID PRN PRN Reason: Shortness of Air/Wheezing Last Admin: 05/09/18 00:15 Dose: 3 ml Alprazolam (Xanax) 0.25 mg PO Q6HR PRN PRN Reason: Anxiety Last Admin: 05/08/18 10:34 Dose: 0.25 mg Aspirin (Ecotrin) 81 mg PO DAILY [facility] Last Admin: 05/08/18 08:18 Dose: 81 mg Atorvastatin Calcium (Lipitor) 40 mg PO QPM [facility] Last Admin: 05/08/18 20:46 Dose: 40 mg Calcium Carbonate/Glycine (Tums) 500 mg PO TID PRN PRN Reason: Heartburn Last Admin: 05/03/18 22:09 Dose: 500 mg Carvedilol (Coreg) 25 mg PO BID [facility] Last Admin: 05/08/18 21:01 Dose: 25 mg Chlorhexidine Gluconate (Peridex) 15 ml PO BID [facility] Last Admin: 05/08/18 22:37 Dose: Not Given Cholecalciferol (Vitamin D3) 1,000 unit PO DAILY [facility] Last Admin: 05/08/18 08:18 Dose: 1,000 unit Famotidine (Pepcid) 20 mg PO BID [facility] Last Admin: 05/08/18 20:46 Dose: 20 mg Finasteride (Proscar) 5 mg PO DAILY [facility] Last Admin: 05/08/18 08:18 Dose: 5 mg Cefepime HCl 2 gm/ Sodium (Chloride) 100 mls @ 200 mls/hr IV Q8H [facility] Last Admin: 05/09/18 06:50 Dose: 200 mls/hr Insulin Aspart (Novolog) 3 - 11 unit SUBQ 0800,1200,1700,2100 [facility]; Protocol Last Admin: 05/08/18 21:03 Dose: 7 unit Insulin Glargine (Lantus Solostar) 10 unit SUBQ QPM [facility] Last Admin: 05/08/18 21:01 Dose: 10 unit Insulin Glargine (Lantus Solostar) 5 unit SUBQ QDBREAKFAST [facility] Losartan Potassium (Cozaar) 25 mg PO BID [facility] Last Admin: 05/08/18 21:03 Dose: 25 mg Methylprednisolone (Solu-Medrol (40mg Vial)) 20 mg IVP Q6H [facility] Last Admin: 05/09/18 03:53 Dose: 20 mg Mineral Oil (Cavilon) 1 applic TOP PRN PRN PRN Reason: Skin Care Last Admin: 05/08/18 12:28 Dose: 1 applic Morphine Sulfate (Morphine) 2 mg IVP Q2HR PRN PRN Reason: pain or dyspnea Last Admin: 05/08/18 19:30 Dose: 2 mg Morphine Sulfate (Roxanol) 10 mg PO Q2HR PRN PRN Reason: PAIN Last Admin: 05/09/18 03:50 Dose: 10 mg Multivitamins/Minerals (Theragran M) 1 tab PO DAILYWM [facility] Last Admin: 05/08/18 08:18 Dose: 1 tab Ondansetron HCl (Zofran Inj) 4 mg IVP Q6HR PRN PRN Reason: Nausea / Vomiting Polyethylene Glycol (Miralax) 17 gm PO DAILY [facility] Last Admin: 05/08/18 08:15 Dose: 17 gm Saccharomyces Boulardii (Florastor) 250 mg PO BIDWM [facility] Last Admin: 05/08/18 17:22 Dose: 250 mg Sodium Chloride (Normal Saline Flush 0.9%) 10 ml IVP PRN PRN PRN Reason: NEEDED PER PROVIDER ORDERS Last Admin: 05/08/18 22:36 Dose: 10 ml Sodium Chloride (Normal Saline Flush 0.9%) 10 ml IVP 0100,0900,1700 [facility] Last Admin: 05/09/18 03:54 Dose: 10 ml Albuterol Sulfate [Proair Hfa Inhaler] 2 puffs INH Q4H PRN 03/09/18 Atorvastatin Calcium 40 mg PO QPM 03/09/18 Budesonide/Formoterol Fumarate [Symbicort 160-4.5 Mcg Inhaler] 1 puffs INH BID 03/09/18 Carvedilol 25 mg PO BID 03/09/18 Cholecalciferol (Vitamin D3) [Vitamin D3] 1,000 unit PO DAILY 03/09/18 Losartan Potassium 25 mg PO BID 03/09/18 Omeprazole 40 mg PO BID 03/09/18 Tiotropium Grundy [Spiriva] 1 puffs INH DAILY 03/09/18 Alfuzosin HCl [Alfuzosin HCl ER] 10 mg PO DAILY 04/30/18 metFORMIN [Glucophage] 250 mg PO QDBREAKFAST 04/30/18 Azithromycin [Zithromax] 250 mg PO DAILY 05/02/18 Torsemide 20 mg PO DAILY 05/02/18 predniSONE [Deltasone] 10 mg PO DAILY 05/02/18 Objective - Vital Signs/Intake & Output Reviewed Vital Signs: Yes Vital Signs: Vital Signs x48h Temp Pulse Pulse Resp BP Pulse Ox 05/09/18 05:00 36.6 C 95 24 161/75 H 93 05/09/18 01:00 95 24 161/75 H 93 05/09/18 00:16 69 18 Intake & Output: Intake & Output 05/06/18 05/07/18 05/08/18 05/09/18 23:59 23:59 23:59 23:59 Intake Total 1740 2390 1810 260 Output Total 950 1050 875 150 Balance 790 1340 935 110 - Objective General Appearance: positive: No acute distress, Mild distress (Is in bed watching the TV with his kids. Occasionally has spontaneous laughter but that causes him to be short of breath.) Eyes Bilateral: positive: PERRL ENT: positive: Dry mucous membranes, Other (Edentulous) Neck: positive: No JVD. negative: Stiff neck, Carotid bruit Respiratory: positive: Chest non-tender, No respiratory distress (At rest. But he is right. When I have him sit up to listen to his lungs, he increases his use of accessory muscles.), Wheezes. negative: Rales, Rhonchi Cardiovascular: positive: Regular rate & rhythm. negative: Gallop/S4, Friction rub Abdomen: positive: Non-tender, No organomegaly, Nml bowel sounds, No distention Skin: positive: Warm, Dry Neurologic/Psychiatric: positive: Oriented x3, CN's nml (2-12), Motor nml, Weakness (Generalized, and getting worse because he just does not have the energy to get up and move and he is basically bedbound) - Lab Results Fish Bones: 05/06/18 04:40 05/07/18 04:15 Other Labs: Lab Results x24hrs 05/08/18 05/08/18 05/08/18 Range/Units 20:58 16:40 12:05 POC Whole Bld Glucose 264 H 191 H 273 H (70 - 100) mg/dL 05/08/18 Range/Units 07:39 POC Whole Bld Glucose 188 H (70 - 100) mg/dL ABX Reporting Has patient been on IV antibiotics over the past 48 hours?: Yes Sepsis Event Note (H) - Evaluation Current Stage of Sepsis: Resolved Assessment/Plan - Problem List (1) Acute exacerbation of COPD with asthma Impression: Continues to be slow very slow to improve. Dyspnea at rest continues. Very deconditioned and not at his baseline. Continue iv steroids, nebs, Mucinex and treating underlying pneumonia. Decrease steroid dose yesterday from 60 to 40, today decrease from 40 to 20 I ordered OOB to chair tid, Acappella and IS for better ventilation. Hasn't gotten out of bed yet. Hopefully will do so today. Day # here. I anticipated transfer from ICU to med surg 05/06 with another 1-2 days on med surg. but kept him in ICU. Too tenuous. Transfer to Med Surg 05/08 Stopped BiPap order 05/06 morning but renewed them 05/06 pm bc got severely sob. Didn't need it. Parameters for O2 already in chart. Stable over the course of 05/07 but weak, 2 assists. Able to stand and step 1 to chair w 2 assists but didn't want to get out of bed 05/08. Family and I are coming to conclusion that he will need rehab. He is much more deconditioned now than he is at home. Advanced Care Planning conversation under separate note. Plan is for dc 05/08 of SNF for rehab but [facility] negotiated with a SNF that will not take him until 05/11. Today I will ask that he get out of bed. We have asked for [facility] but [facility] a [facility] mail and we haven't spoken to a life body. Respiratory will continue to work on this even if the patient is discharged. RT says to read their notes. (2) CAP (community acquired pneumonia) Assessment/Plan: Continued empiric iv antibiotic for 7 days now. Followup CXR without change. blood cultures neg, izabella in sputum. White cell count on admission was 21.4 thousand. He has been normal since the where he was 10.4> 9.1. No fever on admission or during his stay. Lactic acid was normal. Reponding to treatment so izabella is probable colonization. I would expect he would not have improved if this were yeast pneumonia. He will have been on abx for 7 days today, will discontinue after today. (3) Influenza A Assessment/Plan: He is in respiratory isolation and can be removed. Tamiflu was not started as he presented > 72 hours from onset of symptoms. (4) DM type 2 (diabetes mellitus, type 2) Assessment/Plan: Laboratory Tests 05/06/18 05/06/18 05/06/18 07:51 11:33 16:59 POC Whole Bld Glucose 190 H 270 H 200 H 05/06/18 05/07/18 05/07/18 20:30 07:29 11:20 POC Whole Bld Glucose 229 H 216 H 242 H 05/07/18 05/07/18 05/08/18 16:51 20:59 07:39 POC Whole Bld Glucose 259 H 273 H 188 H 05/08/18 12:05 POC Whole Bld Glucose 273 H Laboratory Tests 05/08/18 05/08/18 16:40 20:58 POC Whole Bld Glucose 191 H 264 H I added lantus 10 units at night and decreased steroids. then I added lantus to am today. so 10 and night, 5 in am. Continue carb controlled diet, ss Insulin for fingerstick glu checks. A1c is 5.8%. will watch glucose since steroids being tapered since glucose may go down (6) anemia. Assesment/Plan: While here, his Hgb had dropped. Started at 13 and down to 10. Platelets slightly down as well but not in abnormal range. Laboratory Tests 05/07/18 05/07/18 05/07/18 12:37 12:37 12:37 RBC 3.76 L Reticulocyte % (Auto) 1.57 Absolute Retic 0.059 Iron 58 TIBC 172 L % Saturation 34 Transferrin 123 L Ferritin 1418.2 H Lactate Dehydrogenase Vitamin B12 584 05/07/18 12:37 RBC Reticulocyte % (Auto) Absolute Retic Iron TIBC % Saturation Transferrin Ferritin Lactate Dehydrogenase 372 H Vitamin B12 (5) Hx of coronary artery disease Assessment/Plan: Stable on meds. (6) CO2 narcosis Assessment/Plan: Resolved and now with compensatory alkalosis on ABG. (7) Sepsis Assessment/Plan: Resolved
[2018-05-09] MEDS: POLYETHYLENE GLYCOL 3350 17 GM PACKET PO SCH (08:15)
[2018-05-09] MEDS: CARVEDILOL 12.5 MG TABLET PO SCH ×2 (08:17→22:02)
[2018-05-09] MEDS: FINASTERIDE 5 MG TABLET PO SCH (08:17)
[2018-05-09] MEDS: ASPIRIN EC 81 MG TABLET PO SCH (08:18)
[2018-05-09] MEDS: MULTIVITAMIN W/MINERALS TABLET PO SCH (08:18)
[2018-05-09] MEDS: FAMOTIDINE 20 MG TABLET PO SCH ×2 (08:18→22:02)
[2018-05-09] MEDS: SACCHAROMYCES BOULARDII 250 MG CAPSULE PO SCH ×2 (08:18→17:18)
[2018-05-09] MEDS: CHOLECALCIFEROL 1,000 UNIT TABLET PO SCH (08:18)
[2018-05-09] MEDS: INSULIN GLARGINE 300 UNIT/3 ML PEN SUBQ SCH ×2 (08:43→22:01)
[2018-05-09] MEDS: INSULIN ASPART 300 UNIT/3 ML PEN SUBQ SCH ×4 (08:44→22:01)
[2018-05-09] MEDS: ALBUTEROL NEB 2.5 MG/3 ML INH PRN ×4 (09:58→22:11)
[2018-05-09] MEDS: LOSARTAN 50 MG TABLET PO SCH ×2 (10:08→22:02)
[2018-05-09] MEDS: SODIUM CHLORIDE FLUSH 0.9% 10 ML SYRINGE IVP PRN (10:10)
[2018-05-09] MEDS: MIN OIL/DIMETHICON/COCONUT OIL 92 GM TUBE TOP PRN (12:06)
[2018-05-09] MEDS: methylPREDNISolone 4 MG TABLET PO SCH (17:18)
[2018-05-09] MEDS: ATORVASTATIN 40 MG TABLET PO SCH (22:02)
[2018-05-10] MEDS: SODIUM CHLORIDE FLUSH 0.9% 10 ML SYRINGE IVP SCH ×3 (00:46→17:37)
[2018-05-10] MEDS: ALBUTEROL NEB 2.5 MG/3 ML INH PRN ×6 (01:02→19:56)
[2018-05-10 05:49] LABS: BASOPHILS % (AUTO) 0.3 %; HGB - HEMOGLOBIN 11.6 g/dL (14.0-18.0); LYMPHOCYTES # (AUTO) 1.3 10^3/uL (1.5-3.5); LYMPHOCYTES % (AUTO) 8.2 %; MEAN CORPUSCULAR HEMOGLOBIN 30.9 pg (27.0-31.0); MEAN CORPUSCULAR HGB CONC 32.9 g/dL (32.0-36.0); MEAN CORPUSCULAR VOLUME 93.9 fL (80.0-94.0); MEAN PLATELET VOLUME 8.7 fL (7.4-11.4); MONOCYTES % (AUTO) 6.1 %; NEUTROPHILS # (AUTO) 13.4 10^3/uL (1.5-6.6); NEUTROPHILS % (AUTO) 85.4 %; PLT - PLATELET COUNT 199 10^3/uL (130-450); RED BLOOD COUNT 3.74 10^6/uL (4.70-6.10); RED CELL DISTRIBUTION WIDTH 15.1 % (12.0-15.0); WHITE BLOOD COUNT 15.7 x10^3/uL (4.8-10.8)
[2018-05-10 05:58] LABS: CALCIUM 8.8 mg/dL (8.5-10.3); CREATININE 0.5 mg/dL (0.6-1.2)
[2018-05-10] MEDS: INSULIN ASPART 300 UNIT/3 ML PEN SUBQ SCH ×4 (08:16→21:24)
[2018-05-10] MEDS: INSULIN GLARGINE 300 UNIT/3 ML PEN SUBQ SCH ×2 (08:17→21:26)
[2018-05-10] MEDS: SACCHAROMYCES BOULARDII 250 MG CAPSULE PO SCH ×2 (08:18→17:37)
[2018-05-10] MEDS: LOSARTAN 50 MG TABLET PO SCH ×2 (08:18→21:28)
[2018-05-10] MEDS: FINASTERIDE 5 MG TABLET PO SCH (08:18)
[2018-05-10] MEDS: methylPREDNISolone 4 MG TABLET PO SCH ×3 (08:18→17:37)
[2018-05-10] MEDS: CHOLECALCIFEROL 1,000 UNIT TABLET PO SCH (08:18)
[2018-05-10] MEDS: AZITHROMYCIN 250 MG TABLET PO SCH (08:18)
[2018-05-10] MEDS: CARVEDILOL 12.5 MG TABLET PO SCH ×2 (08:18→21:27)
[2018-05-10] MEDS: FAMOTIDINE 20 MG TABLET PO SCH ×2 (08:19→21:27)
[2018-05-10] MEDS: ASPIRIN EC 81 MG TABLET PO SCH (08:19)
[2018-05-10] MEDS: MULTIVITAMIN W/MINERALS TABLET PO SCH (08:19)
[2018-05-10] MEDS: POLYETHYLENE GLYCOL 3350 17 GM PACKET PO SCH (08:20)
[2018-05-10] MEDS: IPRATROPIUM/ALBUTEROL 3 ML NEB INH PRN (09:43)
[2018-05-10] MEDS: ALPRAZolam 0.25 MG TABLET PO PRN (09:57)
--- NOTE | 2018-05-10 11:07 | PROVIDER PROGRESS NOTE ---
Subjective - Prog Note Date Prog Note Date: 05/10/18 Prog Note Time: 11:08 - Subjective Pt reports feeling: Worse Subjective: He was kept in the ICU was administered border for the last 2 days because his COPD status was so tenuous. But he was felt stable enough to be transferred to the floor this morning. He has high anxiety, and was relying on the morphine to calm him down. I asked the nurses to please avoid using the morphine and use alprazolam instead. He also wanted the albuterol increase to every 2 hours because of his panic and his shortness of breath. And that was done yesterday. I also stop his antibiotics after yesterday since he completed 7 days. And has been tapering his steroids steadily over the last 3 days. Today, in the late morning around 10:00, he has become increasingly panic stricken with his dyspnea on exertion. He did get out of bed into a chair but he said it was all he could do and it wiped him out while he sat in the chair and ate breakfast. He is now severely short of breath. No fever, but white cell count is elevated again. Current Medications - Current Medications Current Medications: Active Medications Acetaminophen (Tylenol) 650 mg PO Q4HR PRN PRN Reason: Pain 1 to 4 Albuterol () 2.5 mg INH Q2H PRN PRN Reason: Wheezing Last Admin: 05/10/18 06:22 Dose: 2.5 mg Albuterol/Ipratropium (Duoneb) 3 ml INH RTQID PRN PRN Reason: Shortness of Air/Wheezing Last Admin: 05/10/18 09:43 Dose: 3 ml Alprazolam (Xanax) 0.25 mg PO Q6HR PRN PRN Reason: Anxiety Last Admin: 05/10/18 09:57 Dose: 0.25 mg Aspirin (Ecotrin) 81 mg PO DAILY [facility] Last Admin: 05/10/18 08:19 Dose: 81 mg Atorvastatin Calcium (Lipitor) 40 mg PO QPM [facility]EE Last Admin: 05/09/18 22:02 Dose: 40 mg Azithromycin (Zithromax) 250 mg PO DAILY [facility]EE Last Admin: 05/10/18 08:18 Dose: 250 mg Calcium Carbonate/Glycine (Tums) 500 mg PO TID PRN PRN Reason: Heartburn Last Admin: 05/03/18 22:09 Dose: 500 mg Carvedilol (Coreg) 25 mg PO BID [facility] Last Admin: 05/10/18 08:18 Dose: 25 mg Cholecalciferol (Vitamin D3) 1,000 unit PO DAILY [facility] Last Admin: 05/10/18 08:18 Dose: 1,000 unit Famotidine (Pepcid) 20 mg PO BID [facility] Last Admin: 05/10/18 08:19 Dose: 20 mg Finasteride (Proscar) 5 mg PO DAILY [facility] Last Admin: 05/10/18 08:18 Dose: 5 mg Cefepime HCl 2 gm/ Sodium (Chloride) 100 mls @ 200 mls/hr IV BID [facility] Insulin Aspart (Novolog) 3 - 11 unit SUBQ 0800,1200,1700,2100 [facility]; Protocol Last Admin: 05/10/18 08:16 Dose: Not Given Insulin Glargine (Lantus Solostar) 10 unit SUBQ QPM [facility] Last Admin: 05/09/18 22:01 Dose: 10 unit Insulin Glargine (Lantus Solostar) 5 unit SUBQ QDBREAKFAST [facility] Last Admin: 05/10/18 08:17 Dose: 5 unit Losartan Potassium (Cozaar) 25 mg PO BID [facility] Last Admin: 05/10/18 08:18 Dose: 25 mg Methylprednisolone (Medrol) 4 mg PO TIDWM [facility] Last Admin: 05/10/18 08:18 Dose: 4 mg Methylprednisolone (Solu-Medrol (40mg Vial)) 40 mg IVP TID [facility] Mineral Oil (Cavilon) 1 applic TOP PRN PRN PRN Reason: Skin Care Last Admin: 05/09/18 12:06 Dose: 1 applic Morphine Sulfate (Morphine) 2 mg IVP Q2HR PRN PRN Reason: pain or dyspnea Last Admin: 05/08/18 19:30 Dose: 2 mg Multivitamins/Minerals (Theragran M) 1 tab PO DAILYWM [facility] Last Admin: 05/10/18 08:19 Dose: 1 tab Ondansetron HCl (Zofran Inj) 4 mg IVP Q6HR PRN PRN Reason: Nausea / Vomiting Polyethylene Glycol (Miralax) 17 gm PO DAILY [facility] Last Admin: 05/10/18 08:20 Dose: Not Given Saccharomyces Boulardii (Florastor) 250 mg PO BIDWM [facility] Last Admin: 05/10/18 08:18 Dose: 250 mg Sodium Chloride (Normal Saline Flush 0.9%) 10 ml IVP PRN PRN PRN Reason: NEEDED PER PROVIDER ORDERS Last Admin: 05/09/18 10:10 Dose: 10 ml Sodium Chloride (Normal Saline Flush 0.9%) 10 ml IVP 0100,0900,1700 [facility] Last Admin: 05/10/18 08:19 Dose: 10 ml Albuterol Sulfate [Proair Hfa Inhaler] 2 puffs INH Q4H PRN 03/09/18 Atorvastatin Calcium 40 mg PO QPM 03/09/18 Budesonide/Formoterol Fumarate [Symbicort 160-4.5 Mcg Inhaler] 1 puffs INH BID 03/09/18 Carvedilol 25 mg PO BID 03/09/18 Cholecalciferol (Vitamin D3) [Vitamin D3] 1,000 unit PO DAILY 03/09/18 Losartan Potassium 25 mg PO BID 03/09/18 Omeprazole 40 mg PO BID 03/09/18 Tiotropium [place] [Spiriva] 1 puffs INH DAILY 03/09/18 Alfuzosin HCl [Alfuzosin HCl ER] 10 mg PO DAILY 04/30/18 metFORMIN [Glucophage] 250 mg PO QDBREAKFAST 04/30/18 Azithromycin [Zithromax] 250 mg PO DAILY 05/02/18 Torsemide 20 mg PO DAILY 05/02/18 predniSONE [Deltasone] 10 mg PO DAILY 05/02/18 Objective - Vital Signs/Intake & Output Reviewed Vital Signs: Yes Vital Signs: Vital Signs x48h Pulse Pulse Resp Pulse Ox 05/10/18 10:02 101 H 91 L 05/10/18 09:43 86 22 05/10/18 06:24 58 L 18 05/10/18 03:47 77 18 Intake & Output: Intake & Output 05/07/18 05/08/18 05/09/18 05/10/18 23:59 23:59 23:59 23:59 Intake Total 2390 1810 1200 480 Output Total 6492 587 5138 805 Balance 1340 935 60 -325 - Objective General Appearance: positive: Alert, Moderate distress (From shortness of breath) Eyes Bilateral: positive: PERRL ENT: positive: Pharynx nml Neck: positive: No JVD. negative: Stiff neck, Carotid bruit Respiratory: positive: Chest non-tender, Other (His chest has very, very quiet breath sounds. Almost silent.He is tripoding). negative: Wheezes (But severely prolonged inhalation and exhalation ratio at 1-5. He is using his chest wall muscles and abdominal muscles and sternocleidomastoids for accessory breathing), Rales, Rhonchi Cardiovascular: positive: Regular rate & rhythm, Tachycardia. negative: Gallop/S4, Friction rub Abdomen: positive: Non-tender, No organomegaly, Nml bowel sounds, No distention Skin: positive: Warm, Dry Extremities: positive: Full ROM, No pedal edema Neurologic/Psychiatric: positive: Oriented x3, CN's nml (2-12), Motor nml, Weakness - Lab Results Fish Bones: 05/10/18 05:30 05/10/18 05:30 Other Labs: Lab Results x24hrs 05/10/18 05/10/18 05/10/18 Range/Units 07:49 05:30 05:30 WBC 15.7 H (4.8-10.8) x10^3/uL RBC 3.74 L (4.70-6.10) 10^6/uL Hgb 11.6 L (14.0-18.0) g/dL Hct 35.1 L (42.0-52.0) % MCV 93.9 (80.0-94.0) fL MCH 30.9 (27.0-31.0) pg MCHC 32.9 (32.0-36.0) g/dL RDW 15.1 H (12.0-15.0) % Plt Count 199 (130-450) 10^3/uL MPV 8.7 (7.4-11.4) fL Neut # (Auto) 13.4 H (1.5-6.6) 10^3/uL Lymph # (Auto) 1.3 L (1.5-3.5) 10^3/uL [place] # (Auto) 1.0 (0.0-1.0) 10^3/uL Eos # (Auto) 0.0 (0.0-0.7) 10^3/uL Baso # (Auto) 0.0 (0.0-0.1) 10^3/uL Absolute Nucleated RBC 0.02 x10^3/uL Nucleated RBC % 0.1 /100WBC Sodium 139 (135-145) mmol/L Potassium 4.7 (3.5-5.0) mmol/L Chloride 99 L (101-111) mmol/L Carbon Dioxide 34 H (21-32) mmol/L Anion Gap 6.0 (6-13) BUN 16 (6-20) mg/dL Creatinine 0.5 L (0.6-1.2) mg/dL Estimated GFR (MDRD) 166 (>89) Glucose 108 H (70-100) mg/dL POC Whole Bld Glucose 82 (70 - 100) mg/dL Calcium 8.8 (8.5-10.3) mg/dL 05/09/18 05/09/18 05/09/18 Range/Units 20:34 16:59 11:48 WBC (4.8-10.8) x10^3/uL RBC (4.70-6.10) 10^6/uL Hgb (14.0-18.0) g/dL Hct (42.0-52.0) % MCV (80.0-94.0) fL MCH (27.0-31.0) pg MCHC (32.0-36.0) g/dL RDW (12.0-15.0) % Plt Count (130-450) 10^3/uL MPV (7.4-11.4) fL Neut # (Auto) (1.5-6.6) 10^3/uL Lymph # (Auto) (1.5-3.5) 10^3/uL [place] # (Auto) (0.0-1.0) 10^3/uL Eos # (Auto) (0.0-0.7) 10^3/uL Baso # (Auto) (0.0-0.1) 10^3/uL Absolute Nucleated RBC x10^3/uL Nucleated RBC % /100WBC Sodium (135-145) mmol/L Potassium (3.5-5.0) mmol/L Chloride (101-111) mmol/L Carbon Dioxide (21-32) mmol/L Anion Gap (6-13) BUN (6-20) mg/dL Creatinine (0.6-1.2) mg/dL Estimated GFR (MDRD) (>89) Glucose (70-100) mg/dL POC Whole Bld Glucose 172 H 204 H 255 H (70 - 100) mg/dL Calcium (8.5-10.3) mg/dL ABX Reporting Has patient been on IV antibiotics over the past 48 hours?: Yes Sepsis Event Note (H) - Evaluation Current Stage of Sepsis: Resolved Assessment/Plan - Problem List (1) Acute exacerbation of COPD with asthma Impression: Has been very slow to improve. He was initially transferred from the floor to the ICU to need BiPAP. Was on and off BiPAP for 48 hours. Eventually taken off BiPAP. Stayed in the ICU because of tenuous status. Yesterday he completed 7 days of antibiotics, and I had him on a tapering course of steroids. He was moved from the ICU to [facility]. Today he has taken a step back, with severe increased shortness of breath, elevated white cell count and worsening hypoxia.Very deconditioned and not at his baseline. I will stop tapering his steroids and resume 40 mg Solu-Medrol 3 times daily Continue Mucinex Resume cefepime. I had him on azithromycin for maintenance therapy in a patient with chronic COPD and effort to reduce risk of rehospitalization. I will continue that. [facility] to [facility] I have ordered morphine but would like to use it sparingly. He does find Roxanol helps a lot but right now I have him on morphine IV. I will also continue alprazolam 3 times daily as needed I ordered OOB to chair tid, Acappella and IS for better ventilation. Has been getting out of bed with nursing and physical therapy but it is all he can do to keep on breathing because he gets severely dyspneic on exertion Day #9 here. Family and I are coming to conclusion that he will need rehab. He is much more deconditioned now than he is at home. Advanced Care Planning conversation under separate note. Plan is for dc to SNF for rehab but [facility] with a SNF that will not take him until 05/11. (2) CAP (community acquired pneumonia) Assessment/Plan: Completed empiric iv antibiotic for 7 days on 05/09. Followup CXR without change. blood cultures neg, izabella in sputum. White cell count on admission was 21.4 thousand. He has been normal since the where he was 10.4> 9.1. No fever on admission or during his stay. Lactic acid was normal. Today WBC back up to 15K with tapered steroids and off abx for 18 hours. Will resume Cefepime today. (3) Influenza A Assessment/Plan: He is in respiratory isolation and can be removed. Tamiflu was not started as he presented > 72 hours from onset of symptoms. (4) DM type 2 (diabetes mellitus, type 2) Assessment/Plan: Selected Entries 05/09/18 05/09/18 05/09/18 08:00 11:59 17:00 Result (mg/dL) 168 255 204 05/09/18 05/10/18 20:38 08:00 Result (mg/dL) 172 82 I added lantus 10 units at night and decreased steroids. Then I added lantus in am 05/09 so 10 and night, 5 in am. Continue carb controlled diet, ss Insulin for fingerstick glu checks. A1c is 5.8%. (6) anemia. Assesment/Plan: While here, his Hgb had dropped. Started at 13 and down to 10. Platelets slightly down as well but not in abnormal range. Laboratory Tests 05/07/18 05/07/18 05/07/18 12:37 12:37 12:37 RBC 3.76 L Reticulocyte % (Auto) 1.57 Absolute Retic 0.059 Iron 58 TIBC 172 L % Saturation 34 Transferrin 123 L Ferritin 1418.2 H Lactate Dehydrogenase Vitamin B12 584 05/07/18 12:37 RBC Reticulocyte % (Auto) Absolute Retic Iron TIBC % Saturation Transferrin Ferritin Lactate Dehydrogenase 372 H Vitamin B12 (5) Hx of coronary artery disease Assessment/Plan: Stable on meds. (6) CO2 narcosis Assessment/Plan: Resolved and now with compensatory alkalosis on ABG. (7) Sepsis Assessment/Plan: Resolved
[2018-05-10] MEDS ORDERED: SODIUM CHLORIDE 0.9% 500 ML IV ONE (11:51)
[2018-05-10] MEDS: CEFEPIME 2 GM in SODIUM CHLORIDE 0.9% MINIBAG 100 ML IV SCH ×2 (11:53→21:14)
[2018-05-10] MEDS: SODIUM CHLORIDE FLUSH 0.9% 10 ML SYRINGE IVP PRN ×3 (14:09→22:02)
[2018-05-10] MEDS: methylPREDNISolone SUCCINATE 40 MG/ML VIAL IVP SCH ×2 (14:09→22:02)
[2018-05-10] MEDS: ATORVASTATIN 40 MG TABLET PO SCH (21:27)
[2018-05-11] MEDS: ALBUTEROL NEB 2.5 MG/3 ML INH PRN ×3 (00:01→21:48)
[2018-05-11] MEDS: ALPRAZolam 0.25 MG TABLET PO PRN (01:28)
[2018-05-11] MEDS: SODIUM CHLORIDE FLUSH 0.9% 10 ML SYRINGE IVP SCH ×2 (01:33→05:40)
[2018-05-11] MEDS: methylPREDNISolone SUCCINATE 40 MG/ML VIAL IVP SCH ×3 (05:40→22:35)
[2018-05-11] MEDS: SACCHAROMYCES BOULARDII 250 MG CAPSULE PO SCH ×2 (08:22→18:27)
[2018-05-11] MEDS: FAMOTIDINE 20 MG TABLET PO SCH ×2 (08:22→22:35)
[2018-05-11] MEDS: methylPREDNISolone 4 MG TABLET PO SCH ×3 (08:22→18:27)
[2018-05-11] MEDS: FINASTERIDE 5 MG TABLET PO SCH (08:22)
[2018-05-11] MEDS: LOSARTAN 50 MG TABLET PO SCH ×2 (08:22→22:49)
[2018-05-11] MEDS: AZITHROMYCIN 250 MG TABLET PO SCH (08:23)
[2018-05-11] MEDS: CARVEDILOL 12.5 MG TABLET PO SCH ×2 (08:23→22:34)
[2018-05-11] MEDS: MULTIVITAMIN W/MINERALS TABLET PO SCH (08:23)
[2018-05-11] MEDS: CHOLECALCIFEROL 1,000 UNIT TABLET PO SCH (08:23)
[2018-05-11] MEDS: ASPIRIN EC 81 MG TABLET PO SCH (08:23)
[2018-05-11] MEDS: CEFEPIME 2 GM in SODIUM CHLORIDE 0.9% MINIBAG 100 ML IV SCH ×2 (08:24→22:34)
[2018-05-11] MEDS: POLYETHYLENE GLYCOL 3350 17 GM PACKET PO SCH (08:24)
[2018-05-11] MEDS: INSULIN ASPART 300 UNIT/3 ML PEN SUBQ SCH ×4 (08:32→22:39)
[2018-05-11] MEDS: INSULIN GLARGINE 300 UNIT/3 ML PEN SUBQ SCH ×2 (08:32→22:44)
[2018-05-11] MEDS: IPRATROPIUM/ALBUTEROL 3 ML NEB INH PRN ×2 (08:45→18:00)
[2018-05-11] MEDS: SODIUM CHLORIDE FLUSH 0.9% 10 ML SYRINGE IVP PRN ×3 (13:50→21:29)
--- NOTE | 2018-05-11 15:53 | PROVIDER PROGRESS NOTE ---
Subjective - Prog Note Date Prog Note Date: 05/11/18 Prog Note Time: 17:52 - Subjective Pt reports feeling: Improved Subjective: Yesterday was rough for him. On the at 7 antibiotics, started tapering his steroids. On the morning of the he decompensated. Was having terrible panic attacks with increasing shortness of breath. He did not become hypoxic. I contemplated resuming morphine for sedation, but ended up using benzodiazepines, resuming IV steroids, resuming IV antibiotics and he is better today. He is exceedingly dyspneic with minimal exertion. Getting out of bed his exhaustion for him. His baseline at home is to be able to sit, stand, walk a few feet with his walker. Probably no more than 5-10 feet at a time. He would like to get back to that baseline to go back to living with his daughter. Current Medications - Current Medications Current Medications: Active Medications Acetaminophen (Tylenol) 650 mg PO Q4HR PRN PRN Reason: Pain 1 to 4 Albuterol () 2.5 mg INH Q2H PRN PRN Reason: Wheezing Last Admin: 05/11/18 04:49 Dose: 2.5 mg Albuterol/Ipratropium (Duoneb) 3 ml INH RTQID PRN PRN Reason: Shortness of Air/Wheezing Last Admin: 05/11/18 08:45 Dose: 3 ml Alprazolam (Xanax) 0.25 mg PO Q6HR PRN PRN Reason: Anxiety Last Admin: 05/11/18 01:28 Dose: 0.25 mg Aspirin (Ecotrin) 81 mg PO DAILY [facility] Last Admin: 05/11/18 08:23 Dose: 81 mg Atorvastatin Calcium (Lipitor) 40 mg PO QPM [facility] Last Admin: 05/10/18 21:27 Dose: 40 mg Azithromycin (Zithromax) 250 mg PO DAILY [facility] Last Admin: 05/11/18 08:23 Dose: 250 mg Calcium Carbonate/Glycine (Tums) 500 mg PO TID PRN PRN Reason: Heartburn Last Admin: 05/03/18 22:09 Dose: 500 mg Carvedilol (Coreg) 25 mg PO BID [facility] Last Admin: 05/11/18 08:23 Dose: 25 mg Cholecalciferol (Vitamin D3) 1,000 unit PO DAILY [facility] Last Admin: 05/11/18 08:23 Dose: 1,000 unit Famotidine (Pepcid) 20 mg PO BID [facility] Last Admin: 05/11/18 08:22 Dose: 20 mg Finasteride (Proscar) 5 mg PO DAILY [facility] Last Admin: 05/11/18 08:22 Dose: 5 mg Cefepime HCl 2 gm/ Sodium (Chloride) 100 mls @ 200 mls/hr IV BID [facility] Last Infusion: 05/11/18 09:13 Dose: Infused Insulin Aspart (Novolog) 3 - 11 unit SUBQ 0800,1200,1700,2100 [facility]; Protocol Last Admin: 05/11/18 12:00 Dose: 7 unit Insulin Glargine (Lantus Solostar) 10 unit SUBQ QPM [facility] Last Admin: 05/10/18 21:26 Dose: 10 unit Insulin Glargine (Lantus Solostar) 5 unit SUBQ QDBREAKFAST [facility] Last Admin: 05/11/18 08:32 Dose: 5 unit Losartan Potassium (Cozaar) 25 mg PO BID [facility] Last Admin: 05/11/18 08:22 Dose: 25 mg Methylprednisolone (Medrol) 4 mg PO TIDWM [facility] Last Admin: 05/11/18 12:00 Dose: 4 mg Methylprednisolone (Solu-Medrol (40mg Vial)) 40 mg IVP TID [facility] Last Admin: 05/11/18 13:50 Dose: 40 mg Mineral Oil (Cavilon) 1 applic TOP PRN PRN PRN Reason: Skin Care Last Admin: 05/09/18 12:06 Dose: 1 applic Morphine Sulfate (Morphine) 2 mg IVP Q2HR PRN PRN Reason: pain or dyspnea Last Admin: 05/08/18 19:30 Dose: 2 mg Multivitamins/Minerals (Theragran M) 1 tab PO DAILYWM [facility] Last Admin: 05/11/18 08:23 Dose: 1 tab Nystatin (Mycostatin) 5 ml PO QID [facility] Ondansetron HCl (Zofran Inj) 4 mg IVP Q6HR PRN PRN Reason: Nausea / Vomiting Polyethylene Glycol (Miralax) 17 gm PO DAILY [facility] Last Admin: 05/11/18 08:24 Dose: Not Given Saccharomyces Boulardii (Florastor) 250 mg PO BIDWM [facility] Last Admin: 05/11/18 08:22 Dose: 250 mg Sodium Chloride (Normal Saline Flush 0.9%) 10 ml IVP PRN PRN PRN Reason: NEEDED PER PROVIDER ORDERS Last Admin: 05/11/18 13:50 Dose: 10 ml Sodium Chloride (Normal Saline Flush 0.9%) 10 ml IVP 0100,0900,1700 [facility] Last Admin: 05/11/18 05:40 Dose: 10 ml Albuterol Sulfate [Proair Hfa Inhaler] 2 puffs INH Q4H PRN 03/09/18 Budesonide/Formoterol Fumarate [Symbicort 160-4.5 Mcg Inhaler] 1 puffs INH BID 03/09/18 Cholecalciferol (Vitamin D3) [Vitamin D3] 1,000 unit PO DAILY 03/09/18 RX: Atorvastatin Calcium 40 mg PO QPM 03/09/18 RX: Carvedilol 25 mg PO BID 03/09/18 RX: Losartan Potassium 25 mg PO BID 03/09/18 RX: Omeprazole 40 mg PO BID 03/09/18 Tiotropium [place] [Spiriva] 1 puffs INH DAILY 03/09/18 Alfuzosin HCl [Alfuzosin HCl ER] 10 mg PO DAILY 04/30/18 metFORMIN [Glucophage] 250 mg PO QDBREAKFAST 04/30/18 RX: Azithromycin [Zithromax] 250 mg PO DAILY 05/02/18 RX: Torsemide 20 mg PO DAILY 05/02/18 RX: predniSONE [Deltasone] 10 mg PO DAILY 05/02/18 Objective - Vital Signs/Intake & Output Reviewed Vital Signs: Yes Vital Signs: Vital Signs x48h Temp Pulse Pulse Resp BP Pulse Ox 05/11/18 15:46 36.5 C 79 18 136/85 H 97 05/11/18 08:48 103 H 20 05/11/18 08:00 36.5 C 86 18 126/90 H 95 Intake & Output: Intake & Output 05/08/18 05/09/18 05/10/18 05/11/18 23:59 23:59 23:59 23:59 Intake Total 1810 1200 1090 830 Output Total 875 1140 1970 300 Balance 935 60 -880 530 - Objective General Appearance: positive: No acute distress, Alert, Other (Sitting up in bed, watching [employer] [place]. Comfortable sitting there. Does tend to tripod and put his left elbow on the chair and he leans forward to do that tripod position and put his right hand on top of his right thigh. He is clear eyed) Eyes Bilateral: positive: PERRL, EOMI ENT: positive: Dry mucous membranes (Does a lot of mouth breathing), Other (Edentulous) Neck: positive: No JVD. negative: Stiff neck, Carotid bruit Respiratory: positive: Chest non-tender, Wheezes (Are very rare now.), Other (Breath sounds are really hard to hear. You can hear faint scant wheezing at end exhalation with a ratio of 1-5. Not moving much air.). negative: Rales, Rhonchi Cardiovascular: positive: Regular rate & rhythm, Systolic murmur. negative: Gallop/S4, Friction rub Abdomen: positive: Non-tender, No organomegaly, Nml bowel sounds, No distention Skin: positive: Warm, Dry Extremities: positive: Full ROM, No pedal edema Neurologic/Psychiatric: positive: Oriented x3, CN's nml (2-12), Motor nml (But very weak and deconditioned) - Lab Results Fish Bones: 05/10/18 05:30 05/10/18 05:30 Other Labs: Lab Results x24hrs 05/11/18 05/11/18 05/10/18 Range/Units 11:07 07:24 20:56 POC Whole Bld Glucose 230 H 158 H 233 H (70 - 100) mg/dL 05/10/18 Range/Units 16:37 POC Whole Bld Glucose 145 H (70 - 100) mg/dL ABX Reporting Has patient been on IV antibiotics over the past 48 hours?: Yes Sepsis Event Note (H) - Evaluation Current Stage of Sepsis: Resolved Assessment/Plan - Problem List (1) End stage chronic obstructive pulmonary disease Impression: With chronic respiratory failure. Has been very slow to improve. He was initially transferred from the floor to the ICU to need BiPAP. Was on and off BiPAP for 48 hours. Eventually taken off BiPAP because it wasn't making much of an improvement in the long run. Stayed in the ICU because of tenuous status. Yesterday he completed 7 days of antibiotics, and I had him on a tapering course of steroids. He was moved from the ICU to [facility]. Yesterday he took a step back, with severe increased shortness of breath, elevated white cell count and worsening hypoxia. Still Very deconditioned and not at his baseline. I resumed 40 mg Solu-Medrol 3 times daily 05/10 pm Continued Mucinex Resumed cefepime. I had him on azithromycin for maintenance therapy in a patient with chronic COPD and effort to reduce risk of rehospitalization. I will continue that. We continue to seek [facility] for a Trilogy [facility] since he has failed BiPap and will need something at home to keep in comfortable with his chronic hypoxia. I have ordered morphine but would like to use it sparingly. He does find Roxanol helps a lot but right now I have him on morphine IV. I will also continue alprazolam 3 times daily as needed I ordered OOB to chair tid, Acappella and IS for better ventilation. Has been getting out of bed with nursing and physical therapy but it is all he can do to keep on breathing because he gets severely dyspneic on exertion Day #10 here. Family and I are coming to conclusion that he will need rehab. He is much more deconditioned now than he is at home. Advanced Care Planning conversation under separate note. Plan is for dc to SNF for rehab but his [facility] negotiated with a SNF that was to take him today, but they have not reached an agreement. Hopefully tomorrow can be discharged. (2) CAP (community acquired pneumonia) Assessment/Plan: Completed empiric iv antibiotic for 7 days on 05/09. Followup CXR without rizzo e. blood cultures neg, izabella in sputum. White cell count on admission was 21.4 thousand. He has been normal since the where he was 10.4> 9.1. No fever on admission or during his stay. Lactic acid was normal. On 05/10 his WBC went back up to 15K with tapered steroids and off abx for 18 hours. Resumed Cefepime today. Since mouth jhon is growing izabella, I will start Nystatin swish and spit. (3) Influenza A Assessment/Plan: He is in respiratory isolation and that can be removed by now I would think. Tamiflu was not started as he presented > 72 hours from onset of symptoms. (4) DM type 2 (diabetes mellitus, type 2) Assessment/Plan: Selected Entries 05/09/18 05/09/18 05/09/18 08:00 11:59 17:00 Result (mg/dL) 168 255 204 05/09/18 05/10/18 20:38 08:00 Result (mg/dL) 172 82 Laboratory Tests 05/11/18 05/11/18 05/11/18 07:24 11:07 16:52 POC Whole Bld Glucose 158 H 230 H 134 H I added lantus 10 units at night and decreased steroids. Then I added lantus in am 05/09 so 10 and night, 5 in am. Continue carb controlled diet, ss Insulin for fingerstick glu checks. A1c is 5.8%. (6) anemia. Assesment/Plan: While here, his Hgb had dropped. Started at 13 and down to 10. Platelets slightly down as well but not in abnormal range. Laboratory Tests 05/07/18 05/07/18 05/07/18 12:37 12:37 12:37 RBC 3.76 L Reticulocyte % (Auto) 1.57 Absolute Retic 0.059 Iron 58 TIBC 172 L % Saturation 34 Transferrin 123 L Ferritin 1418.2 H Lactate Dehydrogenase Vitamin B12 584 (7) Izabella of mouth Nystatin swish and spit started. He does not have izabella pneumonia.
[2018-05-11] MEDS: NYSTATIN 500000 UNITS/5 ML UDC PO SCH ×2 (18:27→22:52)
[2018-05-11] MEDS: MORPHINE 2 MG/ML SYRINGE IVP PRN (21:29)
[2018-05-11] MEDS: ATORVASTATIN 40 MG TABLET PO SCH (22:34)
[2018-05-12] MEDS: SODIUM CHLORIDE FLUSH 0.9% 10 ML SYRINGE IVP SCH ×2 (00:26→05:33)
[2018-05-12] MEDS ORDERED: ALBUTEROL NEB 2.5 MG/3 ML INH PRN (00:30)
[2018-05-12] MEDS: methylPREDNISolone SUCCINATE 40 MG/ML VIAL IVP SCH ×2 (05:33→14:00)
[2018-05-12 06:10] LABS: CALCIUM 8.4 mg/dL (8.5-10.3); CREATININE 0.5 mg/dL (0.6-1.2)
[2018-05-12 06:11] LABS: BASOPHILS % (AUTO) 0.2 %; HGB - HEMOGLOBIN 11.5 g/dL (14.0-18.0); LYMPHOCYTES # (AUTO) 0.9 10^3/uL (1.5-3.5); LYMPHOCYTES % (AUTO) 4.6 %; MEAN CORPUSCULAR HEMOGLOBIN 31.3 pg (27.0-31.0); MEAN CORPUSCULAR HGB CONC 33.2 g/dL (32.0-36.0); MEAN CORPUSCULAR VOLUME 94.2 fL (80.0-94.0); MONOCYTES # (AUTO) 0.7 10^3/uL (0.0-1.0); MONOCYTES % (AUTO) 3.6 %; NEUTROPHILS # (AUTO) 17.2 10^3/uL (1.5-6.6); NEUTROPHILS % (AUTO) 91.6 %; PLT - PLATELET COUNT 195 10^3/uL (130-450); RED BLOOD COUNT 3.68 10^6/uL (4.70-6.10); RED CELL DISTRIBUTION WIDTH 14.9 % (12.0-15.0); WHITE BLOOD COUNT 18.7 x10^3/uL (4.8-10.8)
[2018-05-12] MEDS ORDERED: BUDESONIDE 0.5 MG/2 ML NEB INH SCH (07:00)
[2018-05-12] MEDS ORDERED: FORMOTEROL FUMARATE NEB 20 MCG/2 ML INH SCH (07:00)
[2018-05-12] MEDS: IPRATROPIUM/ALBUTEROL 3 ML NEB INH PRN ×2 (07:30→12:00)
[2018-05-12] MEDS: ALPRAZolam 0.25 MG TABLET PO PRN (07:56)
[2018-05-12] MEDS ORDERED: MORPHINE 2 MG/ML SYRINGE IVP PRN (08:48)
[2018-05-12 08:59] VITALS: BP 115/61
[2018-05-12] MEDS: CEFEPIME 2 GM in SODIUM CHLORIDE 0.9% MINIBAG 100 ML IV SCH (09:08)
[2018-05-12] MEDS: SACCHAROMYCES BOULARDII 250 MG CAPSULE PO SCH (09:09)
[2018-05-12] MEDS: MULTIVITAMIN W/MINERALS TABLET PO SCH (09:10)
[2018-05-12] MEDS: LOSARTAN 50 MG TABLET PO SCH (09:10)
[2018-05-12] MEDS: CHOLECALCIFEROL 1,000 UNIT TABLET PO SCH (09:10)
[2018-05-12] MEDS: AZITHROMYCIN 250 MG TABLET PO SCH (09:10)
[2018-05-12] MEDS: FAMOTIDINE 20 MG TABLET PO SCH (09:10)
[2018-05-12] MEDS: ASPIRIN EC 81 MG TABLET PO SCH (09:10)
[2018-05-12] MEDS: CARVEDILOL 12.5 MG TABLET PO SCH (09:10)
[2018-05-12] MEDS: FINASTERIDE 5 MG TABLET PO SCH (09:10)
[2018-05-12] MEDS: methylPREDNISolone 4 MG TABLET PO SCH ×2 (09:10→12:36)
[2018-05-12] MEDS: POLYETHYLENE GLYCOL 3350 17 GM PACKET PO SCH (09:11)
[2018-05-12] MEDS: INSULIN GLARGINE 300 UNIT/3 ML PEN SUBQ SCH (09:20)
[2018-05-12] MEDS: INSULIN ASPART 300 UNIT/3 ML PEN SUBQ SCH ×2 (09:21→12:26)
--- NOTE | 2018-05-12 10:10 | Discharge Plan ---
"Discharge Plan for SNF / PEDRO - Discharge Plan And Transition Orders Disposition: 03 SNF DC/Xfer Condition: Poor Allergies and Adverse Reactions: Allergies Allergy/AdvReac Type Severity Reaction Status Date / Time buspirone [From BuSpar] Allergy Intermediate Respiratory Verified 05/02/18 12:00 - SNF / INTERMEDIATE Transition Orders Admit to (Facility): [facility] in [place] Discharge Diagnosis: 1) Sepsis, resolved 2) CO2 narcosis, resolved 3) COPD exacerbation 4) Severe COPD 5) Community acquired pneumonia 6) Influenza A infection, completed Tamiflu course 7) DM type 2 8) Gayathri of mouth 9) Anemia of chronic disease 10) Hx of GERD 11) Hx of HTN 12) Hx of CABG 13) Code Status: DNR Medicare Certification Statement: I certify that [facility] care is medically necessary on a continuing basis for any of the conditions for which she/he is receiving care during hospitalization. Notify PCP of admission and forward orders to primary provider for signature. Weight on admission and: Weekly Call PCP immediately if weight increases by: 5 kg Other Notification Orders: Call PCP immediately if patient develops dyspnea, chest pain/tightness or edema. House Bowel Program: Yes Additional Bowel Program Orders: If no BM after 2 days, nurse may give M.O.M. 30ml PO PRN and/or ducolax Supp 1 CT and/or CHRIS 250mg P.O., and/or senna 1-2 tabs PO. On day 3 nurse may give repeat above order until residents constipation is resolved. Annual Influenza Vaccine (between Oct 18 and May 17): Yes Two-step PPD per [facility] [id number] or approved exception documents: Yes Oxygen Orders: 3 or 4L O2 per nasal cannula continuously. Trilogy mask pending. Medication Orders: PLEASE REFER TO THE DISCHARGE MEDICATION LIST. Insulin Orders?: Yes - Medications New Prescriptions: Alfuzosin HCl [Alfuzosin HCl ER] 10 mg PO DAILY #30 tab.er.24h Atorvastatin [Lipitor] 40 mg PO QPM #30 tablet Azithromycin [Zithromax] 250 mg PO DAILY #7 tablet Budesonide [Pulmicort] 0.5 mg INH RTBID #60 neb Calcium Carbonate [Tums (Calcium Carbonate 500mg)] 500 mg PO TID PRN #90 tablet PRN Reason: Heartburn Carvedilol 25 mg PO BID #60 tablet Cholecalciferol (Vitamin D3) [Vitamin D3] 1,000 unit PO DAILY #30 capsule Famotidine [Pepcid] 20 mg PO BID #60 tablet Finasteride 5 mg PO DAILY #30 tablet Formoterol Fumarate [Perforomist] 20 mcg INH RTBID #60 neb Insulin Aspart [NovoLOG] 3 - 11 unit SUBQ 0800,1200,1700,2100 #4 pen Insulin Glargine [Lantus Solostar] 10 unit SUBQ QPM #2 pen Insulin Glargine [Lantus Solostar] 5 unit SUBQ QDBREAKFAST #2 pen Ipratropium/Albuterol [Duoneb] 3 ml INH RTQID PRN #120 neb PRN Reason: Shortness Of Air/Wheezing Losartan [Cozaar] 25 mg PO BID #30 tablet methylPREDNISolone [Medrol] 4 mg PO TIDWM #90 tablet Multivitamin W/Minerals [Theragran M] 1 tab PO DAILYWM #30 tablet Nystatin [Nystop] 5 ml PO TID #1 bottle Saccharomyces Boulardii [Florastor] 250 mg PO BID #14 capsule Tiotropium [place] [Spiriva] 1 puffs INH DAILY #30 cap.w.dev - Diet Type: Carb-controlled, 4 carbs, evening meal Texture: Regular Liquids: Thin May have monthly special meal: Yes - Therapies | Activity Therapy: Evaluation | Treat if indicated: PT, OT Rehabilitation Potential: Maximize functional status Activity: Activity as Tolerated Weight Bearing: Full Weight Assistance Devices: Walker Additional Instructions: You were admitted for Influenza A, Community Acquired pneumonia, and worsening of your COPD (emphysema). You are being discharged for strengthening with Rehab at a [facility]. Follow Up: Follow up with your PCP, Dr Marcie Mg, after the Rehab has discharged you. Insulin Orders - SNF Basal | Correction | Custom Orders: Diagnosis: Diabetes Initiate hypo and hyperglycemia protocols for BG <70 and BG >375. May check BG PRN for signs/symptoms of dysglycemia. Frequency of BG checks: [AC/Meal/HS] Basal Insulin: [X] Lantus 100 units / ml inject subq as follows: 5 U sq daily in am AND 10 U sq every evening Correction Insulin: - Select the type of insulin below [Choose: Novolog/Humalog]100 units /ml insulin inject subq per orders indicate below [] LOW DOSE [X] MODERATE DOSE [] MODERATE/HIGH DOSE [] HIGH DOSE GB UNITS GB UNITS GB UNITS GB UNITS 61-140 0 UNITS 61-140 0 UNITS 61-140 0 UNITS 61-140 0 UNITS 141-175 1 UNITS 141-175 1 UNITS 141-175 2 UNITS 141-175 3 UNITS 176-225 2 UNITS 176-225 3 UNITS 176-225 4 UNITS 176-225 5 UNITS 226-275 3 UNITS 226-275 5 UNITS 226-275 6 UNITS 226-275 7 UNITS 276-325 4 UNITS 276-325 7 UNITS 276-325 8 UNITS 276-325 9 UNITS 326-375 5 UNITS 326-375 9 UNITS 326-375 10 UNITS 326-375 11 UNITS >375 CONTACT MD >375 CONTACT MD >375 CONTACT MD >375 CONTACT MD"
[2018-05-12] MEDS: NYSTATIN 500000 UNITS/5 ML UDC PO SCH ×2 (12:30→14:00)
--- NOTE | 2018-05-13 02:27 | DISCHARGE SUMMARY ---
Physician: Urmila Aguero MD DATE OF ADMISSION: 05/02/2018 DATE OF DISCHARGE: 05/12/2018 HISTORY OF PRESENT ILLNESS: This is a 67-year-old white male with a history of severe COPD, on oxygen continuously at home at 3 liters by nasal cannula, history of hypertension, GERD and coronary artery disease with remote bypass surgery. The patient presented with respiratory distress. Of note, this was his ninth visit to this emergency room in the past 6 months, some requiring admission for COPD exacerbations. In the ER, he had rapidly worsening mental status and became obtunded. An arterial blood gas was drawn that showed CO2 elevation. He was felt to have CO2 narcosis. He was admitted to the ICU for BiPAP management and treatment of community-acquired pneumonia and a COPD exacerbation. HOSPITAL COURSE AND DISCHARGE DIAGNOSES 1. Sepsis. The patient had an elevated white count of 21.4 with a left shift, was tachycardic and tachypneic and had respiratory acidosis and evidence of pneumonia as the source. His COPD and pneumonia were treated. The sepsis, resolved after several days. 2. Chronic obstructive pulmonary disease exacerbation. The patient required BiPAP for ventilation and oxygenation. He was put on IV steroids, nebulizers scheduled, Mucinex for pulmonary toilet and had a very slow improvement in his course. Two days before discharge, he again had worsening with wheezing and air hunger when his steroid dose was decreased too quickly. 3. Severe chronic obstructive pulmonary disease. His oxygen requirements decreased back to his baseline needs of 3-4 liters of oxygen per nasal cannula by the time of discharge. Patient is aware of his end-stage COPD. Recommendation is to obtain a Palliative Care consultation as an outpatient. He did participate in physical therapy and was therefore discharged to a [facility]: [facility] in [place], [place] for further physical therapy and occupational therapy. 2. Community-acquired pneumonia. His respiratory culture only grew Gayathri, for which he was on several days of Diflucan. He was also managed with empiric IV cefepime and IV Zithromax, and was discharged to take 7 more days of Zithromax plus Florastor for treatment of this. 3. Influenza A. His respiratory distress was also so significant because of being positive for influenza A, tested in the ER. While here, he finished his course of Tamiflu treatment. 4. Diabetes mellitus, type 2. Patient is on a carb-controlled diet. His home Metformin was on hold while here, in case of needing imaging with dye.. He was on insulin and discharged to the alf facility with both long-acting insulin and sliding scale short-acting insulin. 5. Gayathri of the mouth. Patient complained of burning and was felt to have oral candidiasis secondary to frequent steroid use. He was discharged with nystatin liquid oral t.i.d. treatment. 6. Anemia. This was felt to be anemia of chronic disease related to his above diagnoses. He did have B12 and folate levels done, which were adequate, and his iron stores were also adequate. 7. History of gastroesophageal reflux disease. Patient was kept on his oral management while here, including Tums and stress doses of Pepcid. 9. History of hypertension. His medications were continued while here. 10. History of coronary artery bypass graft. Patient had no evidence of angina or heart failure while here. LABORATORY AND IMAGING: Reviewed and summarized above. ALLERGIES: BUSPIRONE. MEDICATIONS AT THE TIME OF DISCHARGE 1. Alfuzosin 10 mg p.o. daily. 2. Xanax 0.5 mg p.o. t.i.d. p.r.n. 3. Lipitor 40 mg every night. 4. Zithromax 250 mg daily for 7 more days. 5. Pulmicort inhaler b.i.d. 6. Tums 500 mg t.i.d. 7. Carvedilol 25 mg b.i.d. 8. Vitamin D3 1000 units daily. 9. Pepcid 20 mg b.i.d. 10. Finasteride 5 mg p.o. daily. 11. Perforomist 20 mcg inhalation b.i.d. 12. Aspart insulin sliding scale. 13. Lantus insulin 10 units subcutaneous every night. 14. Lantus insulin 5 units every morning. 15. DuoNeb inhaler q.i.d. 16. Cozaar 25 mg b.i.d. 17. Medrol 4 mg p.o. t.i.d. 18. Multivitamin with mineral daily. 19. Nystatin liquid 5 mL p.o. t.i.d. 20. Florastor 250 mg p.o. b.i.d. for 7 more days. 21. Spiriva 1 puff inhalation daily. CONDITION AT DISCHARGE: Poor but stable. PHYSICAL EXAMINATION VITAL SIGNS: Blood pressure 115/61, pulse 100, afebrile, oxygenation 92% on 4 liters nasal cannula. HEENT: Reveals exophthalmus, chelsie skin of his face, cyanotic lips, dry oral mucosa. NECK: With positive JVD. CHEST: Clear with good air movement. HEART: Heart sounds distant. ABDOMEN: Soft, nontender. EXTREMITIES: No edema, but venous stasis changes present. NEUROLOGIC: Grossly intact. CODE STATUS: DNR. FOLLOWUP: This will be determined after his stay at the alf facility. Time required to complete this entire start discharge; SNF orders, dictation, chart review, discussion with patient and daughters at the bedside: 60 minutes. TD: 05/12/2018 19:30 EZ
== END 2018-05-12 14:34 | DRG 871 ==
LOC: EDUNIT# → ED 11:55 → MS2 14:33 → ICU 17:09 → MS2 05-09 18:20
PROVIDERS: ADMIT Internal Medicine; ATTEND Internal Medicine
DX: A41.9 Sepsis, unspecified organism (principal); J10.00 Influenza due to other identified influenza virus with unspecified type of pneumonia; B37.0 Candidal stomatitis; E87.2 Acidosis; E87.3 Alkalosis; I11.0 Hypertensive heart disease with heart failure; I50.9 Heart failure, unspecified; Z99.81 Dependence on supplemental oxygen; E78.00 Pure hypercholesterolemia, unspecified; J43.9 Emphysema, unspecified; E11.9 Type 2 diabetes mellitus without complications; K21.9 Gastro-esophageal reflux disease without esophagitis; M19.90 Unspecified osteoarthritis, unspecified site; I25.10 Atherosclerotic heart disease of native coronary artery without angina pectoris; Z95.1 Presence of aortocoronary bypass graft; Z79.52 Long term (current) use of systemic steroids; Z79.84 Long term (current) use of oral hypoglycemic drugs; F17.200 Nicotine dependence, unspecified, uncomplicated; R00.0 Tachycardia, unspecified; F41.9 Anxiety disorder, unspecified; Z66 Do not resuscitate; D63.8 Anemia in other chronic diseases classified elsewhere; H26.9 Unspecified cataract; R06.89 Other abnormalities of breathing; R41.82 Altered mental status, unspecified
CPT/HCPCS: 36415; 36600; 71045; 80048; 80076; 82607; 82728; 82803; 83036; 83540; 83605; 83615; 84466; 84484; 85025; 85044; 87040; 87070; 87205; 87275; 87276; 87640; 93005; 94640; 94660; 96365; 96375; 97110; 97162; 97530; 99284; 99285; A6250; A9270; J1815; J2270; J7509; J7626; 99283

== ENCOUNTER 2018-06-03 20:02 | Outpatient (CLI) | payer OTHER | END 2018-06-03 20:03 | disposition critical access hospital (66) | LOC: EMS 20:02 | PROVIDERS: ATTEND Surgery | DX: R06.00 Dyspnea, unspecified (principal); R06.2 Wheezing | CPT/HCPCS: A0425; A0427 ==

== ENCOUNTER 2018-06-03 20:10 | Emergency (ER) | payer OTHER ==
--- NOTE | 2018-06-03 20:31 | ED Physician Documentation ---
History of Present Illness - Stated complaint Stated Complaint: SOA/COPD - Chief complaint Chief Complaint: Resp - History obtained from History obtained from: Patient, EMS - History of Present Illness Timing: Today (This is a 67-year-old gent with history of coronary bypass, CHF, and COPD. He has had a tough couple of months with multiple ER visits for mostly COPD. He was admitted a few weeks ago for pneumonia. He stayed here and then subsequently went to a rehab facility in [place]. While at the rehab facility he reportedly developed a GI bleed. His recollection of this is somewhat vague, he does not think he got any blood but he vacillates on that. He says they were not able to find the source of the bleeding. Subsequently was discharged back to the rehab facility and now has been home for about 5 days. Over the last day or so he just says he cannot eat. He is mildly nauseous but says he just really is not hungry and he cannot really say why. He is short of breath but says he is really no more short of breath than normal. He denies a productive cough. He wears oxygen at home.) Review of Systems Constitutional: reports: Fatigue. denies: Fever, Chills Eyes: denies: Loss of vision, Decreased vision Cardiac: denies: Chest pain / pressure, Palpitations, Pedal edema, Calf pain Respiratory: reports: Dyspnea. denies: Cough GI: reports: Abdominal Pain (mild, LUQ), Diarrhea (better now). denies: Constipation PD PAST MEDICAL HISTORY - Past Medical History Cardiovascular: Congestive heart failure, Hypertension, High cholesterol Respiratory: COPD, Emphysema, Shortness of breath Neuro: Head injury Endocrine/Autoimmune: Type 1 diabetes GI: GERD : Benign prostate hypertrophy, Other HEENT: None Psych: None Musculoskeletal: Osteoarthritis - Past Surgical History Past Surgical History: Yes Cardiovascular: CABG HEENT: Cataracts - Present Medications Home Medications: Ambulatory Orders Medication Instructions Recorded Confirmed Alfuzosin HCl [Alfuzosin HCl ER] 10 mg PO DAILY #30 tab.er.24h 05/12/18 Azithromycin [Zithromax] 250 mg PO DAILY #7 tablet 05/12/18 Budesonide [Pulmicort] 0.5 mg INH RTBID #60 neb 05/12/18 Insulin Aspart [NovoLOG] 3 - 11 unit SUBQ 05/12/18 0800,1200,1700,2100 #4 pen Ipratropium/Albuterol [Duoneb] 3 ml INH RTQID PRN #120 neb 05/12/18 Losartan [Cozaar] 25 mg PO BID #30 tablet 05/12/18 Tiotropium [place] [Spiriva] 1 puffs INH DAILY #30 cap.w.dev 05/12/18 06/03/18 Amox/Clav 875/125 [Augmentin 1 tab ORAL BID 06/03/18 06/03/18 875/125] Aspirin Chewable [[place] 1 tab ORAL DAILY 06/03/18 06/03/18 Aspirin] Atorvastatin [Lipitor] 80 mg PO QPM 06/03/18 Budesonide/Formoterol Fumarate 2 puffs INH BID 06/03/18 06/03/18 [Symbicort 160-4.5 Mcg Inhaler] Carvedilol 6.25 mg PO BID 06/03/18 Cholecalciferol (Vitamin D3) 2,000 unit PO DAILY 06/03/18 [Vitamin D3] Docusate Sodium [Dss] 1 cap ORAL BID 06/03/18 06/03/18 Furosemide 20 mg ORAL DAILY 06/03/18 06/03/18 Levofloxacin [Levaquin] 1 tab ORAL DAILY 06/03/18 06/03/18 Omeprazole 1 tab ORAL BID 06/03/18 06/03/18 Prednisone ORAL DAILY 06/03/18 Torsemide 1 tab ORAL DAILY 06/03/18 06/03/18 metFORMIN [Glucophage] 1 tab ORAL BID 06/03/18 06/03/18 - Allergies Allergies/Adverse Reactions: Allergies Allergy/AdvReac Type Severity Reaction Status Date / Time buspirone [From BuSpar] Allergy Intermediate Respiratory Verified 06/03/18 20:22 - Social History Does the pt smoke?: Yes Smoking Status: Former smoker Does the pt drink ETOH?: Yes Does the pt have substance abuse?: No - Family History Family history: reports: Non contributory - Immunizations Immunizations are current?: Yes - POLST Patient has POLST: No PD ED PE NORMAL - Vitals Vital signs reviewed: Yes - General General: Alert and oriented X 3, Other (Slightly breathless and slightly pale) - HEENT HEENT: PERRL, EOMI - Neck Neck: Supple, no meningeal sign, No bony TTP - Cardiac Cardiac: Other (Tachycardic and regular without murmur) - Respiratory Respiratory: Other (Overall moderate air motion with mild rhonchi and wheezing but no real focal findings) - Abdomen Abdomen: Other (Somewhat protuberant and mildly tender in the left upper quadrant without surgical signs) - Back Back: No CVA TTP, No spinal TTP - Derm Derm: Normal color, Warm and dry - Extremities Extremities: No edema - Psych Psych: Normal mood, Normal affect Results - Vitals Vitals: Vital Signs - 24 hr 06/03/18 06/03/18 06/03/18 20:13 20:36 21:40 Temperature 36.3 C L Heart Rate 137 H 134 H Respiratory 20 28 H 22 Rate Blood Pressure 109/70 102/55 L O2 Saturation 95 100 93 Oxygen O2 Source [] 4.0 lit. O2 Source Nasal cannula Oxygen Flow Rate 3 - EKG (time done) 2019 Rate: Rate (enter#) (139) Rhythm: NSR, LAE [place]: Normal Intervals: Normal [place] QRS: Normal Ischemia: Non specific changes. No: ST elevation c/w ischemia Computer interpretation: Agree with computer - Labs Labs: Laboratory Tests 06/03/18 06/03/18 06/03/18 20:22 20:25 20:25 WBC 8.6 RBC 3.52 L Hgb 11.3 L Hct 34.6 L MCV 98.3 H MCH 32.0 H MCHC 32.5 RDW 19.1 H Plt Count 268 MPV 7.3 L Neut # (Auto) Not Reportable Lymph # (Auto) Not Reportable Bell # (Auto) Not Reportable Eos # (Auto) Not Reportable Baso # (Auto) Not Reportable Absolute Nucleated RBC Not Reportable Total Counted 100 Band Neuts % (Manual) 2 Abnorm Lymph % (Manual) 0 Metamyelocytes % 1 H Nucleated RBC % Not Reportable Neutrophils # (Manual) 5.9 Lymphocytes # (Manual) 1.3 L Monocytes # (Manual) 1.2 H Eosinophils # (Manual) 0.0 Basophils # (Manual) 0.1 Differential Comment MANUAL DIFFERENTIAL Manual Slide Review Indicated WBC Morphology NORMAL APPEARANCE Platelet Estimate NORMAL (130-450,000) Platelet Morphology NORMAL APPEARANCE RBC Morph Micro Appear 1+ POLYCHROMASIA PT 16.2 H INR 1.4 H VBG pH VBG pCO2 VBG pO2 VBG HCO3 VBG Total CO2 VBG O2 Saturation VBG Base Excess Sodium Potassium Chloride Carbon Dioxide Anion Gap BUN Creatinine Estimated GFR (MDRD) Glucose Calcium Total Bilirubin AST ALT Alkaline Phosphatase Troponin I B-Natriuretic Peptide Total Protein Albumin Globulin Albumin/Globulin Ratio Lipase Urine Color YELLOW Urine Clarity CLEAR Urine pH 5.0 Ur Specific [place] 1.010 Urine Protein NEGATIVE Urine Glucose (UA) NEGATIVE Urine Ketones NEGATIVE Urine Occult Blood NEGATIVE Urine Nitrite NEGATIVE Urine Bilirubin NEGATIVE Urine Urobilinogen 0.2 (NORMAL) Ur Leukocyte Esterase NEGATIVE Ur Microscopic Review NOT INDICATED Urine Culture Comments NOT INDICATED 06/03/18 06/03/18 06/03/18 20:25 20:25 20:25 WBC RBC Hgb Hct MCV MCH MCHC RDW Plt Count MPV Neut # (Auto) Lymph # (Auto) Bell # (Auto) Eos # (Auto) Baso # (Auto) Absolute Nucleated RBC Total Counted Band Neuts % (Manual) Abnorm Lymph % (Manual) Metamyelocytes % Nucleated RBC % Neutrophils # (Manual) Lymphocytes # (Manual) Monocytes # (Manual) Eosinophils # (Manual) Basophils # (Manual) Differential Comment Manual Slide Review WBC Morphology Platelet Estimate Platelet Morphology RBC Morph Micro Appear PT INR VBG pH VBG pCO2 VBG pO2 VBG HCO3 VBG Total CO2 VBG O2 Saturation VBG Base Excess Sodium 134 L Potassium 3.8 Chloride 98 L Carbon Dioxide 24 Anion Gap 12.0 BUN 8 Creatinine 0.6 Estimated GFR (MDRD) 134 Glucose 143 H Calcium 8.2 L Total Bilirubin 1.3 H AST 28 ALT 47 Alkaline Phosphatase 142 H Troponin I 0.04 B-Natriuretic Peptide 205 H Total Protein 6.3 L Albumin 2.6 L Globulin 3.7 Albumin/Globulin Ratio 0.7 L Lipase 28 Urine Color Urine Clarity Urine pH Ur Specific [place] Urine Protein Urine Glucose (UA) Urine Ketones Urine Occult Blood Urine Nitrite Urine Bilirubin Urine Urobilinogen Ur Leukocyte Esterase Ur Microscopic Review Urine Culture Comments 06/03/18 21:04 WBC RBC Hgb Hct MCV MCH MCHC RDW Plt Count MPV Neut # (Auto) Lymph # (Auto) Bell # (Auto) Eos # (Auto) Baso # (Auto) Absolute Nucleated RBC Total Counted Band Neuts % (Manual) Abnorm Lymph % (Manual) Metamyelocytes % Nucleated RBC % Neutrophils # (Manual) Lymphocytes # (Manual) Monocytes # (Manual) Eosinophils # (Manual) Basophils # (Manual) Differential Comment Manual Slide Review WBC Morphology Platelet Estimate Platelet Morphology RBC Morph Micro Appear PT INR VBG pH 7.447 H VBG pCO2 38.0 L VBG pO2 33.6 VBG HCO3 25.6 VBG Total CO2 26.8 VBG O2 Saturation 64.5 VBG Base Excess 1.6 Sodium Potassium Chloride Carbon Dioxide Anion Gap BUN Creatinine Estimated GFR (MDRD) Glucose Calcium Total Bilirubin AST ALT Alkaline Phosphatase Troponin I B-Natriuretic Peptide Total Protein Albumin Globulin Albumin/Globulin Ratio Lipase Urine Color Urine Clarity Urine pH Ur Specific [place] Urine Protein Urine Glucose (UA) Urine Ketones Urine Occult Blood Urine Nitrite Urine Bilirubin Urine Urobilinogen Ur Leukocyte Esterase Ur Microscopic Review Urine Culture Comments - Rads (name of study) 1v chest Radiology: EMP read contemporaneously (1. Status post median sternotomy for coronary artery bypass grafting. 2. There is reticular opacity within the right mid and lower lung and within the left lower lung. The right-sided opacity is slightly increased as compared to the previous examination. This could represent lung edema, superimposed on chronic lung disease. 3. Costophrenic sulcus blunti ng could represent small effusions. 4. There is no evidence of pneumothorax.) CTA Chest Radiology: EMP read contemporaneously (Small clot burden PE in the right middle lobe segmental branch. There is no evidence of central embolus or heart strain. Patchy consolidation in both lower lobes and right upper lobe consistent with multifocal pneumonia.) PD MEDICAL DECISION MAKING - ED course ED course: This is a 67-year-old gent with history of COPD, coronary disease, prostate cancer, CVA who was discharged from this facility to a rehab facility and then went from the rehab facility and was admitted to [facility] in late April with hematochezia. He had a CT of the abdomen showing the source of the bleeding was the proximal silk sigmoid colon per review of the records that we obtained from [place]. And this was followed by angiography and IR showing no source of bleeding and no intervention was done. His hematocrit dropped from 38-31 and he did not require transfusion. He presents today with poor appetite and significant tachycardia. His lungs actually do not sound too bad and his sats are acceptable. Workup showed a chest x-ray pretty much unchanged or slightly worsened from prior with right Basilar infiltrate. This was followed with a CT angiogram of the chest which to my eye shows a small PE. This is concerning given the recent GI bleed and he may need a higher level of care that has the ability to do things like IVC filter. [facility] to the medical pathologist of the day Nikhil. And I spoke with Dr. Brand here who felt he needed a higher level of care. We called [facility] back because that is where he was just discharged from and they are full. Accepted to [facility] for higher level care by Dr. Viktor El at 10:25 PM and cobras were completed. He was started on heparin which is a measure to risk given the recent GI bleed. Also persistent PNA on CT, given Cefepime/Vanc p blooc cx. - Critical Care Time(min): 40 Time Includes: Direct patient care, Review records, Reassess patient, Document care, Coordinate care, Medical consult, Family consult for tx dec Data interpretation: Labs, Pulse ox Procedures included in critical care time: Peripheral IV Departure - Departure Disposition: 02 Transfer Acute Care Hosp Clinical Impression: COPD exacerbation CAP (community acquired pneumonia) Qualifiers: Laterality: unspecified laterality Qualified Code(s): J18.9 - Pneumonia, unspecified organism DM type 2 (diabetes mellitus, type 2) Qualifiers: Diabetes mellitus fci insulin use: with fci use Diabetes mellitus complication status: without complication Qualified Code(s): E11.9 - Type 2 diabetes mellitus without complications Pulmonary embolism Qualifiers: Pulmonary embolism type: other Chronicity: acute Acute cor pulmonale presence: without acute cor pulmonale Qualified Code(s): I26.99 - Other pulmonary embolism without acute cor pulmonale Condition: Serious
[2018-06-03 20:32] LABS: BASOPHILS % (AUTO) 0.6 %; EOSINOPHILS % (AUTO) 0.3 %; HGB - HEMOGLOBIN 11.3 g/dL (14.0-18.0); LYMPHOCYTES % (AUTO) 19.8 %; MEAN CORPUSCULAR HGB CONC 32.5 g/dL (32.0-36.0); MEAN CORPUSCULAR VOLUME 98.3 fL (80.0-94.0); MEAN PLATELET VOLUME 7.3 fL (7.4-11.4); MONOCYTES % (AUTO) 10.9 %; NEUTROPHILS % (AUTO) 68.4 %; PLT - PLATELET COUNT 268 10^3/uL (130-450); RED BLOOD COUNT 3.52 10^6/uL (4.70-6.10); RED CELL DISTRIBUTION WIDTH 19.1 % (12.0-15.0); WHITE BLOOD COUNT 8.6 x10^3/uL (4.8-10.8)
[2018-06-03 20:36] LABS: ABNORMAL LYMPHS % (MANUAL) 0 %; INR 1.4 (0.8-1.2); PT - PROTHROMBIN TIME 16.2 secs (9.9-12.6)
[2018-06-03 20:37] LABS: BILIRUBIN,URINE NEGATIVE (NEGATIVE); GLUCOSE, URINE (UA) NEGATIVE (NEGATIVE); KETONES,URINE (UA) NEGATIVE (NEGATIVE); LEUKOCYTE ESTERASE, URINE NEGATIVE (NEGATIVE); NITRITE,URINE NEGATIVE (NEGATIVE); OCCULT BLOOD,URINE NEGATIVE (NEGATIVE); PROTEIN,URINE NEGATIVE (NEGATIVE); UROBILINOGEN,URINE 0.2 (NORMAL) E.U./dL (NORMAL)
[2018-06-03 20:38] LABS: CLARITY,URINE CLEAR (CLEAR)
[2018-06-03 20:46] LABS: ALBUMIN 2.6 g/dL (3.2-5.5); ALBUMIN/GLOBULIN RATIO 0.7 (1.0-2.2); BILIRUBIN,TOTAL 1.3 mg/dL (0.2-1.0); CALCIUM 8.2 mg/dL (8.5-10.3); CREATININE 0.6 mg/dL (0.6-1.2); TOTAL PROTEIN 6.3 g/dL (6.7-8.2)
--- NOTE | 2018-06-03 20:51 | XRAY Report ---
Reason: dyspnea Procedure Date: 06/03/2018 Accession Number: [id number] / [id number] Procedure: XR - Chest 1 View X-Ray CPT Code: 73111 FULL RESULT: EXAM: CHEST RADIOGRAPHY EXAM DATE: 06/03/2018 08:33 PM. CLINICAL HISTORY: Dyspnea. COMPARISON: CHEST 1 VIEW 05/06/2018 9:07 PM. TECHNIQUE: 1 view. FINDINGS: Lungs/Pleura: Likely left lung emphysema. There is reticular opacity within the right mid and lower lung and within the left lower lung. There is costophrenic sulcus blunting. Mediastinum: Heart size is normal. Patient has undergone median sternotomy for coronary artery bypass grafting. Other: None. IMPRESSION: 1. Status post median sternotomy for coronary artery bypass grafting. 2. There is reticular opacity within the right mid and lower lung and within the left lower lung. The right-sided opacity is slightly increased as compared to the previous examination. This could represent lung edema, superimposed on chronic lung disease. 3. Costophrenic sulcus blunting could represent small effusions. 4. There is no evidence of pneumothorax. RADIA
[2018-06-03 20:54] LABS: BAND NEUTROPHILS % (MANUAL) 2 %; BASOPHILS # (MANUAL) 0.1 10^3/uL (0-0.1); BASOPHILS % (MANUAL) 1 %; DIFFERENTIAL COMMENT MANUAL DIFFERENTIAL; LYMPHOCYTES # (MANUAL) 1.3 10^3/uL (1.5-3.5); LYMPHOCYTES % (MANUAL) 15 %; METAMYELOCYTES % (MANUAL) 1 %; MONOCYTES # (MANUAL) 1.2 10^3/uL (0.0-1.0); NEUTROPHILS # (MANUAL) 5.9 10^3/uL (1.5-6.6); NEUTROPHILS % (MANUAL) 67 %; PLATELET ESTIMATE, MANUAL NORMAL (130-450,000) (NORMAL); PLATELET MORPHOLOGY NORMAL APPEARANCE (NORMAL)
[2018-06-03 21:12] LABS: VBG BASE EXCESS 1.6 mmol/L (-2 - +2); VBG PH 7.447 (7.31-7.41); VBG PO2 33.6 mmHg (25-47); VBG TOTAL CO2 26.8 mmol/L (24-29)
[2018-06-03] MEDS ORDERED: SODIUM CHLORIDE 0.9% 1,000 ML IV ONE (21:12)
[2018-06-03] MEDS ORDERED: IOVERSOL 320 100 ML VIAL IVP ONE ×2 (21:37→22:02)
[2018-06-03] MEDS ORDERED: HEPARIN 25000UNITS/500ML (D5W) 25,000 UNIT/500 ML BAG IV STA (22:15)
[2018-06-03] MEDS ORDERED: HEPARIN 5,000 UNIT/ML VIAL IVP STA (22:25)
[2018-06-03] MEDS ORDERED: VANCOMYCIN INJ 1.5 GM in SODIUM CHLORIDE 0.9% 500 ML IV STA (22:31)
[2018-06-03] MEDS ORDERED: CEFEPIME 2 GM in SODIUM CHLORIDE 0.9% MINIBAG 100 ML IV STA (22:31)
--- NOTE | 2018-06-03 22:33 | CT Report ---
Reason: dyspnea, tachycardia, PE protocol Procedure Date: 06/03/2018 Accession Number: [id number] / [id number] Procedure: CT - ANGIO CHEST W/WO CPT Code: FULL RESULT: EXAM: CT ANGIOGRAM CHEST EXAM DATE: 06/03/2018 10:04 PM. CLINICAL HISTORY: Dyspnea, tachycardia, PE protocol. COMPARISON: None. TECHNIQUE: Routine helical imaging was performed through the chest in the pulmonary arterial phase. IV Contrast: [id number]. Reconstructions: Coronal 3-D MIP reconstructions.Sagittal and coronal. In accordance with CT protocol optimization, one or more of the following dose reduction techniques were utilized for this exam: automated exposure control, adjustment of mA and/or KV based on patient size, or use of iterative reconstructive technique. FINDINGS: Pulmonary Arteries: Diagnostic quality: Adequate through the segmental arteries. There is a small amount of pulmonary embolus within branch vessels supplying the right middle lobe. No other embolus is seen. No evidence of central embolus. No right heart strain. Lungs/Pleura: There is emphysema. There is patchy bibasilar consolidation with associated architectural distortion. There is also some patchy opacity and architectural distortion within the right upper lobe. Findings could represent pneumonia. There are small bilateral pleural effusions. There is no evidence of pneumothorax. Mediastinum: There is mild cardiomegaly. There is thoracic aortic calcification. There are no enlarged thoracic lymph nodes. Thoracic Aorta: There is no evidence of aortic dissection or aneurysm. Upper Abdomen: There is cholelithiasis. The visualized portions of the upper abdominal organs demonstrate no acute abnormalities. Other: None. IMPRESSION: 1. Study is positive for acute pulmonary embolism. Small clot burden. There is thrombus within the interlobar pulmonary artery extending into the segmental branch vessel supplying the medial segment of the right middle lobe. 2. There is no evidence of central embolus. No right heart strain. 3. There are areas of patchy consolidation and architectural distortion within the bilateral lower lobes and right upper lobe. This could represent multifocal pneumonia. 4. There is emphysema. 5. No evidence of pneumothorax. [facility] The call report notification system was initiated by Dr. Megan Hoover at 10:27 PM on 06/03/2018. The above call report findings were discussed with Patrick Gonzalez by Dr. Megan Hoover at 10:31 PM on 06/03/2018.
[2018-06-04 00:31] VITALS: BP 115/62
== END 2018-06-04 00:35 | disposition short-term general hospital (02) ==
LOC: EDUNIT# → ED 20:10
DX: J44.1 Chronic obstructive pulmonary disease with (acute) exacerbation (principal); J18.9 Pneumonia, unspecified organism; R00.0 Tachycardia, unspecified; I11.0 Hypertensive heart disease with heart failure; I50.9 Heart failure, unspecified; E78.00 Pure hypercholesterolemia, unspecified; E10.9 Type 1 diabetes mellitus without complications; Z86.73 Personal history of transient ischemic attack (TIA), and cerebral infarction without residual deficits; Z85.46 Personal history of malignant neoplasm of prostate
CPT/HCPCS: 36415; 71045; 71275; 80053; 81003; 82803; 83605; 83690; 83880; 84484; 85025; 85610; 87040; 93005; 96361; 96365; 96375; 99284; 99291; J3370; Q9967; 81001; 87086; 99285